=== PATIENT | female | born 1960 | race Caucasian/White ===

== ENCOUNTER 2021-12-30 08:47 | Day surgery (SDC) | payer MEDICARE, MEDICAID, SELFPAY ==
[2021-12-08 11:40] VITALS: BMI 26.4
--- NOTE | 2021-12-29 11:08 | P.CONAN_ITS ---
Documented by User: Rhina Varela NP 12/29/21 11:09 HPI - Anesthesia Eval Consult details Narrative: 61yo F for Upper Endoscopy and Colonoscopy Chronic opioids PMFSH Past Medical History Medical History (Updated 12/08/21 @ 11:33 by Amanda Roth RN) Diabetes Elevated cholesterol Fibromyalgia HTN (hypertension) Migraines Osteoarthritis Surgical History Surgical History (Updated 12/08/21 @ 11:33 by Amanda Roth RN) History of left oophorectomy Hx of cervical discectomy Hx of cholecystectomy Hx of reduction mammoplasty Social History Social History Patient Tobacco Use Status: Tobacco use Unknown Use of substances other than those prescribed or required for medical reasons: No Advance Directives Information Provided: Yes Advance Directives on File: No Meds Allergies Allergy/AdvReac Type Severity Reaction Status Date / Time Seasonal Allergies Allergy Intermediate Itchy Verified 12/08/21 11:39 Eyes/nasal congestion Home Medications Medication Instructions Recorded Confirmed Last Taken Type albuterol sulfate 90 mcg/actuation 2 puff INHALATION Q4-6H PRN 12/08/21 12/08/21 Unknown History aerosol inhaler (Ventolin HFA) amitriptyline 25 mg tablet 25 mg PO BEDTIME 12/08/21 12/08/21 Unknown History aspirin 81 mg tablet,delayed 81 mg PO DAILY 12/08/21 12/08/21 Unknown History release atorvastatin 20 mg tablet 20 mg PO BEDTIME 12/08/21 12/08/21 Unknown History cetirizine 10 mg tablet 10 mg PO DAILY 12/08/21 12/08/21 Unknown History cyclobenzaprine 5 mg tablet 5 mg PO BEDTIME 12/08/21 12/08/21 Unknown History docusate sodium 100 mg capsule 100 mg PO DAILY 12/08/21 12/08/21 Unknown History (Colace) duloxetine 60 mg capsule,delayed 60 mg PO DAILY 12/08/21 12/08/21 Unknown History release sprinkle lisinopril 5 mg tablet 5 mg PO DAILY 12/08/21 12/08/21 Unknown History metformin 500 mg tablet 500 mg PO DAILY 12/08/21 12/08/21 Unknown History metoprolol tartrate 50 mg tablet 50 mg PO BID 12/08/21 12/08/21 Unknown History oxycodone 10 mg tablet 10 mg PO Q6H PRN 12/08/21 12/08/21 Unknown History pantoprazole 40 mg tablet,delayed 40 mg PO DAILY 12/08/21 12/08/21 Unknown History release sumatriptan succinate 50 mg tablet 50 mg PO Q2-4H PRN 12/08/21 12/08/21 Unknown History (Imitrex) Exam Exam Date and Time: December 29, 2021 1108 Height,Weight and Vital Signs: Height 5 ft 1 in Weight 63.503 kg Assessment and Plan Assessment Anesthesia Assessment: Chart Reviewed Documented by User: Sheri Lind MD 12/30/21 10:19 [facility] Past Medical History Medical History (Updated 12/08/21 @ 11:33 by Amanda Roth RN) Diabetes Elevated cholesterol Fibromyalgia HTN (hypertension) Migraines Osteoarthritis Family History Family history of problems with anesthesia: No Surgical History Surgical History (Updated 12/08/21 @ 11:33 by Amanda Roth RN) History of left oophorectomy Hx of cervical discectomy Hx of cholecystectomy Hx of reduction mammoplasty History of Problems with Anesthesia: No Social History Social History Patient Tobacco Use Status: Tobacco use Unknown Use of substances other than those prescribed or required for medical reasons: No Advance Directives Information Provided: Yes Advance Directives on File: No Meds Allergies Allergy/AdvReac Type Severity Reaction Status Date / Time Seasonal Allergies Allergy Intermediate Itchy Verified 12/08/21 11:39 Eyes/nasal congestion Home Medications Medication Instructions Recorded Confirmed Last Taken Type albuterol sulfate 90 mcg/actuation 2 puff INHALATION Q4-6H PRN 12/08/21 12/08/21 Unknown History aerosol inhaler (Ventolin HFA) amitriptyline 25 mg tablet 25 mg PO BEDTIME 12/08/21 12/08/21 Unknown History aspirin 81 mg tablet,delayed 81 mg PO DAILY 12/08/21 12/08/21 Unknown History release atorvastatin 20 mg tablet 20 mg PO BEDTIME 12/08/21 12/08/21 Unknown History cetirizine 10 mg tablet 10 mg PO DAILY 12/08/21 12/08/21 Unknown History cyclobenzaprine 5 mg tablet 5 mg PO BEDTIME 12/08/21 12/08/21 Unknown History docusate sodium 100 mg capsule 100 mg PO DAILY 12/08/21 12/08/21 Unknown History (Colace) duloxetine 60 mg capsule,delayed 60 mg PO DAILY 12/08/21 12/08/21 Unknown History release sprinkle lisinopril 5 mg tablet 5 mg PO DAILY 12/08/21 12/08/21 Unknown History metformin 500 mg tablet 500 mg PO DAILY 12/08/21 12/08/21 Unknown History metoprolol tartrate 50 mg tablet 50 mg PO BID 12/08/21 12/08/21 Unknown History oxycodone 10 mg tablet 10 mg PO Q6H PRN 12/08/21 12/08/21 Unknown History pantoprazole 40 mg tablet,delayed 40 mg PO DAILY 12/08/21 12/08/21 Unknown History release sumatriptan succinate 50 mg tablet 50 mg PO Q2-4H PRN 12/08/21 12/08/21 Unknown History (Imitrex) Exam Height,Weight and Vital Signs: Height 5 ft 1 in Weight 63.503 kg Vital Signs Temp Pulse Resp BP Pulse Ox 12/30/21 08:51 98.5 F 100 16 147/77 H 98 Pertinent Lab Results Pertinent Lab Results: Lab Results 12/30/21 Range/Units 08:57 POC Glucose 147 H (60-115) mg/dL Airway Mallampati Class: II TM Dist: >3cm Neck ROM: Full Partial: Upper Heart: RRR Lungs: CTAB Assessment and Plan Assessment Anesthesia Assessment: Anesthesia Plan Discussed Final Anesthetic Review Family History of Problems with Anesthesia: No History of Problems with Anesthesia: No NPO: Yes ASA Class: II Final Preanesthetic Review: No Changes in Pt Med Stat, Meds/Allgs Chart Reviewed, Consent Obtained/Reviewed and Anes Risks/Benef Reviewed Patient Risk: Low Procedure Risk: Low Assessment/Block/Sedation in SS: Assess/Block/Sedation-SS Anesthetic Plan Anesthetic Plan: MAC: Disposition: Standard PACU
[2021-12-30 08:51] VITALS: BP 147/77; PULSE 100; RESP 16; TEMP 36.9; O2SAT 98
[2021-12-30 09:01] LABS: Glucose, Whole Blood 147 mg/dL (60-115)
[2021-12-30] MEDS: Lactated Ringers 1,000 ML 100 ML IVCONT (09:16)
--- NOTE | 2021-12-30 09:42 | MHC.SHP ---
Pre-Procedural Eval Section A Date of Service: 12/30/21 Section B Chief Complaint: epgastric pain Details of Present Illness: see h&p no changes Relevant Family History (Specify if Yes): No Relevant Social History: None Present Medications: see Short Stay Collaborative assessment Medical History: No relevant PMH History of Previous Operations: No relevant previous surgery Allergies: Allergies Allergy/AdvReac Type Severity Reaction Status Date / Time Seasonal Allergies Allergy Intermediate Itchy Verified 12/08/21 11:39 Eyes/nasal congestion Review of Systems Sugical H&P ROS: Negative: Constitution, Cardiovascular, Respiratory, Neurological, Psychiatric, Hem-Onc, Allergic/Immunologic, Gastrointestinal, Genitourinary, Musculoskeletal, Integumentary, Endocrine and Eyes/Ears/Nose/Throat Exam Surgical H&P Exam: Normal: HEENT, Normal: Heart, Normal: Lungs, Normal: Extremities, Normal: Abdomen, Normal: Skin and Normal: Neurological Plan Diagnosis/Plan: Unchanged I have reviewed the history and physical and performed a pertinent physical examination on my patient. No changes have occurred unless specified.
--- NOTE | 2021-12-30 10:26 | P.BOP_ITS ---
Brief Operative Note Date of Service: 12/30/21 Pre-op diagnosis: gerd screening Post-op diagnosis: same Procedure: egd colonoscopy Surgeon: Yonatan Nicole Anesthesia: MAC Was an [employer] Wireman used for this Procedure?: No Estimated blood loss (mL): 2 Pathology: other (bxs antrum and egj) Condition: stable Disposition: PACU
[2021-12-30 10:28] VITALS: BP 101/56; PULSE 81; RESP 16; TEMP 37; O2SAT 97
[2021-12-30 10:40] VITALS: BP 116/65; PULSE 81; RESP 18; TEMP 36.7; O2SAT 98
--- NOTE | 2021-12-30 20:58 | OP_ITS ---
SURGEON: Yonatan Nicole MD INDICATIONS: 1. Gastroesophageal reflux disease. 2. Colon cancer screening. PREOPERATIVE DIAGNOSIS: POSTOPERATIVE DIAGNOSIS: PROCEDURE PERFORMED: 1. Upper endoscopy with biopsy. 2. Colonoscopy to the terminal ileum. ESTIMATED BLOOD LOSS: COMPLICATIONS: ANESTHESIA: Monitored anesthesia care. ASSISTANTS: SPECIMENS: DESCRIPTION OF PROCEDURE: History and physical performed. The risks and benefits of the procedure were explained to the patient. Informed consent was obtained. The patient was placed in the left lateral decubitus position. The Olympus video gastroscope was introduced into the esophagus, stomach, and duodenum. Examination was performed. The scope was removed. She was repositioned for colonoscopy. A digital rectal exam was performed and was found to be normal. The Olympus pediatric video colonoscope was introduced into the rectum and advanced to the cecum without difficulty. The cecum was identified by transillumination, palpation, and identification of ileocecal valve. Examination was performed. The scope was removed. She tolerated both procedures well and was returned to recovery area in stable condition. FINDINGS: Upper endoscopy: 1. Esophagus: The esophagus was normal. There was no esophagitis. Biopsies were obtained from the EG junction. 2. Stomach: The stomach showed no evidence of masses, ulcers, or polyps. Antral biopsies were obtained. 3. Duodenum: The bulb and second portion were normal. Colonoscopy: The terminal ileum was normal. The visualized colonic mucosa was within normal limits without evidence of masses or ulcers. No polyps were identified. The quality of the prep was good. There were a few diverticula seen in the colon, mainly in the sigmoid. No polyps were identified. Retroflexed examination showed some small internal hemorrhoids. IMPRESSION: 1. Gastroesophageal reflux disease. 2. Normal colonoscopy. RECOMMENDATION: 1. Follow up the biopsy results. 2. Repeat colonoscopy is recommended in 10 years for average risk individuals. MD THAD Santiago/LIGIA / [id number]
== END 2021-12-30 11:24 | disposition home or self-care (01) ==
PROVIDERS: PCP Internal Medicine Geriatric Medicine; Visit Provider Internal Medicine Gastroenterology
PROC: (CPT 43239; principal; 2021-12-30 09:50)
DX: Z12.11 Encounter for screening for malignant neoplasm of colon (principal); K57.30 Diverticulosis of large intestine without perforation or abscess without bleeding; K64.8 Other hemorrhoids; R10.12 Left upper quadrant pain; R10.13 Epigastric pain; K21.9 Gastro-esophageal reflux disease without esophagitis; I10 Essential (primary) hypertension; E78.00 Pure hypercholesterolemia, unspecified; M79.7 Fibromyalgia; N80.9 Endometriosis, unspecified; E11.9 Type 2 diabetes mellitus without complications; Z79.84 Long term (current) use of oral hypoglycemic drugs; Z79.899 Other long term (current) drug therapy; Z90.49 Acquired absence of other specified parts of digestive tract
CPT/HCPCS: 43239; G0121; 82947; 88305; 88342

== ENCOUNTER 2023-04-22 14:48 | Outpatient (REF) | payer MEDICARE, SELFPAY ==
--- NOTE | ~2023-04-22 | MM_ITS ---
EXAMINATION: MM SCREENING DIGITAL BREAST TOMOSYNTHESIS, BILATERAL CLINICAL INFORMATION: Screening. Asymptomatic. The lifetime risk of breast cancer based on the Tyrer-Cuzick Model is 14%. COMPARISON: Outside mammography: 06/08/2019, 06/07/2018, 06/04/2017 ([facility]). TECHNIQUE: Digital breast tomosynthesis is performed in both the craniocaudal and mediolateral oblique views along with computer-aided detection (CAD). Synthesized 2D images are generated from the tomosynthesis. FINDINGS: The breasts are almost entirely fatty (ACR BI-RADS breast composition Category a). Background stromal markings are similar to outside studies. No developing density or architectural abnormality. There are no significant masses, abnormal calcifications, or other abnormalities. The axilla and skin contours are unremarkable. MM/MM tomosynthesis screening BI IMPRESSION: No mammographic evidence of malignancy. ASSESSMENT: BI-RADS 1: Negative RECOMMENDATION: Routine annual mammography screening. This patient's information was entered into a reminder system with a target due date for their next mammogram.
== END 2023-04-22 14:49 | disposition home or self-care (01) ==
LOC: HO.MAMMO 14:48
PROVIDERS: PCP Internal Medicine Geriatric Medicine; Visit Provider Internal Medicine Geriatric Medicine
DX: Z12.31 Encounter for screening mammogram for malignant neoplasm of breast (principal)
CPT/HCPCS: 77063; 77067

== ENCOUNTER 2023-05-26 15:20 | Outpatient (REF) | payer MEDICARE, MEDICAID, SELFPAY | END 2023-05-26 15:21 | disposition home or self-care (01) | LOC: HO.LNP 15:20 | PROVIDERS: PCP Internal Medicine Geriatric Medicine; Visit Provider Obstetrics & Gynecology | DX: R87.610 Atypical squamous cells of undetermined significance on cytologic smear of cervix (ASC-US) (principal); R87.810 Cervical high risk human papillomavirus (HPV) DNA test positive | CPT/HCPCS: 57454; 88305 ==

== ENCOUNTER 2023-05-26 15:20 | Outpatient (AMB) | payer MEDICARE, SELFPAY ==
--- NOTE | 2023-05-26 15:26 | MHC.OFFVIS ---
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 Ref/F/U Printer Slotter Feeder Required: Yes Printer Slotter Feeder Language: Digital Marketing Associate Name: Missy Information Interpreted: non-clinical & clinical Medical Imaging Tech: Medical Imaging Tech Present (Missy) Allergies Seasonal Allergies Allergy (Intermediate, Verified 05/26/23 15:33) Itchy Eyes/nasal congestion Is last menstrual period known: No Post menopausal: Yes HPI HPI Comments History of Present Illness Details Presenting from [facility] regarding ascus/HPV positive on Pap smear [facility] Medical History Diabetes Elevated cholesterol Fibromyalgia HTN (hypertension) Migraines Osteoarthritis Surgical History History of left oophorectomy Hx of cervical discectomy Hx of cholecystectomy Hx of reduction mammoplasty Family History Father Colon cancer Mother Breast cancer Social History Patient Tobacco Use Status: Tobacco use Unknown Female Reproductive History Menstrual Age of Menarche: 14 control method: none Total pregnancies: 4 Ab spontaneous: 4 History of abnormal pap smear: Yes Review of Systems Const All systems reviewed & are unremarkable except as noted in HPI and below Physical Exam Vital Signs: Last Vital Signs BP 154/90 H 05/26/23 15:28 BMI result Body Mass Index 23.4 General: Yes no CVA tenderness External Female Exam: normal external appearance and normal appearance of the urethra Speculum Exam - Vagina: normal appearance of the vagina, normal palpation, no lesions and no masses Speculum Exam - Cervix: normal appearance of the cervix, normal palpation, no lesions, no masses and nontender Bimanual exam- vagina & uterus: normal bimanual exam, normal palpation, uterine size normal, normal palpation, uterine shape normal, No Cervical tenderness present and non-tender Bimanual Exam- Adnexa, other: normal adnexae Back/Spine/Pelvis Back: no CVA tenderness Office Procedures Colposcopy Before the procedure was started discussed with the patient the procedure, alternatives & all the risks associated with the procedure (bleeding, infection, injury to vagina, bladder, vessels, possible need for transfusion with all its risks) then patient signed the consent Pap smear = ascus/HPV positive Speculum inserted, acetic acid used Colposcopy done Transformation zone seen, acetowhite lesions identified at 6 o?clock, cervical biopsies taken from 6 o?clock, ECC done afterwards. Vaginoscopy of the upper vagina showed no evidence of any aceto-white lesions Monsel solution used for hemostasis. The patient tolerated well . At the end the patient was instructed to call if temp>100.4, abdominal pain, n/v, bleeding; The patient was given the following instructions: nothing per vagina, no intercourse or bath tub use. All questions answered the patient verbalized understanding. Instructed the patient to make an appointment in 2 weeks for follow-up This note was generated with a voice recognition program. Some errors may have been overlooked during the review of this note. Sometimes these errors may affect the content or meaning of a given sentence. 48873-Tvecertwl of cervix including upper vagina with biopsy and ECC Procedure code (CPT) selection complete Assessment & Plan Assessment & Plan (1) ASCUS with positive high risk HPV cervical: Code(s): R87.610 - Atypical squamous cells of undetermined significance on cytologic smear of cervix (ASC-US); R87.810 - Cervical high risk human papillomavirus (HPV) DNA test positive Plan: Discussed with the patient the result of her abnormal pap, its significance, risk of progression, persistence, and regression if untreated. the false positive/negative rate being a screening test, the need for diagnostic test -colposcopy, biopsy, endocervical curettage. The patient verbalized understanding and agreed with the plan, all questions answered. Colpo done, see procedure note Orders: Orders AMB Colposcopy Today R87.610 - Atypical squamous cells of undetermined significance on cytologic smear of cervix (ASC-US), R87.810 - Cervical high risk human papillomavirus (HPV) DNA test positive Coding Level of Care Code Procedure Only Diagnoses ASCUS with positive high risk HPV cervical R87.610; R87.810 CPT Codes Colposcopy - CPT: 38919-Vlfzpbzok of cervix including upper vagina with biopsy and ECC ([id number])
[2023-05-26 15:28] VITALS: BP 154/90; BMI 23.4
== END 2023-05-26 15:49 | disposition home or self-care (01) ==
LOC: HO.HWS 15:20
PROVIDERS: PCP Internal Medicine Geriatric Medicine; Visit Provider Obstetrics & Gynecology
DX: R87.610 Atypical squamous cells of undetermined significance on cytologic smear of cervix (ASC-US) (principal)
CPT/HCPCS: 57454

== ENCOUNTER 2023-07-27 15:56 | Outpatient (AMB) | payer MEDICARE, MEDICAID, SELFPAY ==
--- NOTE | 2023-07-27 15:59 | MHC.OFFVIS ---
Intake Intake Visit Reasons: COLPO Resuls ok per Missy Irb Compliance Coordinator Required: Yes Irb Compliance Coordinator Language: Taping Supervisor Name: Missy Ramos Allergies Seasonal Allergies Allergy (Intermediate, Verified 07/27/23 16:00) Itchy Eyes/nasal congestion Is last menstrual period known: No Post menopausal: Yes HPI HPI Comments History of Present Illness Details Presenting post colpo for follow-up. The patient is doing well with no complaints. The pathology showed the following: A. Endocervix, curettage: Predominantly mucin and few fragments of endocervical glands; negative for squamous intraepithelial lesion. B. Cervix, biopsy: Predominately denuded mucosa with mild chronic inflammation and scant endocervical mucosa; negative for squamous intraepithelial lesion. COMMENT: Note is made of the patient's previous Pap smear (ASCUS; HPV+) PFSH Medical History Elevated cholesterol Osteoarthritis Migraines Fibromyalgia Diabetes HTN (hypertension) Surgical History Hx of cholecystectomy History of left oophorectomy Hx of reduction mammoplasty Hx of cervical discectomy Family History Father Colon cancer Mother Breast cancer Social History Patient Tobacco Use Status: Tobacco use Unknown Female Reproductive History Menstrual Age of Menarche: 14 control method: none Review of Systems Const All systems reviewed & are unremarkable except as noted in HPI and below Reports as per HPI and Reports no additional complaints GI Reports no additional complaints Reports no additional complaints Assessment & Plan Assessment & Plan (1) ASCUS with positive high risk HPV cervical: Code(s): R87.610 - Atypical squamous cells of undetermined significance on cytologic smear of cervix (ASC-US); R87.810 - Cervical high risk human papillomavirus (HPV) DNA test positive Plan: Discussed with the patient the pathology results of the colposcopy biopsies & endocervical curettage ( negative). Discussed with the patient the sensitivity specificity, positive and negative predictive value in detecting cervical cancer in addition discussed the regression, persistence and progression rates. Recommended co-testing in 12 months, if cytology and or HPV are abnormal will proceed was colposcopy biopsy and endocervical curettage. Instructions given to the patient to schedule a co test appointment in 1 year. All questions answered the patient verbalized understanding. Coding Level of Care Code Est Pt Level 3 (04286) Diagnoses ASCUS with positive high risk HPV cervical R87.610; R87.810
== END 2023-07-27 16:01 | disposition home or self-care (01) ==
PROVIDERS: PCP Internal Medicine Geriatric Medicine; Visit Provider Obstetrics & Gynecology
DX: R87.610 Atypical squamous cells of undetermined significance on cytologic smear of cervix (ASC-US) (principal); R87.810 Cervical high risk human papillomavirus (HPV) DNA test positive
CPT/HCPCS: 99213

== ENCOUNTER → 2023-07-27 15:56 | Outpatient (BNVA) | payer MEDICARE, MEDICAID, SELFPAY | PROVIDERS: PCP Internal Medicine Geriatric Medicine; Visit Provider Obstetrics & Gynecology | DX: R87.610 Atypical squamous cells of undetermined significance on cytologic smear of cervix (ASC-US) (principal); R87.810 Cervical high risk human papillomavirus (HPV) DNA test positive | CPT/HCPCS: 99212 ==

== ENCOUNTER 2023-08-25 14:59 | Outpatient (REF) | payer MEDICARE, MEDICAID, SELFPAY ==
[2023-08-25 17:22] LABS: Alanine Aminotransferase 11 U/L (0-31); Albumin Level 4.4 g/dL (3.5-5.0); Alkaline Phosphatase 82 U/L (39-117); Anion Gap 14 (12-20); Aspartate Amino Transferase 17 U/L (5-31); Bilirubin Total 0.3 mg/dL (0.0-1.0); Blood Urea Nitrogen 17 mg/dL (9-16); Carbon Dioxide 24 mmol/L (22-29); Chloride 104 mmol/L (96-108); Cholesterol 197 mg/dL (<200); Estimated Glomerular Filt Rate > 60; Glucose Random 114 mg/dL (60-115); HDL Cholesterol 40 mg/dL (>40); LDL Cholesterol Calculated 107 mg/dL (<100); Potassium 3.8 mmol/L (3.3-5.1); Sodium 138 mmol/L (135-145); Total Protein 7.3 g/dL (6.5-8.0); Triglycerides 254 mg/dL (<150)
[2023-08-25 17:32] LABS: Creatinine Urine 198.37 mg/dL
== END 2023-08-25 15:00 | disposition home or self-care (01) ==
LOC: HO.HHCL 14:59
PROVIDERS: Visit Provider Internal Medicine Geriatric Medicine
DX: E11.9 Type 2 diabetes mellitus without complications (principal)
CPT/HCPCS: 36415; 80053; 80061; 82043; 82570

== ENCOUNTER 2023-09-17 11:12 | Outpatient (REF) | payer OTHER, MEDICAID, SELFPAY ==
--- NOTE | ~2023-09-17 | XR_ITS ---
EXAMINATION: XR cervical spine 3V CLINICAL INFORMATION: Trauma COMPARISON: No prior imaging available for comparison TECHNIQUE: 4 views of the cervical spine were obtained. FINDINGS: The cervical spine is visualized to the level of C7-T1 on the lateral view. Status post C5-C7 anterior cervical discectomy and spinal fusion with interbody disc spacers. No evidence of hardware fracture or complication. Loss of the usual cervical spine lordosis. There is osseous fusion noted across C5 C7 Vertebral body heights are otherwise maintained. Lateral masses of C1 are well aligned on C2. Visualized portion of the dens is intact. Moderate multiple level degenerative disc disease with loss of disc space height, facet arthropathy and anterior disc osteophyte complexes. No prevertebral soft tissue swelling. XR/XR cervical spine 3V IMPRESSION: 1. Status post C5-C7 anterior cervical discectomy and spinal fusion with interbody disc spacers. No evidence of hardware fracture or complication. 2. Loss of the usual cervical spine lordosis.
--- NOTE | ~2023-09-17 | XR_ITS ---
EXAMINATION: XR RIBS, BILATERAL CLINICAL INFORMATION: Reason for Exam INJURY Neck, chest INJURY COMPARISON: None TECHNIQUE: 3 views of the Bilateral ribs. 1 view of the chest. FINDINGS: No displaced rib fracture. Clear lungs. No pneumothorax. No pleural effusion. Normal cardiomediastinal silhouette. Partially imaged cervical fusion hardware. Right upper quadrant cholecystectomy clips. XR/XR ribs BI min 4V w CXR1V IMPRESSION: No displaced rib fracture. Please note that rib radiographs have low sensitivity for detection of rib fractures and if continued clinical concern CT chest is advised.
== END 2023-09-17 11:13 | disposition home or self-care (01) ==
LOC: HO.XRAY 11:12
PROVIDERS: PCP Internal Medicine Geriatric Medicine; Visit Provider Emergency Medicine
DX: S19.9XXA Unspecified injury of neck, initial encounter (principal); S29.9XXA Unspecified injury of thorax, initial encounter
CPT/HCPCS: 71111; 72040

== ENCOUNTER 2024-07-25 11:20 | Outpatient (REF) | payer MEDICARE, SELFPAY ==
[2024-07-25 13:22] LABS: MANUAL DIFF FLAG NO
[2024-07-25 13:27] LABS: Basophils Absolute Auto 0.1 X10*3/uL (0.0-0.2); Basophils Percent Auto 1.4 % (0-2); Eosinophils Percent Auto 0.4 % (0-4); Hematocrit 40.8 % (37.0-47.0); Hemoglobin 13.5 g/dl (12.0-16.0); Imm Gran Abs Auto 0.03 X10*3/uL (0.00-0.03); Imm Gran Pct Auto 0.4 % (0.0-0.4); Lymphocytes Absolute Auto 2.5 X10*3/uL (1.2-4.9); Lymphocytes Percent Auto 30.1 % (20-40); Mean Corpuscular HGB Conc 33.1 g/dl (31.0-35.0); Mean Corpuscular Hemoglobin 29.5 pg (27.0-33.0); Mean Corpuscular Volume 89.3 fL (80.0-98.0); Mean Platelet Volume 11.8 fL (9.4-12.3); Monocytes Absolute Auto 0.6 X10*3/uL (0.1-1.2); Monocytes Percent Auto 7.1 % (2-11); Neutrophils Percent Auto 60.6 % (45-73); Platelet Count 298 X10*3/uL (160-400); Red Blood Count 4.57 X10*6/uL (4.20-5.50); Red Cell Distribution Width 13.8 % (11.0-16.0); White Blood Count 8.3 X10*3/uL (4.8-10.8)
[2024-07-25 13:49] LABS: Alanine Aminotransferase 12 U/L (0-31); Albumin Level 4.3 g/dL (3.5-5.0); Alkaline Phosphatase 90 U/L (39-117); Anion Gap 12 (12-20); Aspartate Amino Transferase 15 U/L (5-31); Bilirubin Total 0.2 mg/dL (0.0-1.0); Blood Urea Nitrogen 14 mg/dL (9-16); Calcium 9.6 mg/dL (8.4-10.2); Carbon Dioxide 26 mmol/L (22-29); Chloride 105 mmol/L (96-108); Cholesterol 224 mg/dL (<200); Estimated Glomerular Filt Rate > 60; Glucose Random 101 mg/dL (60-115); HDL Cholesterol 45 mg/dL (>40); LDL Cholesterol Calculated 128 mg/dL (<100); Potassium 4.5 mmol/L (3.3-5.1); Sodium 138 mmol/L (135-145); Total Protein 7.3 g/dL (6.5-8.0); Triglycerides 259 mg/dL (<150)
[2024-07-25 14:05] LABS: Creatinine Urine 123.17 mg/dL; Microalbum/Creatinine Ratio Ur 10.5 ug/mg cr (<30)
== END 2024-07-25 11:21 | disposition home or self-care (01) ==
LOC: HO.HHCL 11:20
PROVIDERS: Visit Provider Internal Medicine Geriatric Medicine
DX: E11.9 Type 2 diabetes mellitus without complications (principal); G24.3 Spasmodic torticollis; M54.2 Cervicalgia; G89.29 Other chronic pain
CPT/HCPCS: 36415; 80053; 80061; 82043; 82570; 85025

== ENCOUNTER 2025-01-19 15:18 | Outpatient (REF) | payer MEDICAID, SELFPAY ==
--- OUTSIDE RECORDS SUMMARY | 2025-01-19 17:18 | XMS_ITS | Encounter Summary ---
Author Organization [employer] Address [address] 7t [place] [address] Care Team Providers Care Cv/Cvn Cv Tsc System Operator Name Role Phone Name, Ran TAVARES Primary Care Provider [phone] Reason for Visit * Reason Onset Date Comments Med Refill 12/21/2024 Encounter Details Date Type Department Care Team ([facility] st Contact Info) Description 12/21/2024 Telephone [facility] MEDICINE [address] [place], [place] [phone] Name, MD Ran [address] [place], [place] [phone] Med Refill Social History Tobacco Use Types [...] 12:41 PM EST Medication was sent to [facility] #[id number] on 11/03/24 with 11 refills. * Telephone Encounter - Sunday Hinojosa - 12/21/2024 12:08 PM EST TC from pt requesting medication refill. Medications needing refill : Dulaglutide (Trulicity) 1.5 MG/0.5ML solution auto-injector To be sent to: [id number] [facility] documented in this encounter Plan of Treatment Upcoming Encounters Date Type Department Care Team ([facility] st Contact Info) Description 01/23/2025 9:45 AM EDT Office Visit [facility] MEDICINE [address] [place] [address] 03/12/2025 11:15 AM EDT Office Visit [facility] MEDICINE [address] [place] [address] Name, MD Ran [address] [place] [address] documented as of this encounter Visit Diagnoses Not on filedocumented in this encounter Additional Health Concerns Assessment Noted Time PHQ-9 Depression Total Score: 11 024 9:57 AM EST documented as of this encounter Care Teams Cv/Cvn Cv Tsc System Operator Relationship Specialty Start Date End Date Name, MD Ran [address] [place] [address] PCP - General Family Medicine 11/15/18 documented as of this encounter
--- OUTSIDE RECORDS SUMMARY | 2025-01-19 17:18 | XMS_ITS | Encounter Summary ---
Author Organization [employer] Address [address] 7[address] [place] [address] Care Team Providers Care Manager Risk Management Name Role Phone Name, Ran TAVARES Primary Care Provider [phone] Encounter Details Date Type Department Care Team [...] Description 01/23/2025 9:45 AM EDT Office Visit [facility] MEDICINE [address] [place] [address] 03/12/2025 11:15 AM EDT Office Visit [address] [address] NameRan MD [address] [place] [address] documented as of this encounter Visit Diagnoses Not on filedocumented in this encounter Additional Health Concerns Assessment Noted Time PHQ-9 Depression Total Score: 11 024 9:57 AM EST documented as of this encounter Care Teams Manager Risk Management Relationship Specialty Start Date End Date NameRan MD [address] [place] [address] PCP - General Family Medicine 11/15/18 documented as of this encounter
--- OUTSIDE RECORDS SUMMARY | 2025-01-19 17:18 | XMS_ITS | Encounter Summary ---
Author Organization [employer] Address [address] [place] [address] Care Team Providers Care Railroad Car Checker Name Role Phone Name, Ran TAVARES Primary Care Provider [phone] Reason for Visit * Reason Onset Date Comments Prior Authorization 12/21/2024 Encounter Details Date Type Department Care Team (Late st Contact Info) Description 12/21/2024 Telephone [facility] MEDICINE [address] [place], [place] [phone] Name, MD Ran [address] [place] [address] Prior Authorization Social History Tobacco Use Types [...] Description 01/23/2025 9:45 AM EDT Office Visit [facility] MEDICINE [address] [place] [address] 03/12/2025 11:15 AM EDT Office Visit [facility] MEDICINE [address] [place] [address] Name, MD Ran [address] [place] [address] documented as of this encounter Visit Diagnoses Not on filedocumented in this encounter Additional Health Concerns Assessment Noted Time PHQ-9 Depression Total Score: 11 024 9:57 AM EST documented as of this encounter Care Teams Railroad Car Checker Relationship Specialty Start Date End Date Name, MD Ran [address] [place] [address] PCP - General Family Medicine 11/15/18 documented as of this encounter
--- OUTSIDE RECORDS SUMMARY | 2025-01-19 17:18 | XMS_ITS | Encounter Summary ---
Author Organization [employer] Address [address] 7t [place] [address] Care Team Providers Care Accessories Repairer Name Role Phone Name, Ran TAVARES Primary Care Provider [phone] Reason for Visit * Reason Comments Med Refill Encounter Details Date Type Department Care Team (Late st Contact Info) Description 12/01/2022 Refill [facility] MEDICINE [address] [place] [address] [phone] NameRan MD [address] [place] [address] [phone] Type 2 diabetes mellitus without complication, unspecified whether retirement insulin use ([facility]) Social History Tobacco Use Types Packs/Day Years [...] Description 01/23/2025 9:45 AM EDT Office Visit [facility] MEDICINE [address] [place] [address] [phone] 03/12/2025 11:15 AM EDT Office Visit [facility] MEDICINE [address] [place] [address] [phone] NameRan MD [address] [place] [address] [phone] documented as of this encounter Visit Diagnoses Diagnosis Type 2 diabetes 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
--- OUTSIDE RECORDS SUMMARY | 2025-01-19 17:18 | XMS_ITS | Encounter Summary ---
Author Organization [employer] Address [address] 7t [place] [address] Care Team Providers Care Truck Dispatcher Name Role Phone Name, Ran TAVARES Primary Care Provider Encounter Details Date Type Department Care Team ([facility] st Contact Info) Description 12/26/2024 9:45 AM EST Office Visit [facility] MEDICINE [address] [place] [address] Roxane Farr FNP [address] [place] [address] Cervical spondylosis without myelopathy (Primary Dx); half-way (current) use of opiate analgesic Social History [...] this encounter Progress Notes * Roxane Farr, POSSUM TRAPPER - 12/26/2024 9:45 AM EST Subjective: Sophy [...] -UTOX and Pill count as expected Other half-way (current) use of opiate analgesic Overview Medication: oxycodone 10mg Q6H PRN Indication: cervical radiculitis, fibromyositis Last TELEPHONE OPERATOR Agreement: 09/26/24 Tier II (visit every 3 months) Relevant Orders POCT SHAY-14 Urine Drug Screen (Completed) Follow up: 1-3 months for [facility]. Follow up as scheduled with PCP, sooner as needed. * Sugey Solorio RN - 12/26/2024 9:45 AM EST .TELEPHONE OPERATOR data developer: PDMP reviewed today. Last fill date: 12/03/24 [...] Description 01/23/2025 9:45 AM EDT Office Visit [facility] MEDICINE [address] [place] [address] 03/12/2025 11:15 AM EDT Office Visit [facility] MEDICINE [address] [place] [address] Name, MD Ran [address] [place] [address] documented as of this encounter Procedures Procedure Name Priority Date/Time Associated Diagnosis Comments POCT SHAY-14 URINE DRUG SCREEN Routine 12/26/2024 1:56 PM EST termite technician (current) use of opiate analgesic documented in this encounter Results * POCT SHAY-14 Urine Drug Screen (12/26/2024 1:56 PM EST) Oxycodone Screen, Urine Positive Urine Urine specimen obtained by clean catch procedure / Unknown 12/26/2024 1:56 PM EST Narrative Sugey Soloroi RN - 12/26/2024 1:56 PM EST .UTOX cup Lot#[id number] Exp. 08/09/26 Internal Pass Control Roxane RAMIREZ POINT OF CARE TEST ENTER/EDIT ORDERABLES Final Result documented in this encounter Visit Diagnoses Diagnosis Cervical spondylosis without myelopathy- Primary termite technician (current) use of opiate analgesic documented in this encounter Additional Health Concerns Assessment Noted Time PHQ-9 Depression Total Score: 11 11/03/2 024 9:57 AM EST documented as of this encounter Care Teams Truck Dispatcher Relationship Specialty Start Date End Date Name, MD Ran [address] [place] [address] PCP - General Family Medicine 11/15/18 documented as of this encounter
--- OUTSIDE RECORDS SUMMARY | 2025-01-19 17:19 | XMS_ITS | Encounter Summary ---
Author Organization [employer] Address [address]t [place] [address] Care Team Providers Care Collector Of Port Name Role Phone Name, Ran TAVARES Primary Care Provider [phone] Reason for Visit * Reason Onset Date Comments appt change 01/21/2023 Encounter Details Date Type Department Care Team ([facility] Contact Info) Description 01/21/2023 Telephone [facility] MEDICINE [address] [place], [place] [phone] Name, MD Ran [address] [place] [address] appt change Social History Tobacco Use Types [...] Upcoming Encounters Date Type Department Care Team ([facility] Contact Info) Description 01/23/2025 9:45 AM EDT Office Visit [facility] MEDICINE [address] [place] [address] 03/12/2025 11:15 AM EDT Office Visit [facility] MEDICINE [address] [place] [address] Name, MD Ran [address] [place] [address] documented as of this encounter Visit Diagnoses Not on filedocumented in this encounter Care Teams Collector Of Port Relationship Specialty Start Date End Date Name, MD Ran [address] [place] [address] PCP - General Family Medicine 11/15/18 documented as of this encounter
--- OUTSIDE RECORDS SUMMARY | 2025-01-19 17:19 | XMS_ITS | Encounter Summary ---
Author Organization [employer] Address [address] [facility] [address] [address] [address] 7t [place] [address] Care Team Providers Care Stitcher Special Machine Name Role Phone Name, Ran TAVARES Primary Care Provider [phone] Reason for Visit * Reason Comments Med Refill Encounter Details Date Type Department Care Team ([facility] st Contact Info) Description 11/03/2023 Refill [facility] MEDICINE [address] [place], [place] [phone] Name, MD Ran [address] [place] [address] Essential hypertension Social History Tobacco Use Types [...] the past 12 months, has t he [employer], oil or water company threatened to shut [...] EDT Office Visit [facility] MEDICINE [address] [place] [address] 03/12/2025 11:15 AM EDT Office Visit [facility] MEDICINE [address] [place] [address] NameRan MD [address] [place] [address] documented as of this encounter Visit Diagnoses Diagnosis Essential hypertension Unspecified essential hypertension documented in this encounter Additional Health Concerns Assessment Noted Time PHQ-9 Depression Total Score: 19 023 4:10 PM EDT documented as of this encounter Care Teams Stitcher Special Machine Relationship Specialty Start Date End Date NameRan MD [address] [place] [address] PCP - General Family Medicine 11/15/18 documented as of this encounter
--- OUTSIDE RECORDS SUMMARY | 2025-01-19 17:19 | XMS_ITS | Clinical Summary ---
Author Organization [facility] Address [address] [place] [address] Care Team Providers Care Flush Tester Name Role Phone Name, Ran TAVARES Primary Care Provider [phone] Surgical History Surgery Date Site/Laterality Comments NECK SURGERY PROCEDURE: HISTORICAL NECK SURGERY; COMMENT: CS disc herniation OTHER SURGICAL HISTORY PROCEDURE: LAPAROSCOPY PROCEDURE NEC; COMMENT: pelvic for endometriosis OTHER SURGICAL HISTORY PROCEDURE: FL BSO W/OMENTECTOMY SARAH&RAD DEBULKING DISSECTION; COMMENT: right sided COLONOSCOPY 08/24/2011 PROCEDURE: FL COLONOSCOPY FLX DX W/COLLJ SPEC WHEN PFRMD; COMMENT: normal BREAST REDUCTION 2011 Bilateral PROCEDURE: FL BREAST REDUCTION; COMMENT: had repeat surgery Medical [...] Breast cancer risk category Low (<15%) Result [facility] Sophy Valdez [facility] IMG XR PROCEDURES Final Result from Last 3 Months or Most Recently Relevant to Health Maintenance Care Teams Flush Tester Relationship Specialty Start Date End Date Name, MD Ran [address] [place], [place] PCP - General Internal Medicine 03/04/09
--- OUTSIDE RECORDS SUMMARY | 2025-01-19 17:19 | XMS_ITS | Encounter Summary ---
Author Organization [employer] Address [address] [place] [address] Care Team Providers Care Wheelchair Van Driver Name Role Phone Name, Ran TAVARES Primary Care Provider [phone] Reason for Visit * Reason Comments Med Refill Encounter Details Date Type Department Care Team ([facility] st Contact Info) Description 12/29/2024 Refill [facility] MEDICINE [address] [place], [place] [phone] Name, MD Ran [address] [place] [address] Social History Tobacco Use Types Packs/Day Years [...] Description 01/23/2025 9:45 AM EDT Office Visit [address] [address] 03/12/2025 11:15 AM EDT Office Visit [address] [address] Name, MD Ran [address] [place] [address] documented as of this encounter Visit Diagnoses Not on filedocumented in this encounter Additional Health Concerns Assessment Noted Time PHQ-9 Depression Total Score: 11 024 9:57 AM EST documented as of this encounter Care Teams Wheelchair Van Driver Relationship Specialty Start Date End Date NameRan MD [address] [place] [address] PCP - General Family Medicine 11/15/18 documented as of this encounter
--- OUTSIDE RECORDS SUMMARY | 2025-01-19 17:19 | XMS_ITS | Encounter Summary ---
Author Organization [employer] Address [address] [facility] [place] [address] Care Team Providers Care Environmental Tech Name Role Phone Name, Ran TAVARES Primary Care Provider [phone] Encounter Details Date Type Department [facility] Description 03/17/[address] [facility] [address] [place], [place] [phone] Wandy Clarke LPN Social History Tobacco Use [...] Description 01/23/2025 9:45 AM EDT Office Visit [facility] MEDICINE [address] [place] [address] [phone] 03/12/2025 11:15 AM EDT Office Visit [facility] MEDICINE [address] [place] [address] [phone] Name, MD Ran [address] [place] [address] documented as of this encounter Visit Diagnoses Not on filedocumented in this encounter Care Teams Environmental Tech Relationship Specialty Start Date End Date Name, MD Ran [address] [place] [address] PCP - General Family Medicine 11/15/18 documented as of this encounter
--- OUTSIDE RECORDS SUMMARY | 2025-01-19 17:19 | XMS_ITS | Clinical Summary ---
Author Organization [employer] Address [address] [place] [address] Care Team Providers Care Lockstitcher Name Role Phone Name, Ran TAVARES Primary Care Provider Allergies Active Allergy Reactions Criticality Noted Date [...] 2024 Active Blood Glucose Monitoring Suppl (FreeStyle Frederick Lite) w/Device kit Use to test blood [...] complication, without long-term current use of insulin ([facility]),Chest tightness Inject 0.5 mL (1.5 mg) under [...] Active Problems Problem Noted Date Diagnosed Date 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 At this time Sophy FlahertyRolna meets criteria for Visit Diagnoses: Problem List Items Addressed This Visit Other ALCON (generalized anxiety disorder) Recurrent major depressive disorder, in remission (CMS/[facility]) Patient ready to address current needs Yes Strengths include willing to seek treatment. PLAN: 1. Follow up with [facility] [place]: Not recommended for follow-up 2. Patient goal is to engage in OP services. 3. Behavioral Recommendations a. Ind. Therapy, referral will be placed b. Medication Management, referral will be placed. c. Use of coping skills provided Current moderate episode of major depressive dis order 03/21/2009 Overview (06/24/2023): Patient is follows at [facility]. She is prescribed antidepressant and Seroquel Resolved Problems Problem Noted Date Diagnosed Date Resolved Date Chronic hoarseness 10/22/2022 Prediabetes 09/23/2016 01/20/2023 Secondary hypertension 02/03/201601/20 Abnormal mammogram 12/13/2015 4 Heartburn 08/10/2014 02/15/2024 Hyperglycemia 08/18/2012 02/15/2024 Abnormal brain MRI 03/10/2011 3 Encounters Date Type Department Care Team Description 01/16/2025 Refill [facility] [address] [facility] [place] [address] Ran Carrasquillo MD Seasonal allergic rhinitis, unspecified trigger 01/15/2025 Refill [facility] [address] [facility] [place] [address] Ran Carrasquillo MD Seasonal allergic rhinitis, unspecified trigger 12/29/2024 Refill [facility] [address] [place] [address] Ran Carrasquillo MD Cervical spondylosis without myelopathy 12/29/2024 Refill [facility] [address] [place] [address] Ran Carrasquillo MD 12/26/2024 9:45 AM EST Office Visit [facility] [address] [facility] [place] [address] Roxane Farr, SHIELD CLEANER Cervical spondylosis without myelopathy (Primary Dx); 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 12/26/2024 Refill [facility] [place] [address] Jania Oliveira, RN 12/26/2024 Travel 12/21/2024 Telephone [facility] [address] [place] [address] Ran Carrasquillo MD Prior Authorization 12/21/2024 Telephone [facility] [address] [place] [address] Ran Carrasquillo MD Med Refill 12/01/2024 Telephone [facility] [address] [place] [address] Ran Carrasquillo MD Med Refill 12/01/2024 Telephone [facility] [address] [place] [address] Ran Carrasquillo MD Appointment Request 12/01/2024 Refill [facility] [address] [place] [address] Ran Carrasquillo MD Cervical spondylosis without myelopathy 11/10/2024 1:45 PM EST Office Visit [facility] [address] [place] [address] Michaelle Olsen, STUART Type 2 diabetes mellitus without complication, without long-term current use of insulin (CMS/HCC) (Primary Dx); Macular scar of right eye; Hypermetropia, bilateral 11/10/2024 Travel 11/03/2024 10:00 AM EST Office Visit [facility] [address] [place] [address] Ran Carrasquillo MD Type 2 diabetes mellitus without complication, without long-term current use of insulin (CMS/HCC) (Primary Dx); Chest tightness 10/26/2024 Patient Outreach [facility] [address] [place] [address] Ran Carrasquillo MD Care Coordination (CHW outreach for SDOH food needs - LVM ) 10/26/2024 Patient Outreach [facility] [address] [place] [address] Ran Carrasquillo MD Pre-visit Planning (SDOH Screening positive and Tobacco screening negative) 10/26/2024 Refill [facility] [address] [place] [address] Ran Carrasquillo MD Cervical spondylosis without myelopathy [...] Description 01/23/2025 9:45 AM EDT Office Visit [facility] [address] [facility] [place] [address] 03/12/2025 11:15 AM EDT Office Visit [facility] [place] [address] Name, [place] [address] Health Maintenance Due Date Last Done Comments [...] DRUG SCREEN Routine 12/26/2024 1:56 PM EST senior care (current) use of opiate analgesic ECG 12-LEAD Routine 11/03/2024 10:40 AM EST Chest tightness POCT GLUCOSE Routine 11/03/2024 9:58 AM EST Type 2 diabetes mellitus without complication, without long-term current use of insulin ([facility]/HCC) POCT GLYCATED HEMOGLOBIN, TOTAL Routine 07/28/2024 10:01 AM EDT Type 2 diabetes mellitus without complication, without long-term current use of insulin ([facility]) ALBUMIN, RANDOM URINE W/CREATININE Routine 07/25/2024 11:47 AM EDT Type 2 diabetes mellitus without complication, without long-term current use of insulin ([facility]) LIPID PANEL, STANDARD Routine 07/25/2024 11:30 AM EDT Type 2 diabetes mellitus without complication, without long-term current use of insulin ([facility]CC) Cervical dystonia Chronic neck pain MAMMOGRAPHY Routine [...] - 12/26/2024 1:56 PM EST .UTOX cup Lot#[id number] Exp. 08/09/26 Internal Pass Control Roxane Farr SHIELD CLEANER POINT OF CARE TEST ENTER/EDIT ORDERABLES Final [...] 11:47 AM EDT) Creatinine, Urine 123.17 mg/dL [facility] Microalbumin Urine 13.0 mg/L [facility] Microalbum Creatinine Ratio Ur 10.5 <30 ug/mg cr [facility] Comment:Albumin/Creatinine R atio Reference Ranges: Normal: < 30 ug/mg creatinine Microalbuminuria: 30 - 300 ug/mg creatinineClinical Albuminuria: > 300 ug/mg creatinine Urine (Urine, Random) 07/25/2024 11:47 AM EDT 07/25/2024 1:03 PM EDT us Ran Carrasquillo MD LAB URINE ORDERABLES Final Resul t [facility] [address] [place] [phone] * (ABNORMAL) Lipid Panel, Standard (07/25/2024 11:30 AM EDT) Triglycerides 259(H) <150 mg/dL [facility] Comment:Desirable Triglyceri de: less than 150 mg/dLBorderline High Triglyceride 150-199 mg/dLHigh Triglyceride: 200-499 mg/dLVery High Triglyceride: greater than or equal to 5OO mg/dL Cholesterol 224(H) <200 mg/dL [facility] Comment:Desirable Cholestero l: less than 200 mg/dLBorderline High Cholesterol: 200-239 mg/dLHigh Cholesterol: greater than 239 mg/dL LDL Cholesterol Calculated 128(H) <100 mg/dL [facility] Comment:Desirable LDL: less than 100 mg/dLNear Optimal/Above Optimal LDL: 110- 129 mg/dLBorderline High LDL: 130-159 mg/dLHigh LDL: 160-189 mg/dLVery High LDL: greater than or equal to 190 mg/dL HDL Cholesterol 45 >40 mg/dL [facility] Comment:Desirable HDL: great er than 40 mg/dL Note: This HDL assay may give artificially low results in patients with liver disease. Blood Venous blood specimen / Unknown 07/25/2024 11:30 AM EDT 07/25/2024 1:15 PM EDT us Ran Carrasquillo MD LAB BLOOD ORDERABLES Final Resul t [facility] [address] [place] [phone] * Mammography (05/14/2023 4:05 PM EDT) Mammogram BI-RADS 1: Negative Anatomical Region Laterality Modality Other us Ran Carrasquillo MD HEALTH MAINTENANCE Final Result * (ABNORMAL) THINPREP TIS PAP AND HPV mRNA E6/E7, CT/NG, TRICH (07/15/2022 1:59 PM EDT) Chlamydia trachomatis RNA, TMA, Urogenital NOT DETECTED NOT DETECTED [facility] Clinical Information: MENOPAUSAL [facility] COMMENT SEE COMMENT [facility] Comment: The analytical performance characteristics of this assay, when used to test SurePath(TM) specimens have been determined by [employer]. The modifications have not been cleared or approved by the FDA. This assay has been validated pursuant to the CLIA regulations and is used for clinical purposes. ?? For additional information, please refer to https://SnapRetail.RallyPoint/faq/PRB003 (This link is being provided for information/ [...] has been evaluated with computer assisted technology. [facility] Librarian Assistant: SEE COMMENT [facility] Comment: GSG, CT(ASCP) CT screening location: [address] ??[address] General Categorization: EPITHELIAL CELL ABNORMALITY(A) [facility] HPV nRNA E6/E7 Detected(A) Not Detected [facility] Comment: Methodology: Surgical Aides Teacher-Mediated Amplification This assay detects E6/E7 viral messenger RNA (mRNA) from 14 high-risk HPV types (16,18,31,33,35,39,45,51,52,56,58,59,66,68). ? Cervical sources are required for HPV testing. If a vaginal source from a patient who has had a total hysterectomy with removal of cervix was ?? submitted, please contact the testing laboratory for alternative testing options. ?? For additional information, please refer to http://SnapRetail.RallyPoint/faq/UDB253q0 (This link if provided for information/ educational purposes only.) Interpretation/Res ult: Atypical Squamous Cells of Undetermined Significance (ASC-US)(A) [facility] LMP: NONE GIVEN [facility] Neisseria gonorrhoeae RNA, TMA, Urogenital NOT DETECTED NOT DETECTED [facility] PATHOLOGIST: SEE COMMENT [facility] Comment: Akilah Morocho D.O. Board Certified in Anatomic, Clinical and Cytopathology (electronic signature) Prev. BX: NONE GIVEN [facility] Prev. PAP: PAP NIL NEG 2013 [facility] SOURCE: None given [facility] Statement Of Adequacy: SEE COMMENT [facility] Comment: Satisfactory for evaluation. Endocervical/transformation zone component present. Trichomonas vaginalis, QL, TMA, PAP Vial NOT DETECTED NOT DETECTED [facility] Comment: The analytical performance characteristics of this assay have been determined by [employer]. The modifications have not been cleared or approved by the FDA. This assay has been validated pursuant to the CLIA regulations and is used for clinical purposes. ?? For additional information, please refer to http://education.RallyPoint/ faq/Trichomonastma (This link is being provided for information/ educational purposes only.) ?? 07/15/2022 1:59 PM EDT Thais Jim CNM LAB PATHOLOGY ORDERABLES Final Result [facility] [address] [place] [address], * Pap Smear (07/15/2022 12:00 AM EDT) [...] Most Recently Relevant to Health Maintenance Insurance Connect STANDARD [facility] [place] [phone] [facility] PPO Care Teams Lockstitcher Relationship Specialty Start Date End Date Name, MD Ran [address] [place] [address] PCP - General Family Medicine 11/15/18
--- OUTSIDE RECORDS SUMMARY | 2025-01-19 17:19 | XMS_ITS | Encounter Summary ---
Author Organization [employer] Address [address] 7[address] [place] [address] Care Team Providers Care Support Engineer Name Role Phone Name, Ran TAVARES Primary Care Provider [phone] Reason for Visit * Reason Comments Med Refill Encounter Details Date Type Department Care Team ([facility] st Contact Info) Description 06/22/2024 Refill [facility] [address] [place], [place] [phone] Name, MD Ran [address] [place] [address] Social History Tobacco Use Types Packs/Day Years [...] Description 01/23/2025 9:45 AM EDT Office Visit [facility] [address] [place] [address] 03/12/2025 11:15 AM EDT Office Visit [facility] [address] [place] [address] Name, MD Ran [address] [place] [address] documented as of this encounter Visit Diagnoses Not on filedocumented in this encounter Additional Health Concerns Assessment Noted Time PHQ-9 Depression Total Score: 19 023 4:10 PM EDT documented as of this encounter Care Teams Support Engineer Relationship Specialty Start Date End Date Name, MD Ran [address] [place] [address] PCP - General Family Medicine 11/15/18 documented as of this encounter
--- OUTSIDE RECORDS SUMMARY | 2025-01-19 17:19 | XMS_ITS | Encounter Summary ---
Author Organization [employer] Address [address]t [place] [address] Care Team Providers Care Vamp Wetter Name Role Phone Name, Ran TAVARES Primary Care Provider [phone] Reason for Visit * Reason Comments Med Refill Encounter Details Date Type Department Care Team ([facility] st Contact Info) Description 02/19/2024 Refill [facility] [address] [place], [place] [phone] Name, MD Ran [address] [place] [address] Social History Tobacco Use Types Packs/Day Years [...] Description 01/23/2025 9:45 AM EDT Office Visit [facility] [address] [place] [address] 03/12/2025 11:15 AM EDT Office Visit [facility] [address] [place] [address] Name, MD Ran [address] [place] [address] documented as of this encounter Visit Diagnoses Not on filedocumented in this encounter Additional Health Concerns Assessment Noted Time PHQ-9 Depression Total Score: 19 023 4:10 PM EDT documented as of this encounter Care Teams Vamp Wetter Relationship Specialty Start Date End Date Name, MD Ran [address] [place] [address] PCP - General Family Medicine 11/15/18 documented as of this encounter
--- OUTSIDE RECORDS SUMMARY | 2025-01-19 17:19 | XMS_ITS | Encounter Summary ---
Author Organization [employer] Address [address] 7[address] [place] [address] Care Team Providers Care Pump Installer Name Role Phone Name, Ran TAVARES Primary Care Provider [phone] Reason for Visit * Reason Onset Date Comments Med Refill 06/01/2024 Encounter Details Date Type Department Care Team ([facility] st Contact Info) Description 06/01/2024 Telephone [facility] [address] [place], [place] [phone] Name, MD Ran [address] [place], [place] [phone] Med Refill Social History Tobacco Use Types [...] mg immediate release tablet rx. Filled at [facility] [place], for qty - 112 for 28 days supply. Meds. [facility] for approval. * Telephone Encounter - Aure Ferreira - 06/01/2024 1:20 PM EDT TC from pt requesting medication refill. Medications needing refill : oxyCODONE (Roxicodone) 10 MG immediate release tablet To be sent to: [id number] - [address] AT [facility] documented in this encounter Plan of Treatment Upcoming Encounters Date Type Department Care Team ([facility] st Contact Info) Description 01/23/2025 9:45 AM EDT Office Visit [facility] [address] [place] [address] [phone] 03/12/2025 11:15 AM EDT Office Visit [facility] [address] [place] [address] Name, MD Ran [address] [place] [address] documented as of this encounter Visit Diagnoses Not on filedocumented in this encounter Additional Health Concerns Assessment Noted Time PHQ-9 Depression Total Score: 19 023 4:10 PM EDT documented as of this encounter Care Teams Pump Installer Relationship Specialty Start Date End Date Name, MD Ran [address] [place] [address] PCP - General Family Medicine 11/15/18 documented as of this encounter
--- OUTSIDE RECORDS SUMMARY | 2025-01-19 17:19 | XMS_ITS | Encounter Summary ---
Author Organization [employer] Address [address] [place] [address] Care Team Providers Care Business Systems Architect Name Role Phone Name, Ran TAVARES Primary Care Provider [phone] Reason for Visit * Reason Onset Date Comments Med Refill 12/29/2024 Encounter Details Date Type Department Care Team (Late st Contact Info) Description 12/29/2024 Refill [facility] [address] [place], [place] [phone] Name, MD Ran [address] [place] [address] Cervical spondylosis without myelopathy Social History Tobacco [...] immediate release tablet To be sent to: [facility][id number] - [address] AT [facility] documented in this encounter Plan of Treatment Upcoming Encounters Date Type Department Care Team ([facility] st Contact Info) Description 01/23/2025 9:45 AM EDT Office Visit [facility] [address] [place] [address] 03/12/2025 11:15 AM EDT Office Visit [facility] [address] [place] [address] NameRan MD [address] [place] [address] documented as of this encounter Visit Diagnoses Diagnosis Cervical spondylosis without myelopathy documented in this encounter Additional Health Concerns Assessment Noted Time PHQ-9 Depression Total Score: 11 024 9:57 AM EST documented as of this encounter Care Teams Business Systems Architect Relationship Specialty Start Date End Date NameRan MD [address] [place] [address] PCP - General Family Medicine 11/15/18 documented as of this encounter
--- OUTSIDE RECORDS SUMMARY | 2025-01-19 17:19 | XMS_ITS | Encounter Summary ---
Author Organization [employer] Address [address] [place] [address] Care Team Providers Care Zyglo Inspector Name Role Phone Name, Ran TAVARES Primary Care Provider Reason for Visit * Reason Onset Date Comments Error (VOID this visit) 12/26/2024 Encounter Details Date Type Department Care Team (Late st Contact Info) Description 12/26/2024 Refill [facility] [address] [place], [place] [phone] Jania Oliveira RN Social History Tobacco Use [...] Description 01/23/2025 9:45 AM EDT Office Visit [facility] [address] [place] [address] 03/12/2025 11:15 AM EDT Office Visit [address] [address] Name, MD Ran [address] [place] [address] documented as of this encounter Visit Diagnoses Not on filedocumented in this encounter Additional Health Concerns Assessment Noted Time PHQ-9 Depression Total Score: 11 024 9:57 AM EST documented as of this encounter Care Teams Zyglo Inspector Relationship Specialty Start Date End Date NameRan MD [address] [place] [address] PCP - General Family Medicine 11/15/18 documented as of this encounter
--- OUTSIDE RECORDS SUMMARY | 2025-01-19 17:19 | XMS_ITS | Encounter Summary ---
Author Organization [employer] Address [address] [place] [address] Care Team Providers Care Paper Winder Name Role Phone Name, Ran TAVARES Primary Care Provider Reason for Visit * Reason Onset Date Comments Appointment Request 12/01/2024 Encounter Details Date Type Department Care Team ([facility] st Contact Info) Description 12/01/2024 Telephone [facility] [address] [place], [place] [phone] Name, MD Ran [address] [place], [place] [phone] Appointment Request Social History Tobacco Use Types [...] Description 01/23/2025 9:45 AM EDT Office Visit [facility] [address] [place] [address] 03/12/2025 11:15 AM EDT Office Visit [facility] [address] [place] [address] Name, MD Ran [address] [place] [address] documented as of this encounter Visit Diagnoses Not on filedocumented in this encounter Additional Health Concerns Assessment Noted Time PHQ-9 Depression Total Score: 11 024 9:57 AM EST documented as of this encounter Care Teams Paper Winder Relationship Specialty Start Date End Date Ran Carrasquillo MD [address] [place] [address] PCP - General Family Medicine 11/15/18 documented as of this encounter
--- OUTSIDE RECORDS SUMMARY | 2025-01-19 17:19 | XMS_ITS | Encounter Summary ---
Author Organization [employer] Address [address] [place] [address] Care Team Providers Care Shrimp Picker Name Role Phone Name, Ran TAVARES Primary Care Provider [phone] Encounter Details Date Type Department Care Team (Late Contact Info) Description 04/26/[address] [address] Ran Carrasquillo MD [address] [place] [phone] Social History Tobacco Use Types Packs/Day Years [...] Description 01/23/2025 9:45 AM EDT Office Visit [address] [address] 03/12/2025 11:15 AM EDT Office Visit [address] [phone] Ran Carrasquillo MD [address] [place] [address] documented as of this encounter Procedures Procedure [...] on filedocumented in this encounter Care Teams Shrimp Picker Relationship Specialty Start Date End Date Name, MD Ran [address] [place] [address] PCP - General Family Medicine 11/15/18 documented as of this encounter
--- OUTSIDE RECORDS SUMMARY | 2025-01-19 17:19 | XMS_ITS | Encounter Summary ---
Author Organization [employer] Address [address] [place] [address] Care Team Providers Care Legal Clerk Name Role Phone Name, Ran TAVARES Primary Care Provider [phone] Reason for Visit * Reason Comments Med Refill Encounter Details Date Type Department Care Team ([facility] st Contact Info) Description 11/12/2023 Refill [facility] [address] [place], [place] [phone] Name, MD Ran [address] [place] [address] Seasonal allergic rhinitis, unspecified trigger Social History [...] Description 01/23/2025 9:45 AM EDT Office Visit [facility] [address] [place] [address] 03/12/2025 11:15 AM EDT Office Visit [address] [address] NameRan MD [address] [place] [address] documented as of this encounter Visit Diagnoses Diagnosis Seasonal allergic rhinitis, unspecified trigger documented in this encounter Additional Health Concerns Assessment Noted Time PHQ-9 Depression Total Score: 19 023 4:10 PM EDT documented as of this encounter Care Teams Legal Clerk Relationship Specialty Start Date End Date NameRan MD [address] [place] [address] PCP - General Family Medicine 11/15/18 documented as of this encounter
--- OUTSIDE RECORDS SUMMARY | 2025-01-19 17:19 | XMS_ITS | Encounter Summary ---
Author Organization [employer] Address [address] [facility] [address] 7t [place] [address] Care Team Providers Care Manual Arts Teacher Name Role Phone Name, Ran TAVARES Primary Care Provider [phone] Reason for Visit * Reason Comments Med Refill Encounter Details Date Type Department Care Team ([facility] st Contact Info) Description 01/15/2025 Refill [facility] 230 [place], [place] [phone] Name, MD Ran 230 [place] [address] Seasonal allergic rhinitis, unspecified trigger Social History [...] Description 01/23/2025 9:45 AM EDT Office Visit [address] [address] 03/12/2025 11:15 AM EDT Office Visit [address] [address] NameRan MD [address] [place] [address] documented as of this encounter Visit Diagnoses Diagnosis Seasonal allergic rhinitis, unspecified trigger documented in this encounter Additional Health Concerns Assessment Noted Time PHQ-9 Depression Total Score: 11 024 9:57 AM EST documented as of this encounter Care Teams Manual Arts Teacher Relationship Specialty Start Date End Date Name, MD Ran [address] [place] [address] PCP - General Family Medicine 11/15/18 documented as of this encounter
--- OUTSIDE RECORDS SUMMARY | 2025-01-19 17:19 | XMS_ITS | Encounter Summary ---
Author Organization [employer] Address [address] [facility] [address] 7t [place] [address] Care Team Providers Care Glazier Helper Name Role Phone Name, Ran TAVARES Primary Care Provider [phone] Reason for Visit * Reason Onset Date Comments Appointment Request 08/24/2024 Encounter Details Date Type Department Care Team ([facility] st Contact Info) Description 08/24/2024 Telephone [facility] 230 [place], [place] [phone] Name, MD Ran 230 [place] [address] Appointment Request Social History Tobacco Use Types [...] pain management appt. Please contact pt at [phone]. (Georgian Speaker) documented in this encounter Plan of Treatment Upcoming Encounters Date Type Department Care Team (Late st Contact Info) Description 01/23/2025 9:45 AM EDT Office Visit [facility] [address] [place] [address] 03/12/2025 11:15 AM EDT Office Visit [facility] [address] [place] [place] [address] Name, MD Ran [address] [place] [address] documented as of this encounter Visit Diagnoses Not on filedocumented in this encounter Additional Health Concerns Assessment Noted Time PHQ-9 Depression Total Score: 19 023 4:10 PM EDT documented as of this encounter Care Teams Glazier Helper Relationship Specialty Start Date End Date Name, MD Ran [address] [place] [address] PCP - General Family Medicine 11/15/18 documented as of this encounter
--- OUTSIDE RECORDS SUMMARY | 2025-01-19 17:19 | XMS_ITS | Encounter Summary ---
Author Organization [employer] Address [address] [facility] [address] 7t [place] [address] Care Team Providers Care Strapping Machine Tender Name Role Phone Name, Ran TAVARES Primary Care Provider [phone] Reason for Visit * Reason Comments Med Refill Encounter Details Date Type Department Care Team ([facility] st Contact Info) Description 01/16/2025 Refill [facility] 230 [place], [place] [phone] Name, MD Ran 230 [place] [address] Seasonal allergic rhinitis, unspecified trigger Social History [...] Description 01/23/2025 9:45 AM EDT Office Visit [facility] [address] [place] [address] 03/12/2025 11:15 AM EDT Office Visit [address] [address] Name, MD Ran [address] [place] [address] documented as of this encounter Visit Diagnoses Diagnosis Seasonal allergic rhinitis, unspecified trigger documented in this encounter Additional Health Concerns Assessment Noted Time PHQ-9 Depression Total Score: 11 024 9:57 AM EST documented as of this encounter Care Teams Strapping Machine Tender Relationship Specialty Start Date End Date NameRan MD [address] [place] [address] PCP - General Family Medicine 11/15/18 documented as of this encounter
--- OUTSIDE RECORDS SUMMARY | 2025-01-19 17:19 | XMS_ITS | Encounter Summary ---
Author Organization [employer] Address [address] [facility] [address] 7t [place] [address] Care Team Providers Care Process Control Technician Name Role Phone Name, Ran TAVARES Primary Care Provider [phone] Reason for Visit * Reason Comments Med Refill Encounter Details Date Type Department Care Team ([facility] st Contact Info) Description 03/17/2024 Refill [facility] 230 [place], [place] [phone] Name, MD Ran 230 [place] [address] Social History Tobacco Use Types Packs/Day Years [...] 01/23/2025 9:45 AM EDT Office Visit [facility] [address] [place] [address] 03/12/2025 11:15 AM EDT Office Visit [facility] [address] [place] [address] Name, MD Ran [address] [place] [address] documented as of this encounter Visit Diagnoses Not on filedocumented in this encounter Additional Health Concerns Assessment Noted Time PHQ-9 Depression Total Score: 19 023 4:10 PM EDT documented as of this encounter Care Teams Process Control Technician Relationship Specialty Start Date End Date Name, MD Ran [address] [place] [address] PCP - General Family Medicine 11/15/18 documented as of this encounter
--- OUTSIDE RECORDS SUMMARY | 2025-01-19 17:19 | XMS_ITS | Encounter Summary ---
Author Organization [employer] Address [address] [facility] [address] 7t [place] [address] Care Team Providers Care Frame Coverer Name Role Phone Name, Ran TAVARES Primary Care Provider [phone] Reason for Visit * Reason Comments Med Refill Encounter Details Date Type Department Care Team ([facility] st Contact Info) Description 10/06/2023 Refill [facility] 230 [place], [place] [phone] [facility] 230 [place], [place] [phone] Social History Tobacco Use Types Packs/Day Years [...] the past 12 months, has t he [employer] oil or water company threatened to shut [...] Description 01/23/2025 9:45 AM EDT Office Visit [facility] [address] [place] [address] 03/12/2025 11:15 AM EDT Office Visit [facility] [address] [place] [address] NameRan MD [address] [place] [address] documented as of this encounter Visit Diagnoses Not on filedocumented in this encounter Additional Health Concerns Assessment Noted Time PHQ-9 Depression Total Score: 19 023 4:10 PM EDT documented as of this encounter Care Teams Frame Coverer Relationship Specialty Start Date End Date NameRan MD [address] [place] [address] PCP - General Family Medicine 11/15/18 documented as of this encounter
--- OUTSIDE RECORDS SUMMARY | 2025-01-19 17:19 | XMS_ITS | Encounter Summary ---
Author Organization [employer] Address [address] [facility] [address] 7t [place] [address] Care Team Providers Care Ash Pit Worker Name Role Phone Name, Ran TAVARES Primary Care Provider [phone] Reason for Visit * Reason Onset Date Comments Appointment Request 02/10/2023 Encounter Details Date Type Department Care Team ([facility] st Contact Info) Description 02/10/2023 Telephone [facility] MEDICINE [address] [place] [address] [phone] Name, MD Ran 230 [place], [place] [phone] Appointment Request Social History Tobacco Use Types [...] r/s once again. Please contact pt at [phone]. PCP Dr. Name * Telephone Encounter - Michelle Ghosh - 02/10/2023 11:50 AM EDT Tc from pt requesting to r/s appt for DERM NEW on 02/12/2023 Please contact pt at [phone] Portuguese Speaker documented in this encounter Plan of Treatment Upcoming Encounters Date Type Department Care Team (Late st Contact Info) Description 01/23/2025 9:45 AM EDT Office Visit [address] [address] 03/12/2025 11:15 AM EDT Office Visit [address] [address] Name, MD Ran [address] [place] [address] documented as of this encounter Visit Diagnoses Not on filedocumented in this encounter Care Teams Ash Pit Worker Relationship Specialty Start Date End Date Name, MD Ran [address] [place] [address] PCP - General Family Medicine 11/15/18 documented as of this encounter
[2025-01-24 13:01] LABS: HPV Genotype 16 Negative (Negative); HPV Genotype 18 Negative (Negative); HPV High Risk Positive (Negative)
== END 2025-01-19 15:19 | disposition home or self-care (01) ==
LOC: HO.LNP 15:18
PROVIDERS: PCP Internal Medicine Geriatric Medicine; Visit Provider Obstetrics & Gynecology
DX: Z01.419 Encounter for gynecological examination (general) (routine) without abnormal findings (principal)
CPT/HCPCS: 87626; 88175; 99396; 99459

== ENCOUNTER 2025-01-19 15:18 | Outpatient (AMB) | payer MEDICARE, SELFPAY ==
--- NOTE | 2025-01-19 15:29 | A.OFFVIS_ITS ---
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 No complaints. Last Pap/HPV was ascus/HPV positive in 06/06, colpo biopsy ECC was negative Last Mammogram was BI-RADS 1 in 05/07 Last Colonoscopy was done in 01/06, the recommendation was to repeat in 10 years [facility] Medical History (Updated 01/19/25 @ 15:45 by Viet Mario MD) ASCUS with positive high risk HPV cervical Elevated cholesterol Osteoarthritis Migraines Fibromyalgia Diabetes HTN (hypertension) Surgical History (System 02/16/24 @ 11:07 by Renée Morocho) Hx of cholecystectomy History of left oophorectomy Hx of reduction mammoplasty Hx of cervical discectomy Family History Father Colon cancer Mother Breast cancer Social History (System 02/16/24 @ 11:07 by Renée Morocho) Patient Tobacco Use Status: Tobacco use Unknown Patient : No Female Reproductive History Menstrual Age of Menarche: 14 Review of Systems Const All systems reviewed & are unremarkable except as noted in HPI and below Card Reports as per HPI Resp Reports as per HPI GI Reports as per HPI and Reports no additional complaints Reports as per HPI Physical Exam Const General: cooperative, healthy appearing and comfortable Chest Chest palpation & inspection: normal inspection of the chest and normal palpation of entire chest wall Breast/axilla inspection: normal inspection of the breasts and normal inspection of the axillae Breast/axilla palpation: normal palpation of the breasts, normal palpation of the axillae and no axillary lymphadenopathy Resp Effort & Inspection: normal respiratory effort Auscultation: clear to auscultation bilaterally Percussion: percussion normal Cardio Palpation: normal PMI Rate: regular rate Rhythm: regular rhythm Heart sounds: no murmurs and no rubs Peripheral pulses: Peripheral pulses 2+ throughout GI Inspection: Yes normal to inspection Palpation (GI): Soft to palpation, nontender, no guarding, not rigid and No hepatosplenomegaly present Percussion: Yes normal to percussion Auscultation: normal bowel sounds Rectal Exam - Female: deferred General: Yes bladder normal to palpation External Female Exam: No lesion Speculum Exam - Vagina: normal appearance of the vagina, normal palpation, normal vaginal discharge and not erythematous Speculum Exam - Cervix: normal appearance of the cervix and normal palpation Bimanual exam- vagina & uterus: normal bimanual exam, normal palpation, uterine size normal, bladder normal to palpation, consistency normal and normal palpation Bimanual Exam- Adnexa, other: normal adnexae, no masses and no tenderness Assessment & Plan Assessment & Plan (1) Well woman exam: Code(s): Z01.419 - Encounter for gynecological examination (general) (routine) without abnormal findings Category: Medical Plan: Co testing done. Counseled the patient about the recommended dietary allowance of 1200 mg of Calcium & 600 IU of vitamin D. Mammogram ordered. The patient was instructed to perform monthly self-breast exams and schedule annual exam in a year. All questions answered and the patient verbalized understanding. Orders: Orders MM tomosynthesis screening BI Today Z12.31 - Encounter for screening mammogram for malignant neoplasm of breast Coding Level of Care Code Est Pt Prev Care 40-64y(41039) Diagnoses Well woman exam Z01.419
--- OUTSIDE RECORDS SUMMARY | 2025-01-19 16:54 | XMS_ITS | Clinical Summary ---
Author Organization [facility] Address [address] [place] [address] Care Team Providers Care Nutrition Helper Name Role Phone Name, Ran TAVARES Primary Care Provider [phone] Surgical History Surgery Date Site/Laterality Comments NECK SURGERY PROCEDURE: HISTORICAL NECK SURGERY; COMMENT: CS disc herniation OTHER SURGICAL HISTORY PROCEDURE: LAPAROSCOPY PROCEDURE NEC; COMMENT: pelvic for endometriosis OTHER SURGICAL HISTORY PROCEDURE: CT BSO W/OMENTECTOMY SARAH&RAD DEBULKING DISSECTION; COMMENT: right sided COLONOSCOPY 08/24/2011 PROCEDURE: CT COLONOSCOPY FLX DX W/COLLJ SPEC WHEN PFRMD; COMMENT: normal BREAST REDUCTION 2011 Bilateral PROCEDURE: CT BREAST REDUCTION; COMMENT: had repeat surgery Medical History Medical History Date Comments Depression with anxiety DX:Depre ssion with anxiety; COMMENT: seeing a therapist Fibromyalgia DX:Fibromyalgia Family History Medical History Relation Name Comments Diabetes Father Hypertension Father Other: cardiac Father Prostate cancer Father Stroke Father Diabetes Mother Other: hyperlipidemia Mother Breast cancer Other mat aunt Blindness Neg Hx Cataracts Neg Hx Glaucoma Neg Hx Macular degeneration Neg Hx Strabismus Neg Hx Relation Name Status Comments Brother Alive five Father Alive DM, CAD, prosta te CA Mother Alive DM, HTN, high c holesterol Other mat aunt Sister Social History Tobacco Use Types Packs/Day Years Used Date Smoking Tobacco: Never Smokeless Tobacco: Never Alcohol Use Standard Drinks/Week Comments No 0 (1 standard drink = 0.6 oz pur e alcohol) Comments Unknown Sex and Gender Information Value Date Recorded Sex Assigned at Not on file Legal Sex Female 7:32 PM EST Gender Identity Not on file Sexual Orientation Not on file Obstetrics History Plan of Treatment Health Maintenance Due Date Last Done Comments Cervical Cancer Screening: P ap Smear 1983 Pneumococcal Vaccine: 50+ Years (1 of 1 - PCV) 2012 Zoster Vaccines (1 of 2) 2012 Breast Cancer Screening 06/08/2021 06/08/20 19, 06/07/2018, 06/04/2017 Cholesterol Screening (Lipid Panel) 10/17/2022 Colorectal Cancer Screening: Colonoscopy 10/17/2022 Depression Screening 10/17/2022 HIV Screening 10/17/2022 Hepatitis C Screening 10/17/2022 Social Influencers of Health Screening 10/17/2022 DTaP,Tdap,and Td Vaccines (2 - Td or Tdap) 03/21/2023 03/21/2013 COVID-19 Vaccine (1 - 2023-2 5 season) 2024 Influenza Vaccine (#1) 2024 08/22/2009 RSV Immunization Patients 60 + Years Old (1 - 1-dose 75+ series) 2037 HIB Vaccines Aged Out No longer eligi ble based on patient's age to complete this topic HPV Vaccines Aged Out No longer eligi ble based on patient's age to complete this topic Hepatitis A Vaccines Aged Out No long er eligible based on patient's age to complete this topic Hepatitis B Vaccines Aged Out No long er eligible based on patient's age to complete this topic IPV Vaccines Aged Out No longer eligi ble based on patient's age to complete this topic MMR Vaccines Aged Out No longer eligi ble based on patient's age to complete this topic Meningococcal ACWY Vaccine Aged Out N o longer eligible based on patient's age to complete this topic Meningococcal B Vacine Aged Out No lo nger eligible based on patient's age to complete this topic Pneumococcal Vaccine: Pediatrics (0 to 5 Years) and At-Risk Patients (6 to 64 Years) Aged Out No longer eligible b ased on patient's age to complete this topic RSV Immunization Patients Under 20 months Aged Out No longer eligible b ased on patient's age to complete this topic Varicella Vaccines Aged Out No longer eligible based on patient's age to complete this topic Procedures Procedure Name Priority Date/Time Associated Diagnosis Comments SCR MAMMO BI INCL CAD Routine 06/08/2019 3:32 PM EDT Encounter for screening mammogram for malignant neoplasm of breast from Last 3 Months or Most Recently Relevant to Health Maintenance Results * SCR MAMMO BI INCL CAD (06/08/2019 3:32 PM EDT) Anatomical Region Laterality Modality Radiographic Desire ging 06/07/2018 3:16 PM EDT Narrative 06/09/2019 1:54 PM EDT This is a summary report. The complete report is available in the patient's medical record. If you cannot access the medical record, please contact the sending organization for a detailed fax or copy. Full field digital screening mammography, reviewed with CAD and compared to previous. ??The breasts are composed mostly of fatty tissue. Stable appearance of bilateral reduction mammoplasty. No suspicious mass, architectural distortion or suspicious calcifications are identified. IMPRESSION: : No mammographic evidence of malignancy. BIRADS 1-Negative; N. 5 year breast cancer risk assessment 0.9 % Lifetime breast cancer risk assessment 6.2 % Breast cancer risk category Low (<15%) Procedure Note Micaela Marvin - 11/03/2022 This is a summary report. The complete report is available in thepatient's medical record. If you cannot access the medical record, pleasecontact the sending organization for a detailed fax or copy. Full field digital screening mammography, reviewed with CAD and comparedto previous. The breasts are composed mostly of fatty tissue. Stableappearance of bilateral reduction mammoplasty. No suspicious mass,architectural distortion or suspicious calcifications are identified. IMPRESSION: : No mammographic evidence of malignancy. BIRADS 1-Negative; N. 5 year breast cancer risk assessment 0.9 % Lifetime breast cancer risk assessment 6.2 % Breast cancer risk category Low (<15%) Result [facility] Sophy Valdez [facility] IMG XR PROCEDURES Final Result from Last 3 Months or Most Recently Relevant to Health Maintenance Care Teams Nutrition Helper Relationship Specialty Start Date End Date Name, MD Ran [address] [place], [place] PCP - General Internal Medicine 03/04/09
--- OUTSIDE RECORDS SUMMARY | 2025-01-19 16:54 | XMS_ITS | Encounter Summary ---
Author Organization [email or web address] Address [address] [place] [address] Care Team Providers Care Dog Walker Name Role Phone Name, Ran TAVARES Primary Care Provider [phone] Encounter Details Date Type Department Care Team ([facility] st Contact Info) Description 12/26/2024 9:45 AM EST Office Visit [facility] [address] [place] [address] Roxane Farr FNP [address] [place] [address] Cervical spondylosis without myelopathy (Primary Dx); shelter (current) use of opiate analgesic Social History Tobacco Use Types Packs/Day Years Used Date Smoking Tobacco: Never Smokeless Tobacco: Never Alcohol Use Standard Drinks/Week Comments Never 0 (1 standard drink = 0.6 oz pur e alcohol) Depression Answer Date Recorded Patient Health Questionnaire-9 Score 11 11/03/2024 Patient Health Questionnaire-9 Score 11 11/03/2024 Last PHQ-9: Questionnaire Data Not on file 1 01/04/2024 Housing Stability Answer Date Recorded What is your housing situation today? I have guevara nguyễn 10/26/[address] you li ve. Do you have problems with any of the following? None of the above 10/26/2024 Food Insecurity Answer Date Recorded Within the past 12 months, y ou worried that your food would run out before you got money to buy more: Sometimes True 2023 Within the past 12 months,th e food you bought just didn't last and you didn't have enough money to get more: Sometimes True 10/26/2024 Transportation Answer Date Recorded In the past 12 months, has l ack of transportation kept you from medical appts, meetings, work or from getting things needed for daily living? No 10/26/2024 Utilities Answer Date Recorded In the past 12 months, has t he electric, gas, oil or water company threatened to shut off services in your home? No 10/26/2024 Depression Answer Date Recorded Patient Health Questionnaire-2 Score 4 11/03/2024 Internet Access Answer Date Recorded Internet Access Q1 Yes 10/26/2024 Internet Access Q2 Not on file 10/26/2024 Comments Unknown Sex and Gender Information Value Date Recorded Sex Assigned at Female 09/14/2022 10:29 AM EDT Legal Sex Female 10:29 AM EDT Gender Identity Female 09/14/2022 10:29 AM EDT Sexual Orientation Straight 09/14/2022 10 :29 AM EDT documented as of this encounter Progress Notes * Roxane Farr, COMPLAINT INVESTIGATIONS OFFICER - 12/26/2024 9:45 AM EST Subjective: Sophy Turner is a 64 y.o. female w/ PMH hypertension, GERD, T2DM, cervical spondylosis, migraines, anxiety, who presents to the office for - Chronic Pain Clinic Group visits. Initial Group visit: 01/25/24 Group Visit Number: 7 Last PCP visit: 11/03/2024, Name Group Confidentiality Signed: 01/25/24 Group Topic: Triston Watson Chronic Pain History: Associated Diagnosis: cervical radiculitis, fibromyositis Relevant Imaging: Plain Films C spine 09/2023. IMPRESSION: 1. Status post C5-C7 anterior cervical discectomy and spinal fusion with interbody disc spacers. Noevidence of hardware fracture or complication. 2. Loss of the usual cervical spine lordosis. Current pharm tx: Medication: Oxycodone 10mg Q6hr PRN. States taking medication as prescribed. Also prescribed Duloxetine and Gabapentin Non-pharm tx: Following with therapist Related Specialists: none Other substance use: Tobacco: no Marijuana: no Alcohol: no Illicit substances: no Review of Systems Constitutional: Negative for chills and fever. Respiratory: Negative for wheezing. Cardiovascular: Negative for chest pain and palpitations. Gastrointestinal: Negative for diarrhea and vomiting. Musculoskeletal: Positive for arthralgias. Physical Exam Constitutional: Appearance: Normal appearance. Pulmonary: Effort: Pulmonary effort is normal. Neurological: Mental Status: She is alert and oriented to person, place, and time. Psychiatric: Mood and Affect: Mood normal. Behavior: Behavior normal. Problem List Items Addressed This Visit Musculoskeletal Cervical spondylosis without myelopathy - Primary Overview Cervical XR Sep 2023. IMPRESSION: - Status post C5-C7 anterior cervical discectomy and spinal fusion with interbody disc spacers. No evidence of hardware fracture or complication. - Loss of the usual cervical spine lordosis - Moderate multiple level degenerative disc disease with loss of disc space height, facet arthropathy and anterior disc osteophyte complexes. Current Assessment & Plan -Good engagement and participation with Group Medical Visit model -Encouraged multifactorial approach to pain control including pharm and non- pharm modalities -UTOX and Pill count as expected Other shelter (current) use of opiate analgesic Overview Medication: oxycodone 10mg Q6H PRN Indication: cervical radiculitis, fibromyositis Last MEDICAL TECHNICIAN Agreement: 09/26/24 Tier II (visit every 3 months) Relevant Orders POCT SHAY-14 Urine Drug Screen (Completed) Follow up: 1-3 months for Group Chronic Pain Clinic. Follow up as scheduled with PCP, sooner as needed. * Sugey Solorio RN - 12/26/2024 9:45 AM EST .MEDICAL TECHNICIAN automatic winder operator: PDMP reviewed today. Last fill date: 12/03/24 (Oxycodone 10mg qid prn) count was (29), anticipated (18) to be remaining. .UTOX completed. Positive for (OXY), Negative for AMP, BAR, BUP, BZO, DARREL, FTY, MDMA, MET, MOP, MTD, PCP, TCA, THC. UTOX as expected. documented in this encounter Miscellaneous Notes * Assessment & Plan Note - ASHLEY Gautam - 12/28/2024 1:15 PM ESTAssociated Problem(s): Cervical spondylosis without myelopathy -Good engagement and participation with Group Medical Visit model -Encouraged multifactorial approach to pain control including pharm and non- pharm modalities -UTOX and Pill count as expected documented in this encounter Plan of Treatment Upcoming Encounters Date Type Department Care Team (Late st Contact Info) Description 01/23/2025 9:45 AM EDT Office Visit [facility] [address] [place] [phone] 03/12/2025 11:15 AM EDT Office Visit [facility] [address] [place] [phone] Name, MD Ran [address] [place] [phone] documented as of this encounter Procedures Procedure Name Priority Date/Time Associated Diagnosis Comments POCT SHAY-14 URINE DRUG SCREEN Routine 12/26/2024 1:56 PM EST 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
--- OUTSIDE RECORDS SUMMARY | 2025-01-19 16:54 | XMS_ITS | Encounter Summary ---
Author Organization [employer] Address [address] [place] [address] Care Team Providers Care Brokerage Purchase And Sale Clerk Name Role Phone Name, Ran TAVARES Primary Care Provider [phone] Reason for Visit * Reason Onset Date Comments Appointment Request 12/01/2024 Encounter Details Date Type Department Care Team ([facility] st Contact Info) Description 12/01/2024 Telephone [facility] [address] [place], [place] [phone] Name, MD Ran [address] [place], [place] [phone] Appointment Request Social History Tobacco Use Types Packs/Day Years [...] AM EDT documented as of this encounter Miscellaneous Notes * Telephone Encounter - Sunday Hinojosa - 12/01/2024 10:52 AM EST Tc from pt requesting to r/s an appt for pain management. She had to cancel her last appt due to emergency. documented in this encounter Plan of Treatment Upcoming Encounters Date Type Department Care Team (Late st Contact Info) Description 01/23/2025 9:45 AM EDT Office Visit [facility] [address] [place] [phone] 03/12/2025 11:15 AM EDT Office Visit [facility] [address] [place] [phone] Name, MD Ran [address] [place] [address] documented as of this encounter Visit Diagnoses Not on filedocumented in this encounter Additional Health Concerns Assessment Noted Time PHQ-9 Depression Total Score: 11 024 9:57 AM EST documented as of this encounter Care Teams Brokerage Purchase And Sale Clerk Relationship Specialty Start Date End Date Ran Carrasquillo MD [address] [place] [address] PCP - General Family Medicine 11/15/18 documented as of this encounter
--- OUTSIDE RECORDS SUMMARY | 2025-01-19 16:54 | XMS_ITS | Encounter Summary ---
Author Organization [employer] Address [address] [place] [address] Care Team Providers Care Dining Car Waiter/Waitress Name Role Phone Name, Ran TAVARES Primary Care Provider [phone] Encounter Details Date Type Department Care Team ([facility] Contact Info) Description 03/17/2023 Orders Only [facility] [address] [place], [place] [phone] Wandy Clarke LPN Social History Tobacco Use Types Packs/Day Years Used Date Smoking Tobacco: Never Smokeless Tobacco: Never Comments Unknown Sex and Gender Information Value Date Recorded Sex Assigned at Female 09/14/2022 10:29 AM EDT Legal Sex Female 10:29 AM EDT Gender Identity Female 09/14/2022 10:29 AM EDT Sexual Orientation Straight 09/14/2022 10 :29 AM EDT COVID-19 Exposure Response Date Recorded In the last 10 days, have yo u been in contact with someone who was confirmed or suspected to have Coronavirus/COVID-19? No / Unsure 03/04/2023 2:27 PM EDT documented as of this encounter Plan of Treatment Upcoming Encounters Date Type Department Care Team (Late Contact Info) Description 01/23/2025 9:45 AM EDT Office Visit [facility] [address] [place] [address] [phone] 03/12/2025 11:15 AM EDT Office Visit [facility] [address] [place] [address] [phone] Name, MD Ran [address] [place] [phone] documented as of this encounter Visit Diagnoses Not on filedocumented in this encounter Care Teams Dining Car Waiter/Waitress Relationship Specialty Start Date End Date Name, MD Ran [address] [place] [address] PCP - General Family Medicine 11/15/18 documented as of this encounter
--- OUTSIDE RECORDS SUMMARY | 2025-01-19 16:54 | XMS_ITS | Encounter Summary ---
Author Organization [employer] Address [address] [place] [address] Care Team Providers Care Environmental Programs Manager Name Role Phone Name, Ran TAVARES Primary Care Provider [phone] Reason for Visit * Reason Comments Med Refill Encounter Details Date Type Department Care Team ([facility] st Contact Info) Description 02/19/2024 Refill [facility] [address] [place], [place] [phone] Name, MD Ran [address] [place] [address] Social History Tobacco Use Types Packs/Day Years Used Date Smoking Tobacco: Never Smokeless Tobacco: Never Alcohol Use Standard Drinks/Week Comments Never 0 (1 standard drink = 0.6 oz pur e alcohol) Depression Answer Date Recorded Patient Health Questionnaire-9 Score 19 06/28/2023 Housing Stability Answer Date Recorded What is your housing situation today? I have guevara nguyễn 09/13/[address] you li ve. Do you have problems with any of the following? None of the above 09/13/2023 Food Insecurity Answer Date Recorded Within the past 12 months, y ou worried that your food would run out before you got money to buy more: Never True 09/13/2023 Within the past 12 months,th e food you bought just didn't last and you didn't have enough money to get more: Never True Transportation Answer Date Recorded In the past 12 months, has l ack of transportation kept you from medical appts, meetings, work or from getting things needed for daily living? No 09/13/2023 Utilities Answer Date Recorded In the past 12 months, has t he electric, gas, oil or water company threatened to shut off services in your home? No 09/13/2023 Depression Answer Date Recorded Patient Health Questionnaire-2 Score 5 06/28/2023 Comments Unknown Sex and Gender Information Value Date Recorded Sex Assigned at Female 09/14/2022 10:29 AM EDT Legal Sex Female 10:29 AM EDT Gender Identity Female 09/14/2022 10:29 AM EDT Sexual Orientation Straight 09/14/2022 10 :29 AM EDT documented as of this encounter Plan of Treatment Upcoming Encounters Date Type Department Care Team (Late st Contact Info) Description 01/23/2025 9:45 AM EDT Office Visit [facility] [address] [place] [phone] 03/12/2025 11:15 AM EDT Office Visit [facility] [address] [place] [phone] Name, MD Ran [address] [place] [phone] documented as of this encounter Visit Diagnoses Not on filedocumented in this encounter Additional Health Concerns Assessment Noted Time PHQ-9 Depression Total Score: 19 023 4:10 PM EDT documented as of this encounter Care Teams Environmental Programs Manager Relationship Specialty Start Date End Date Name, MD Ran [address] [place] [phone] PCP - General Family Medicine 11/15/18 documented as of this encounter
--- OUTSIDE RECORDS SUMMARY | 2025-01-19 16:54 | XMS_ITS | Encounter Summary ---
Author Organization [email or web address] Address [address] [place] [address] Care Team Providers Care Sock Ironer Name Role Phone Name, Ran TAVARES Primary Care Provider [phone] Reason for Visit * Reason Comments Med Refill Encounter Details Date Type Department Care Team ([facility] st Contact Info) Description 06/22/2024 Refill [facility] [address] [place], [place] [phone] Name, MD Ran [address] [place] [address] Social History Tobacco Use Types Packs/Day Years [...] 01/23/2025 9:45 AM EDT Office Visit [facility] [address] [place] [phone] 03/12/2025 11:15 AM EDT Office Visit [facility] [address] [place] [phone] Name, MD Ran [address] [place] [phone] documented as of this encounter Visit Diagnoses Not on filedocumented in this encounter Additional Health Concerns Assessment Noted Time PHQ-9 Depression Total Score: 19 023 4:10 PM EDT documented as of this encounter Care Teams Sock Ironer Relationship Specialty Start Date End Date Name, MD Ran [address] [place] [address] PCP - General Family Medicine 11/15/18 documented as of this encounter
--- OUTSIDE RECORDS SUMMARY | 2025-01-19 16:54 | XMS_ITS | Encounter Summary ---
Author Organization [employer] Address [address] [place] [address] Care Team Providers Care Panel Lay Up Worker Name Role Phone Name, Ran TAVARES Primary Care Provider [phone] Reason for Visit * Reason Comments Med Refill Encounter Details Date Type Department Care Team ([facility] st Contact Info) Description 03/17/2024 Refill [facility] [address] [place], [place] [phone] Name, MD Ran [address] [place] [address] Social History Tobacco Use Types Packs/Day Years [...] Description 01/23/2025 9:45 AM EDT Office Visit [facility] [address] [place] [address] 03/12/2025 11:15 AM EDT Office Visit [facility] [address] [place] [address] Name, MD Ran [address] [place] [phone] documented as of this encounter Visit Diagnoses Not on filedocumented in this encounter Additional Health Concerns Assessment Noted Time PHQ-9 Depression Total Score: 19 023 4:10 PM EDT documented as of this encounter Care Teams Panel Lay Up Worker Relationship Specialty Start Date End Date Name, MD Ran [address] [place] [address] PCP - General Family Medicine 11/15/18 documented as of this encounter
--- OUTSIDE RECORDS SUMMARY | 2025-01-19 16:54 | XMS_ITS | Encounter Summary ---
Author Organization [employer] Address [address] [facility] [address] 7t [place] [address] Care Team Providers Care Master Chef Name Role Phone Name, Ran TAVARES Primary Care Provider [phone] Reason for Visit * Reason Onset Date Comments Med Refill 12/21/2024 Encounter Details Date Type Department Care Team ([facility] st Contact Info) Description 12/21/2024 Telephone [facility] 230 [place], [place] [phone] Name, MD Ran 230 [place], [place] [phone] Med Refill Social History Tobacco Use Types Packs/Day Years [...] encounter Miscellaneous Notes * Telephone Encounter - Wandy Clarke LPN - 12/21/2024 12:41 PM EST Medication was sent to [facility] #[id number] on 11/03/24 with 11 refills. * Telephone Encounter - Sunday Hinojosa - 12/21/2024 12:08 PM EST TC from pt requesting medication refill. Medications needing refill : Dulaglutide (Trulicity) 1.5 MG/0.5ML solution auto-injector [id number] AT [facility] documented in this encounter Plan of Treatment Upcoming Encounters Date Type Department Care Team ([facility] st Contact Info) Description 01/23/2025 9:45 AM EDT Office Visit [facility] [address] [place] [address] 03/12/2025 11:15 AM EDT Office Visit [facility] [address] [place] [address] Name, MD Ran [address] [place] [address] documented as of this encounter Visit Diagnoses Not on filedocumented in this encounter Additional Health Concerns Assessment Noted Time PHQ-9 Depression Total Score: 11 024 9:57 AM EST documented as of this encounter Care Teams Master Chef Relationship Specialty Start Date End Date Name, MD Ran 230 [place] [address] PCP - General Family Medicine 11/15/18 documented as of this encounter
--- OUTSIDE RECORDS SUMMARY | 2025-01-19 16:54 | XMS_ITS | Encounter Summary ---
Author Organization [employer] Address [address] [facility] [address] [facility] [address] 7t [place] [address] Care Team Providers Care Silk Spreader Name Role Phone Name, Ran TAVARES Primary Care Provider [phone] Reason for Visit * Reason Onset Date Comments Appointment Request 08/24/2024 Encounter Details Date Type Department Care Team ([facility] st Contact Info) Description 08/24/2024 Telephone [facility] 230 [place], [place] [phone] Name, MD Ran 230 [place] [address] Appointment Request Social History Tobacco Use Types [...] encounter Miscellaneous Notes * Telephone Encounter - Flash Villar - 08/24/2024 1:19 PM EDT Tc from pt requesting to reschedule pain management appt. Please contact pt at [phone]. (Upper Sorbian Speaker) documented in this encounter Plan of Treatment Upcoming Encounters Date Type Department Care Team (Late st Contact Info) Description 01/23/2025 9:45 AM EDT Office Visit [facility] [address] [place] [address] 03/12/2025 11:15 AM EDT Office Visit [facility] [address] [place] [address] Name, MD Ran [address] [place] [address] documented as of this encounter Visit Diagnoses Not on filedocumented in this encounter Additional Health Concerns Assessment Noted Time PHQ-9 Depression Total Score: 19 023 4:10 PM EDT documented as of this encounter Care Teams Silk Spreader Relationship Specialty Start Date End Date Name, MD Ran [address] [place] [address] PCP - General Family Medicine 11/15/18 documented as of this encounter
--- OUTSIDE RECORDS SUMMARY | 2025-01-19 16:54 | XMS_ITS | Encounter Summary ---
Author Organization [employer] Address [address] 7t [place] [address] Care Team Providers Care Cvicu Rn Name Role Phone Name, Ran TAVARES Primary Care Provider [phone] Reason for Visit * Reason Comments Med Refill Encounter Details Date Type Department Care Team ([facility] st Contact Info) Description 12/29/2024 Refill [facility] 230 [place], [place] [phone] Name, MD Ran 230 [place] [address] Social History Tobacco Use Types Packs/Day Years [...] Description 01/23/2025 9:45 AM EDT Office Visit [address] [address] 03/12/2025 11:15 AM EDT Office Visit [address] [address] Name, MD Ran [address] [place] [address] documented as of this encounter Visit Diagnoses Not on filedocumented in this encounter Additional Health Concerns Assessment Noted Time PHQ-9 Depression Total Score: 11 024 9:57 AM EST documented as of this encounter Care Teams Cvicu Rn Relationship Specialty Start Date End Date NameRan MD [address] [place] [address] PCP - General Family Medicine 11/15/18 documented as of this encounter
--- OUTSIDE RECORDS SUMMARY | 2025-01-19 16:54 | XMS_ITS | Encounter Summary ---
Author Organization [employer] Address [address] [facility] [address] 7t [place] [address] Care Team Providers Care Design Agent Name Role Phone Name, Ran TAVARES Primary Care Provider [phone] Reason for Visit * Reason Onset Date Comments Med Refill 12/29/2024 Encounter Details Date Type Department Care Team (Late st Contact Info) Description 12/29/2024 Refill [facility] 230 [place], [place] [phone] Name, MD Ran 230 [place] [address] Cervical spondylosis without myelopathy Social History Tobacco Use Types Packs/Day Years [...] encounter Miscellaneous Notes * Telephone Encounter - Rosette Milton - 12/29/2024 11:17 AM EST TC from pt requesting medication refill. Medications needing refill : oxyCODONE (Roxicodone) 10 MG immediate release tablet To be sent to: [facility] #[id number] - [address] AT [facility] documented in this encounter Plan of Treatment Upcoming Encounters Date Type Department Care Team ([facility] st Contact Info) Description 01/23/2025 9:45 AM EDT Office Visit [facility] [address] [place] [address] 03/12/2025 11:15 AM EDT Office Visit [facility] [address] [place] [address] NameRan MD [address] [place] [address] documented as of this encounter Visit Diagnoses Diagnosis Cervical spondylosis without myelopathy documented in this encounter Additional Health Concerns Assessment Noted Time PHQ-9 Depression Total Score: 11 024 9:57 AM EST documented as of this encounter Care Teams Design Agent Relationship Specialty Start Date End Date NameRan MD 230 [place] [address] PCP - General Family Medicine 11/15/18 documented as of this encounter
--- OUTSIDE RECORDS SUMMARY | 2025-01-19 16:54 | XMS_ITS | Encounter Summary ---
Author Organization [employer] Address [address] [facility] [address] 7t [place] [address] Care Team Providers Care Flash Welder Name Role Phone Name, Ran TAVARES Primary Care Provider [phone] Reason for Visit * Reason Onset Date Comments Med Refill 06/01/2024 Encounter Details Date Type Department Care Team ([facility] st Contact Info) Description 06/01/2024 Telephone [facility] 230 [place], [place] [phone] Name, MD Ran 230 [place], [place] [phone] Med Refill Social History Tobacco Use Types [...] encounter Miscellaneous Notes * Telephone Encounter - Jojo Brand RN - 06/01/2024 1:38 PM EDT Mass pat checked on 06/01/2024, last time oxycodone 10 mg immediate release tablet rx. Filled at [facility] [place], for qty - 112 for 28 days supply. Meds. [facility] for approval. * Telephone Encounter - Aure Ferreira - 06/01/2024 1:20 PM EDT TC from pt requesting medication refill. Medications needing refill : oxyCODONE (Roxicodone) 10 MG immediate release tablet To be sent to: [facility] #[id number] - [address] [facility] documented in this encounter Plan of Treatment Upcoming Encounters Date Type Department Care Team ([facility] st Contact Info) Description 01/23/2025 9:45 AM EDT Office Visit [facility] [address] [place] [address] [phone] 03/12/2025 11:15 AM EDT Office Visit [facility] [address] [place] [address] Name, MD Ran [address] [place] [address] documented as of this encounter Visit Diagnoses Not on filedocumented in this encounter Additional Health Concerns Assessment Noted Time PHQ-9 Depression Total Score: 19 023 4:10 PM EDT documented as of this encounter Care Teams Flash Welder Relationship Specialty Start Date End Date Name, MD Ran 230 [place] [address] PCP - General Family Medicine 11/15/18 documented as of this encounter
--- OUTSIDE RECORDS SUMMARY | 2025-01-19 16:54 | XMS_ITS | Encounter Summary ---
Author Organization [employer] Address [address] [facility] [facility] [facility] [address] 7t [place] [address] Care Team Providers Care Engine Monitor Name Role Phone Name, Ran TAVARES Primary Care Provider [phone] Reason for Visit * Reason Onset Date Comments appt change 01/21/2023 Encounter Details Date Type Department Care Team ([facility] Contact Info) Description 01/21/2023 Telephone [facility] 230 [place], [place] [phone] Name, MD Ran 230 [place] [address] appt change Social History Tobacco Use Types Packs/Day Years [...] suspected to have Coronavirus/COVID-19? No / Unsure 01/20/2023 2:58 PM EST documented as of this encounter Miscellaneous Notes * Telephone Encounter - Lizz Rockwell - 01/21/2023 2:18 PM EST Tc from pt requesting to change derm appt on the 02/12/23 to a later time . documented in this encounter Plan of Treatment Upcoming Encounters Date Type Department Care Team ([facility] Contact Info) Description 01/23/2025 9:45 AM EDT Office Visit [facility] [address] [place] [address] 03/12/2025 11:15 AM EDT Office Visit [facility] [address] [place] [address] Name, MD Ran [address] [place] [address] documented as of this encounter Visit Diagnoses Not on filedocumented in this encounter Care Teams Engine Monitor Relationship Specialty Start Date End Date Name, MD Ran [address] [place] [address] PCP - General Family Medicine 11/15/18 documented as of this encounter
--- OUTSIDE RECORDS SUMMARY | 2025-01-19 16:54 | XMS_ITS | Encounter Summary ---
Author Organization [employer] Address [address] 7t [place] [address] Care Team Providers Care Precision Grinder Name Role Phone Name, Ran TAVARES Primary Care Provider [phone] Encounter Details Date Type Department Care Team (Latest Contact Info) Description 12/26/2024 Travel Social History Tobacco Use Types Packs/Day Years [...] Description 01/23/2025 9:45 AM EDT Office Visit [facility] [address] [place] [address] 03/12/2025 11:15 AM EDT Office Visit [address] [address] NameRan MD [address] [place] [address] documented as of this encounter Visit Diagnoses Not on filedocumented in this encounter Additional Health Concerns Assessment Noted Time PHQ-9 Depression Total Score: 11 024 9:57 AM EST documented as of this encounter Care Teams Precision Grinder Relationship Specialty Start Date End Date NameRan MD [address] [place] [address] PCP - General Family Medicine 11/15/18 documented as of this encounter
--- OUTSIDE RECORDS SUMMARY | 2025-01-19 16:54 | XMS_ITS | Encounter Summary ---
Author Organization [employer] Address [address] [facility] [address] 7t [place] [address] Care Team Providers Care Beam Doffer Name Role Phone Name, Ran TAVARES Primary Care Provider [phone] Reason for Visit * Reason Comments Med Refill Encounter Details Date Type Department Care Team ([facility] st Contact Info) Description 01/15/[address] [facility] 230 [place], [place] [phone] Name, MD Ran 230 [place] [address] Seasonal allergic rhinitis, unspecified trigger Social History Tobacco Use Types Packs/Day Years [...] Description 01/23/2025 9:45 AM EDT Office Visit [address] [address] 03/12/2025 11:15 AM EDT Office Visit [address] [address] NameRan MD [address] [place] [address] documented as of this encounter Visit Diagnoses Diagnosis Seasonal allergic rhinitis, unspecified trigger documented in this encounter Additional Health Concerns Assessment Noted Time PHQ-9 Depression Total Score: 11 024 9:57 AM EST documented as of this encounter Care Teams Beam Doffer Relationship Specialty Start Date End Date Name, MD Ran [address] [place] [address] PCP - General Family Medicine 11/15/18 documented as of this encounter
--- OUTSIDE RECORDS SUMMARY | 2025-01-19 16:54 | XMS_ITS | Encounter Summary ---
Author Organization [employer] Address [address] [facility] [address] 7t [place] [address] Care Team Providers Care Sail Maker Name Role Phone Name, Ran TAVARES Primary Care Provider [phone] Reason for Visit * Reason Comments Med Refill Encounter Details Date Type Department Care Team (Late st Contact Info) Description 12/01/2022 Refill [facility] [address] [place] [address] [phone] NameRan MD [address] [place] [address] [phone] Type 2 diabetes mellitus without complication, unspecified whether shelter insulin use ([facility]) Social History Tobacco Use Types Packs/Day Years Used Date Smoking Tobacco: Never Assessed Comments Unknown Sex and Gender Information Value [...] 01/23/2025 9:45 AM EDT Office Visit [facility] [address] [place] [address] [phone] 03/12/2025 11:15 AM EDT Office Visit [facility] [address] [place] [address] [phone] NameRan MD [address] [place] [address] [phone] documented as of this encounter Visit Diagnoses Diagnosis Type 2 diabetes mellitus without complication, unspecified whether long term care administrator insulin use ([facility]) documented in this encounter Care Teams Sail Maker Relationship Specialty Start Date End Date Name, MD Ran 230 [place] [address] PCP - General Family Medicine 11/15/18 documented as of this encounter
--- OUTSIDE RECORDS SUMMARY | 2025-01-19 16:54 | XMS_ITS | Encounter Summary ---
Author Organization [employer] Address [address] [facility] [address] 7t [place] [address] Care Team Providers Care Glazing Superintendent Name Role Phone Name, Ran TAVARES Primary Care Provider [phone] Reason for Visit * Reason Onset Date Comments Appointment Request 02/10/2023 Encounter Details Date Type Department Care Team ([facility] st Contact Info) Description 02/10/2023 Telephone [facility] [address] [place] [address] [phone] Name, MD Ran 230 [place], [place] [phone] Appointment Request Social History Tobacco Use Types [...] encounter Miscellaneous Notes * Telephone Encounter - Lexii Car - 02/15/2023 11:39 AM EDT Tc from pt requesting a call back to r/s Derm New appt Seborrheic Keratoses . Pt stated previouslyr/s and due to lack of transportation pt needs to r/s once again. Please contact pt at [phone]. PCP Dr[address] Name * Telephone Encounter - Michelle Ghosh - 02/10/2023 11:50 AM EDT Tc from pt requesting to r/s appt for DERM NEW on 02/12/2023 Please contact pt at [phone] English Speaker documented in this encounter Plan of Treatment Upcoming Encounters Date Type Department Care Team (Late st Contact Info) Description 01/23/2025 9:45 AM EDT Office Visit [address] [address] 03/12/2025 11:15 AM EDT Office Visit [address] [address] Name, MD Ran [address] [place] [address] documented as of this encounter Visit Diagnoses Not on filedocumented in this encounter Care Teams Glazing Superintendent Relationship Specialty Start Date End Date Name, MD Ran [address] [place] [address] PCP - General Family Medicine 11/15/18 documented as of this encounter
--- OUTSIDE RECORDS SUMMARY | 2025-01-19 16:54 | XMS_ITS | Encounter Summary ---
Author Organization [employer] Address [address] [facility] [address] [facility] [address] 7t [place] [address] Care Team Providers Care Rheologist Name Role Phone Name, Ran TAVARES Primary Care Provider [phone] Reason for Visit * Reason Comments Med Refill Encounter Details Date Type Department Care Team ([facility] st Contact Info) Description 11/12/2023 Refill [facility] 230 [place], [place] [phone] Name, MD Ran 230 [place] [address] Seasonal allergic rhinitis, unspecified trigger Social History [...] Description 01/23/2025 9:45 AM EDT Office Visit [facility] [address] [place] [address] 03/12/2025 11:15 AM EDT Office Visit [address] [address] NameRan MD [address] [place] [address] documented as of this encounter Visit Diagnoses Diagnosis Seasonal allergic rhinitis, unspecified trigger documented in this encounter Additional Health Concerns Assessment Noted Time PHQ-9 Depression Total Score: 19 023 4:10 PM EDT documented as of this encounter Care Teams Rheologist Relationship Specialty Start Date End Date NameRan MD [address] [place] [address] PCP - General Family Medicine 11/15/18 documented as of this encounter
--- OUTSIDE RECORDS SUMMARY | 2025-01-19 16:54 | XMS_ITS | Encounter Summary ---
Author Organization [employer] Address [address] [facility] [address] 7t [place] [address] Care Team Providers Care Shift Commander Name Role Phone Name, Ran TAVARES Primary Care Provider [phone] Reason for Visit * Reason Comments Med Refill Encounter Details Date Type Department Care Team ([facility] st Contact Info) Description 10/06/2023 Refill [facility] 230 [place], [place] [phone] [facility] 230 [place], [place] [phone] Social History Tobacco Use Types Packs/Day Years [...] the past 12 months, has t he [employer], oil or water company threatened to shut [...] 01/23/2025 9:45 AM EDT Office Visit [facility] [address] [place] [address] 03/12/2025 11:15 AM EDT Office Visit [facility] [address] [place] [address] NameRan MD [address] [place] [address] documented as of this encounter Visit Diagnoses Not on filedocumented in this encounter Additional Health Concerns Assessment Noted Time PHQ-9 Depression Total Score: 19 023 4:10 PM EDT documented as of this encounter Care Teams Shift Commander Relationship Specialty Start Date End Date NameRan MD [address] [place] [address] PCP - General Family Medicine 11/15/18 documented as of this encounter
--- OUTSIDE RECORDS SUMMARY | 2025-01-19 16:54 | XMS_ITS | Encounter Summary ---
Author Organization [employer] Address [address] [facility] [address] 7t [place] [address] Care Team Providers Care Fire Investigator Name Role Phone Name, Ran TAVARES Primary Care Provider [phone] Reason for Visit * Reason Comments Med Refill Encounter Details Date Type Department Care Team ([facility] st Contact Info) Description 11/03/2023 Refill [facility] 230 [place], [place] [phone] Name, MD Ran 230 [place] [address] Essential hypertension Social History Tobacco Use Types Packs/Day Years [...] the past 12 months, has t he [employer], oil or water company threatened to shut [...] Description 01/23/2025 9:45 AM EDT Office Visit [facility] [address] [place] [address] 03/12/2025 11:15 AM EDT Office Visit [facility] [address] [place] [address] NameRan MD [address] [place] [address] documented as of this encounter Visit Diagnoses Diagnosis Essential hypertension Unspecified essential hypertension documented in this encounter Additional Health Concerns Assessment Noted Time PHQ-9 Depression Total Score: 19 023 4:10 PM EDT documented as of this encounter Care Teams Fire Investigator Relationship Specialty Start Date End Date NameRan MD [address] [place] [address] PCP - General Family Medicine 11/15/18 documented as of this encounter
--- OUTSIDE RECORDS SUMMARY | 2025-01-19 16:54 | XMS_ITS | Encounter Summary ---
Author Organization [employer] Address [address] [facility] [address] 7t [place] [address] Care Team Providers Care Manufacturing Millwright Name Role Phone Name, Ran TAVARES Primary Care Provider Reason for Visit * Reason Onset Date Comments Prior Authorization 12/21/2024 Encounter Details Date Type Department Care Team (Late st Contact Info) Description 12/21/2024 Telephone [facility] 230 [place], [place] [phone] Name, MD Ran 230 [place] [address] Prior Authorization Social History Tobacco Use Types Packs/Day Years [...] encounter Miscellaneous Notes * Telephone Encounter - Mariajose Williamson - 01/16/2025 2:54 PM EST PA initiated on [employer] for Trulicity . Approval/denial pending. * Telephone Encounter - Sunday Hinojosa - 12/21/2024 12:10 PM EST Tc from pt requesting a PA for Dulaglutide (Trulicity) 1.5 MG/0.5ML solution auto-injector. documented in this encounter Plan of Treatment Upcoming Encounters Date Type Department Care Team (Late st Contact Info) Description 01/23/2025 9:45 AM EDT Office Visit [facility] [address] [place] [address] 03/12/2025 11:15 AM EDT Office Visit [facility] [address] [place] [address] Name, MD Ran [address] [place] [address] documented as of this encounter Visit Diagnoses Not on filedocumented in this encounter Additional Health Concerns Assessment Noted Time PHQ-9 Depression Total Score: 11 024 9:57 AM EST documented as of this encounter Care Teams Manufacturing Millwright Relationship Specialty Start Date End Date Name, MD Ran 230 [place] [address] PCP - General Family Medicine 11/15/18 documented as of this encounter
--- OUTSIDE RECORDS SUMMARY | 2025-01-19 16:54 | XMS_ITS | Encounter Summary ---
Author Organization [employer] Address [address] [facility] [place] [address] Care Team Providers Care [employer] Name Role Phone Name, Ran TAVARES Primary Care Provider [phone] Reason for Visit * Reason Comments Med Refill Encounter Details Date Type Department Care Team ([facility] st Contact Info) Description 01/16/2025 Refill [facility] MEDICINE [address] [place], [place] [phone] Name, MD Ran [address] [place] [address] Seasonal allergic rhinitis, unspecified trigger Social History [...] Telephone Encounter - Wandy Clarke LPN - 01/16/2025 10:06 AM EST Last seen 11/03/24. documented in this encounter Plan of Treatment Upcoming Encounters Date Type Department Care Team (Late st Contact Info) Description 01/23/2025 9:45 AM EDT Office Visit [facility] MEDICINE [address] [place] [phone] 03/12/2025 11:15 AM EDT Office Visit [address] [address] Name, MD Ran [address] [place] [phone] documented as of this encounter Visit Diagnoses Diagnosis Seasonal allergic rhinitis, unspecified trigger documented in this encounter Additional Health Concerns Assessment Noted Time PHQ-9 Depression Total Score: 11 024 9:57 AM EST documented as of this encounter Care Teams [employer] Relationship Specialty Start Date End Date NameRan MD [address] [place] [phone] PCP - General Family Medicine 11/15/18 documented as of this encounter
--- OUTSIDE RECORDS SUMMARY | 2025-01-19 16:54 | XMS_ITS | Encounter Summary ---
Author Organization [employer] Address [address] [place] [address] Care Team Providers Care Share[employer] Name Role Phone Name, aRn TAVARES Primary Care Provider [phone] Reason for Visit * Reason Onset Date Comments Error (VOID this visit) 12/26/2024 Encounter Details Date Type Department Care Team (Late st Contact Info) Description 12/26/2024 Refill [facility] MEDICINE [address] [place], [place] [phone] Jania Oliveira RN Social History Tobacco Use Types Packs/Day Years [...] 01/23/2025 9:45 AM EDT Office Visit [facility] MEDICINE [address] [place] [phone] 03/12/2025 11:15 AM EDT Office Visit [address] [address] Name, MD Ran [address] [place] [phone] documented as of this encounter Visit Diagnoses Not on filedocumented in this encounter Additional Health Concerns Assessment Noted Time PHQ-9 Depression Total Score: 11 024 9:57 AM EST documented as of this encounter Care Teams Sharepoint Engineer Relationship Specialty Start Date End Date NameRan MD [address] [place] [phone] PCP - General Family Medicine 11/15/18 documented as of this encounter
--- OUTSIDE RECORDS SUMMARY | 2025-01-19 16:55 | XMS_ITS | Clinical Summary ---
Author Organization [email or web address] Address [address] [facility] [address] [place] [address] Care Team Providers Care Systems Checkout Mechanic Name Role Phone Name, Ran TVAARES Primary Care Provider [phone] Allergies Active Allergy Reactions Criticality Noted Date Comments Octacosanol 11/19/2021 Other reaction(s): Unknown Other reaction(s): Unknown Other 03/21/2009 Pollen,dust. Medications * This document contains information received from the source organization and may not represent a complete record from that organization. fluticasone (Flonase) 50 MCG/ACT nasal sprayIndications: Seasonal allergic rhinitis, unspecified trigger Administer 1-2 sprays into each nostril in the morning. Shake gently. Before first use, prime pump. After use, clean tip and replace cap. 16 g 2 023 Active SUMAtriptan (Imitrex) 50 MG tablet TAKE 1 TABLET BY MOUTH AT ONSET OF MIGRAINE. MAY REPEAT AFTER 2 HOURS. IF HEADACHE RETURNS. NOT TO EXCEED 200 MG IN 24 HOURS 10 tablet 3 023 Active DULoxetine (Cymbalta) [address] capsule Take 1 capsule (30 mg) by mouth 2 times daily. Do not crush or chew. 60 capsule 11 024 2024 Active gabapentin (Neurontin) 600 MG tablet Take 1 tablet (600 mg) by mouth 2 times daily. 60 tablet 3 024 Active atorvastatin (Lipitor) 20 MG tablet Take 1 tablet (20 mg) by mouth in the morning. 30 tablet 11 024 2024 Active FREESTYLE LITE test strip 1Use to test blood sugar 1 times daily 100 each 12 024 2024 Active Blood Glucose Monitoring Suppl (FreeStyle [place] Lite) w/Device kit Use to test blood sugar 1 times daily 1 kit Active Alcohol Swabs (Alcohol Prep) 70 % pads USE TO TEST BLOOD SUGAR 1 TIME EVERY DAY 100 each 5 Active FreeStyle lancetsIndication s:Diabetic polyneuropathy associated with type 2 diabetes mellitus (CMS/HCC) USE TO TEST BLOOD SUGAR DAILY 100 each Active polyethylene glycol, PEG, 3350 (Glycolax) 17 GM/SCOOP powder MIX 17 GMS IN 8 OZ OF LIQUID AND DRINK EVERY DAY 238 g 3 Active lisinopril 10 MG tabletIndications :Essential hypertension Take 1 tablet (10 mg) by mouth Once per day. 30 tablet 024 2024 Active amitriptyline (Elavil) 10 MG tablet TAKE 1 TABLET(10 MG) BY MOUTH AT BEDTIME 30 tablet Active Dulaglutide (Trulicity) 1.5 MG/0.5ML solution auto-injectorIndi cations:Type 2 diabetes mellitus without complication, without long-term current use of insulin ([facility]),Chest tightness Inject 0.5 mL (1.5 mg) under the skin 1 (one) time per week. 2 mL 024 2024 Active oxyCODONE (Roxicodone) 10 MG immediate release tabletIndications :Cervical spondylosis without myelopathy Take 1 tablet (10 mg) by mouth every 6 (six) hours if needed for severe pain for up to 28 days. Do not start before December 31, 2024. 112 tablet 025 2024 Active albuterol 108 (90 Base) MCG/ACT inhaler INHALE 2 PUFFS BY MOUTH EVERY 4 TO 6 HOURS NEEDED 8.5 g 3 Active loratadine (Claritin) 10 MG tabletIndications :Seasonal allergic rhinitis, unspecified trigger TAKE 1 TABLET BY MOUTH EVERY MORNING 90 tablet 1 025 Active loratadine (Claritin) 10 MG tabletIndications :Seasonal allergic rhinitis, unspecified trigger TAKE 1 TABLET BY MOUTH EVERY AM 90 tablet 1 024 2024 Discontinued albuterol 108 (90 Base) MCG/ACT inhaler INHALE 2 PUFFS BY MOUTH EVERY 4 TO 6 HOURS NEEDED 8.5 g 3 024 2024 Discontinued oxyCODONE (Roxicodone) 10 MG immediate release tabletIndications :Cervical spondylosis without myelopathy Take 1 tablet (10 mg) by mouth every 6 (six) hours if needed for severe pain for up to 28 days. 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 09/15 Overview (12/28/2024): Medication: oxycodone 10mg Q6H PRN Indication: cervical radiculitis, fibromyositis Last [employer]SET [employer]ATE [employer]ER Agreement: 09/26/24 Tier II (visit every 3 months) Diabetic polyneuropathy asso ciated with type 2 diabetes mellitus 03/28/2024 Colon cancer screening 09/21/2023 3 Epigastric pain 06/24/2023 Gastro-esophageal reflux disease without esophag itis 06/24/2023 Essential hypertension 01/20/2023 Insomnia 03/21/2019 Blood in urine 10/27/2017 Strain of neck muscle 09/08/2017 Type 2 diabetes mellitus without complication Cervical spondylosis without myelopathy 12/13/19 16 Overview (12/28/2024): Cervical XR Sep 2023. IMPRESSION: - Status post C5-C7 anterior cervical discectomy and spinal fusion with interbody disc spacers. No evidence of hardware fracture or complication. - Loss of the usual cervical spine lordosis - Moderate multiple level degenerative disc disease with loss of disc space height, facet arthropathy and anterior disc osteophyte complexes. Assessment & Plan (12/28/2024 1:15 PM EST): -Good engagement and participation with Group Medical Visit model -Encouraged multifactorial approach to pain control including pharm and non- pharm modalities -UTOX and Pill count as expected Assessment & Plan (01/26/2024 8:49 AM EDT): Pt attended and participated in group today - urine tox and pill count as expected - followup in one month for theme Tell My Story Fibromyositis 12/13/2015 Seasonal allergic rhinitis 12/13/2015 History of cholecystectomy 08/10/2014 Hyperlipidemia with target LDL less than 130 02/2012 Overview (06/24/2023): IMO update Migraine 10/29/2011 External hemorrhoids 10/29/2011 Constipation 07/15/2011 Lumbago 12/29/2010 Radiculitis, cervical 12/04/2010 Chondromalacia of patella 08/06/2010 Overview (06/24/2023): IMO update Seasonal allergies 04/26/2009 Chronic neck pain 03/21/2009 Overview (07/25/2024): Chronic pain that radiated to the left arm. She had MRI in the past with C5 disc herniation. Patient was operated by Dr. Thompson in 2006 but the pain persists. Patient was also seen by Dr. Kerr and had another MRI of the neck in 10/2008. She was recommended to choose between a surgery or to continue on narcotics. She opted to continue chronic narcotics. The patient is currently disabled. Assessment & Plan (09/28/2024 1:39 PM EST): -Good engagement and participation with Group Medical Visit model -Encouraged multifactorial approach to pain control including pharm and non- pharm modalities -Pill count as expected, U tox positive for benzo, urine not sent out inadvertently -will call patient in to give urine sample in the next 1-4 weeks Assessment & Plan (07/25/2024 2:52 PM EDT): -Good engagement and participation with Group Medical Visit model -Encouraged multifactorial approach to pain control including pharm and non- pharm modalities -UTOX and Pill count as expected Assessment & Plan (05/23/2024 3:26 PM EDT): -Good engagement and participation with Group Medical Visit model -Encouraged multifactorial approach to pain control including pharm and non- pharm modalities -UTOX and Pill count as expected Assessment & Plan (03/28/2024 2:46 PM EDT): Patient participated in chronic pain group making salve Pill count and urine toxicology as expected. Can lengthen those screenings to q 2-3 months F/u for next month as desired Assessment & Plan (02/22/2024 1:50 PM EDT): Patient participated in chronic pain group Pill count and utox as expected. F/u for next month as desired ALCON (generalized anxiety disorder) 03/21/2009 Assessment & Plan (06/28/2023 4:25 PM EDT): Assessment: Patient with headaches, anxiousness, tension, crying spells, anhedonia, chest tight, irritability, persistent worry, insomnia, forgetfulness and low self-esteem. Factors contributing to her symptoms are, Hx of trauma in childhood, Hx of multiple SI attempts from 14 y/o until her 28 y/o. Chronic health issues. Patient will benefit from Ind. Therapy and Medication management. At this time Sophy FlahertyRolan meets criteria for Visit Diagnoses: Problem List Items Addressed This Visit Other LACON (generalized anxiety disorder) Recurrent major depressive disorder, in remission (CMS/[facility]) Patient ready to address current needs Yes Strengths include willing to seek treatment. PLAN: 1. Follow up with [facility]: Not recommended for follow-up 2. Patient goal is to engage in OP services. 3. Behavioral Recommendations a. Ind. Therapy, referral will be placed b. Medication Management, referral will be placed. c. Use of coping skills provided Current moderate episode of major depressive dis order 03/21/2009 Overview (06/24/2023): Patient is follows at [facility]. She is prescribed antidepressant and Seroquel Resolved Problems Problem Noted Date Diagnosed Date Resolved Date Chronic hoarseness 10/22/2022 Prediabetes 09/23/2016 01/20/2023 Secondary hypertension 02/03/201601/20 Abnormal mammogram 12/13/2015 4 Heartburn 08/10/2014 02/15/2024 Hyperglycemia 08/18/2012 02/15/2024 Abnormal brain MRI 03/10/2011 3 Encounters Date Type Department Care Team Description 01/16/2025 Refill [facility] [address] [facility] [place] [address] Ran Carrasquillo MD Seasonal allergic rhinitis, unspecified trigger 01/15/2025 Refill [facility] [address] [facility] [place] [address] Ran Carrasquillo MD Seasonal allergic rhinitis, unspecified trigger 12/29/2024 Refill [facility] [address] [place] [address] Ran Carrasquillo MD Cervical spondylosis without myelopathy 12/29/2024 Refill [facility] [address] [place] [phone] Ran Carrasquillo MD 12/26/2024 9:45 AM EST Office Visit [facility] [address] [facility] [place] [address] Roxane Farr, TAIL BOARD MAN Cervical spondylosis without myelopathy (Primary Dx); 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 12/26/2024 Refill [facility] [place] [address] Jania Oliveira, RN 12/26/2024 Travel 12/21/2024 Telephone [facility] [address] [place] [phone] Ran Carrasquillo MD Prior Authorization 12/21/2024 Telephone [facility] [address] [place] [phone] Ran Carrasquillo MD Med Refill 12/01/2024 Telephone [facility] [address] [place] [phone] Ran Carrasquillo MD Med Refill 12/01/2024 Telephone [facility] [address] [place] [phone] Ran Carrasquillo MD Appointment Request 12/01/2024 Refill [facility] [address] [place] [phone] Ran Carrasquillo MD Cervical spondylosis without myelopathy 11/10/2024 1:45 PM EST Office Visit [facility] [address] [place] [address] Michaelle Olsen, STUART Type 2 diabetes mellitus without complication, without long-term current use of insulin (CMS/HCC) (Primary Dx); Macular scar of right eye; Hypermetropia, bilateral 11/10/2024 Travel 11/03/2024 10:00 AM EST Office Visit [facility] [address] [place] [address] Ran Carrasquillo MD Type 2 diabetes mellitus without complication, without long-term current use of insulin (CMS/HCC) (Primary Dx); Chest tightness 10/26/2024 Patient Outreach [facility] [address] [place] [address] Ran Carrasquillo MD Care Coordination (CHW outreach for SDOH food needs - LVM ) 10/26/2024 Patient Outreach [facility] [address] [place] [address] Ran Carrasquillo MD Pre-visit Planning (SDOH Screening positive and Tobacco screening negative) 10/26/2024 Refill [facility] [address] [place] [address] Ran Carrasquillo MD Cervical spondylosis without myelopathy from Last 3 Months Immunizations Name Administration Dates Next Due Influenza, IIV3, injectable 08/22/2009 Moderna Covid-19 Vaccine 12+ 05/06/2021,04/22/20 21,03/25/2021 TD (adult), 2 Lf tetanus tox oid, preservative free, adsorbed 03/21/2013 Td (adult) 03/21/2013 Tdap 10/19/2016 Social History Tobacco Use Types Packs/Day Years Used Date Smoking Tobacco: Never Smokeless Tobacco: Never Tobacco Cessation:Counseling Given: Not Answered Alcohol Use Standard Drinks/Week Comments Never 0 (1 standard drink = 0.6 oz pur e alcohol) Depression Answer Date Recorded Patient Health Questionnaire-9 Score 11 11/03/2024 Patient Health Questionnaire-9 Score 11 11/03/2024 Last PHQ-9: Questionnaire Data Not on file 1 01/04/2024 Housing Stability Answer Date Recorded What is your housing situation today? I have guevara sing 10/26/[address] you li [...] Orientation Straight 09/14/2022 10 :29 AM EDT Last Filed Vital Signs Vital Sign Reading Time Taken Comments Blood Pressure 130/82 11/03/2024 9:55 AM EST Pulse 90 11/03/2024 9:55 AM EST Temperature 37.1 ??C (98.7 ??F) 11/03/2024 9:55 AM ES T Respiratory Rate 16 11/03/2024 9:55 AM EST Oxygen Saturation 98% 11/03/2024 9:55 AM EST Inhaled Oxygen Concentration - - Weight 60.1 kg (132 lb 9.6 oz) 11/03/2024 9:55 A M EST Height 157.5 cm (5' 2 ) 11/03/2024 9:55 AM EST Body Mass Index 24.25 11/03/2024 9:55 AM EST Plan of Treatment Upcoming Encounters Date Type Department Care Team (Late st Contact Info) Description 01/23/2025 9:45 AM EDT Office Visit [facility] [address] [facility] [place] [address] 03/12/2025 11:15 AM EDT Office Visit [facility] [address] [facility] [place] [address] Name, [place] [address] Health Maintenance Due Date Last Done Comments CT Colonography 1962 FIT DNA/Cologuard 1962 FIT 1962 FOBT 1962 HIV Screening 1962 Sigmoidoscopy 1962 Hepatitis C Screening 1980 Pneumococcal Vaccine: 50+ Years (1 of 2 - PCV) 1981 Zoster Vaccines (1 of 2) 2012 Cervical Cancer Screening 05/27/2024 Pap Smear 05/27/2024 07/15/2022, 07/15/2022 COVID-19 Vaccine ( season) 2024 05/06/2021, 04/22/2021, 03/25/2021 Influenza Vaccine (#1) 2024 08/22/2009 Diabetes: Hemoglobin A1C 01/25/2025 024, 09/21/2023, 06/29/2023, Additional history exists Mammogram 04/23/2025 05/14/2023, 04/22/2023 Depression Monitoring (PHQ-9) 05/04/2025 11/03/2024, 11/03/2024 Diabetes: Urine Protein Screening 07/25/2025 07/25/2024, 08/25/2023, 10/16/2020 Lipid Panel 07/25/2025 07/25/2024, 08/15, 10/16/2020 Diabetes: Foot Exam 07/28/2025 07/28/2024, 07/28/2024, 07/28/2024, Additional history exists SDOH Screening 10/26/2025 10/26/2024 Alcohol/Substance Use Screening 11/03/2025 11/03/2024 Depression Screening 11/03/2025 11/03/2024, 11/03/20 24 Tobacco Screening 11/10/2025 11/10/2024 DTaP/Tdap/Td Vaccines (2 - Td or Tdap) 10/19/2026 10/19/2016, 03/21/2013, 03/21/2013 Eye Exam 11/10/2026 11/10/2024, 10/16, 11/10/2024, Additional history exists HPV/Cotest 07/15/2027 07/15/2022 Colonoscopy 01/12/2032 01/12/2022, 12/30/2021 Colorectal Cancer Screening 01/12/2032 RSV Patients and Patients Aged 60 years or older (1 - 1-dose 75+ series) 2037 HIB [...] patient's age to complete this topic Meningococcal Vaccine Aged Out No paty shiloh eligible based on patient's age to complete this topic RSV under 20 months Aged Out No longe r eligible based on patient's age to complete this topic Rotavirus Vaccines Aged Out No longer eligible based on patient's age to complete this topic Procedures Procedure Name Priority Date/Time Associated Diagnosis Comments POCT SHAY-14 URINE DRUG SCREEN Routine 12/26/2024 1:56 PM EST snf (current) use of opiate analgesic ECG 12-LEAD Routine 11/03/2024 10:40 AM EST Chest tightness POCT GLUCOSE Routine 11/03/2024 9:58 AM EST Type 2 diabetes mellitus without complication, without long-term current use of insulin ([facility]/HCC) POCT GLYCATED HEMOGLOBIN, TOTAL Routine 07/28/2024 10:01 AM EDT Type 2 diabetes mellitus without complication, without long-term current use of insulin ([facility]/HCC) ALBUMIN, RANDOM URINE W/CREATININE Routine 07/25/2024 11:47 AM EDT Type 2 diabetes mellitus without complication, without long-term current use of insulin ([facility]) LIPID PANEL, STANDARD Routine 07/25/2024 11:30 AM EDT Type 2 diabetes mellitus without complication, without long-term current use of insulin ([facility]/HCC) Cervical dystonia Chronic neck pain MAMMOGRAPHY Routine 05/14/2023 4:05 PM EDT THINPREP IMAGING PAP AND HPV MRNA E6/E7, WITH CT/NG, TRICHOMONAS Routine 07/15/2022 1:59 PM EDT PAP/HPV Routine 07/15/2022 12:00 AM EDT COLONOSCOPY Routine 01/12/2022 3:24 PM EST from Last 3 Months or Most Recently Relevant to Health Maintenance Results * POCT SHAY-14 Urine Drug Screen (12/26/2024 1:56 PM EST) Oxycodone Screen, Urine Positive Urine Urine specimen obtained by clean catch procedure / Unknown 12/26/2024 1:56 PM EST Narrative Sugey Solorio RN - 12/26/2024 1:56 PM EST .UTOX cup Lot#[id number] Exp. 08/09/26 Internal Pass Control Roxane Farr TAIL BOARD MAN POINT OF CARE TEST ENTER/EDIT ORDERABLES Final Result * ECG 12 lead (11/03/2024 10:40 AM EST) Narrative Name, MD Ran - 11/03/2024 10:40 AM EST Normal sinus rhythm, heart rate of 77, no ST segment elevation or depression. ??No evidence of ischemia. Ran Carrasquillo MD ECG ORDERABLES Final Result * POCT Glucose (11/03/2024 9:58 AM EST) Glucose Blood, POC 188 60 - 200 mg/dL QC Media Lot # [id number] Lot# Expiration Date Blood Capillary blood specimen / Unknown 11/03/2024 9:58 AM EST us Ran Carrasquillo MD POINT OF CARE TEST ENTER/EDIT OR DERABLES Final Result * (ABNORMAL) POCT HGB A1C (07/28/2024 10:01 AM EDT) Hemoglobin A1C 6.1(A) 4.0 - 6.0 % QC Media Lot # [id number] Lot# Expiration Date Blood 07/28/2024 10:0 1 AM EDT us Ran Carrasquillo MD POINT OF CARE TEST ENTER/EDIT OR DERABLES Final Result * Albumin, Random Urine W/Creatinine (07/25/2024 11:47 AM EDT) Creatinine, Urine 123.17 mg/dL [facility] Microalbumin Urine 13.0 mg/L [facility] Microalbum Creatinine Ratio Ur 10.5 <30 ug/mg cr [facility] Comment:Albumin/Creatinine R atio Reference Ranges: Normal: < 30 ug/mg creatinine Microalbuminuria: 30 - 300 ug/mg creatinineClinical Albuminuria: > 300 ug/mg creatinine Urine (Urine, Random) 07/25/2024 11:47 AM EDT 07/25/2024 1:03 PM EDT us Ran Carrasquillo MD LAB URINE ORDERABLES Final Resul t [facility] [address] [place] [phone] * (ABNORMAL) Lipid Panel, Standard (07/25/2024 11:30 AM EDT) Triglycerides 259(H) <150 mg/dL [facility] Comment:Desirable Triglyceri de: less than 150 mg/dLBorderline High Triglyceride 150-199 mg/dLHigh Triglyceride: 200-499 mg/dLVery High Triglyceride: greater than or equal to 5OO mg/dL Cholesterol 224(H) <200 mg/dL [facility] Comment:Desirable Cholestero l: less than 200 mg/dLBorderline High Cholesterol: 200-239 mg/dLHigh Cholesterol: greater than 239 mg/dL LDL Cholesterol Calculated 128(H) <100 mg/dL [facility] Comment:Desirable LDL: less than 100 mg/dLNear Optimal/Above Optimal LDL: 110- 129 mg/dLBorderline High LDL: 130-159 mg/dLHigh LDL: 160-189 mg/dLVery High LDL: greater than or equal to 190 mg/dL HDL Cholesterol 45 >40 mg/dL [facility] Comment:Desirable HDL: great er than 40 mg/dL Note: This HDL assay may give artificially low results in patients with liver disease. Blood Venous blood specimen / Unknown 07/25/2024 11:30 AM EDT 07/25/2024 1:15 PM EDT us Ran Carrasquillo MD LAB BLOOD ORDERABLES Final Resul t [facility] [address] [place] [phone] * Mammography (05/14/2023 4:05 PM EDT) Mammogram BI-RADS 1: Negative Anatomical Region Laterality Modality Other us Ran Carrasquillo MD HEALTH MAINTENANCE Final Result * (ABNORMAL) THINPREP TIS PAP AND HPV mRNA E6/E7, CT/NG, TRICH (07/15/2022 1:59 PM EDT) Chlamydia trachomatis RNA, TMA, Urogenital NOT DETECTED NOT DETECTED [facility] Clinical Information: MENOPAUSAL [facility] COMMENT SEE COMMENT [facility] Comment: The analytical performance characteristics of this assay, when used to test SurePath(TM) specimens have been determined by [employer]. The modifications have not been cleared or approved by the FDA. This assay has been validated pursuant to the CLIA regulations and is used for clinical purposes. ?? For additional information, please refer to https://[employer].CRMnext/faq/GYU138 (This link is being provided for information/ educational purposes only.) ?? COMMENT SEE COMMENT [facility] Comment: EXPLANATORY NOTE: ? The Pap is a screening test for cervical cancer. It is ?? not a diagnostic test and is subject to false negative ?? and false positive results. It is most reliable when a ?? satisfactory sample, regularly obtained, is submitted ?? with relevant clinical findings and history, and when ?? the Pap result is evaluated along with historic and ?? current clinical information. ?? COMMENT: This Pap test has been evaluated with computer assisted technology. [facility] Popcorn Attendant: SEE COMMENT [facility] Comment: GSG, CT(ASCP) CT screening location: [address] ??[id number] General Categorization: EPITHELIAL CELL ABNORMALITY(A) [facility] HPV nRNA E6/E7 Detected(A) Not Detected [facility] Comment: Methodology: Furnace Packer-Mediated Amplification This assay detects E6/E7 viral messenger RNA (mRNA) from 14 high-risk HPV types (16,18,31,33,35,39,45,51,52,56,58,59,66,68). ? Cervical sources are required for HPV testing. If a vaginal source from a patient who has had a total hysterectomy with removal of cervix was ?? submitted, please contact the testing laboratory for alternative testing options. ?? For additional information, please refer to http://[employer].CRMnext/faq/LCH100k8 (This link if provided for information/ educational purposes only.) Interpretation/Res ult: Atypical Squamous Cells of Undetermined Significance (ASC-US)(A) [facility] LMP: NONE GIVEN [facility] Neisseria gonorrhoeae RNA, TMA, Urogenital NOT DETECTED NOT DETECTED [facility] PATHOLOGIST: SEE COMMENT [facility] Comment: Akilah Morocho D.O. Board Certified in Anatomic, Clinical and Cytopathology (electronic signature) Prev. BX: NONE GIVEN [facility] Prev. PAP: PAP NIL NEG 2013 [facility] SOURCE: None given [facility] Statement Of Adequacy: SEE COMMENT [facility] Comment: Satisfactory for evaluation. Endocervical/transformation zone component present. Trichomonas vaginalis, QL, TMA, PAP Vial NOT DETECTED NOT DETECTED [facility] Comment: The analytical performance characteristics of this assay have been determined by [employer]. The modifications have not been cleared or approved by the FDA. This assay has been validated pursuant to the CLIA regulations and is used for clinical purposes. ?? For additional information, please refer to http://education.CRMnext/ faq/Trichomonastma (This link is being provided for information/ educational purposes only.) ?? 07/15/2022 1:59 PM EDT Thais Jim CNM LAB PATHOLOGY ORDERABLES Final Result [facility] [address] [place] [address], * Pap Smear (07/15/2022 12:00 AM EDT) Narrative Meghan Ramirez RN - 07/15/2022 12:00 AM EDT ASCUS HPV+ pap, referred for Colposcopy Thais Jim CNM HEALTH MAINTENANCE Edited Result - Final * Colonoscopy (01/12/2022 3:24 PM EST) Colonoscopy Normal Normal Narrative Magalis Layton - 01/12/2022 3:24 PM EST Recommended 10 year follow up Historical Provider HEALTH MAINTENANCE Final Result from Last 3 Months or Most Recently Relevant to Health Maintenance Insurance [employer] STANDARD [facility] [place] [phone] [facility] PPO Care Teams Systems Checkout Mechanic Relationship Specialty Start Date End Date Name, MD Ran [address] [place] [address] PCP - General Family Medicine 11/15/18
--- OUTSIDE RECORDS SUMMARY | 2025-01-19 16:55 | XMS_ITS | Encounter Summary ---
Author Organization [employer] Address [address] 7[address] [place] [address] Care Team Providers Care Finishing Area Operator Name Role Phone Name, Ran TAVARES Primary Care Provider [phone] Encounter Details Date Type Department Care Team (Late Contact Info) Description 04/26/[address] [address] Ran Carrasquillo MD [address] [place] [address] Social History Tobacco Use Types Packs/Day Years [...] Description 01/23/2025 9:45 AM EDT Office Visit [address] [address] 03/12/2025 11:15 AM EDT Office Visit [address] [phone] Ran Carrasquillo MD [address] [place] [address] documented as of this encounter Procedures Procedure Name Priority Date/Time Associated Diagnosis Comments HM COLONOSCOPY Routine 01/12/2022 3:24 PM EST documented in this encounter Results * Hm Colonoscopy (01/12/2022 3:24 PM EST) Colonoscopy Normal Normal Narrative Magalis Layton - 01/12/2022 3:24 PM EST Recommended 10 year follow up us Historical Provider HEALTH MAINTENANCE Final Result documented in this encounter Visit Diagnoses Not on filedocumented in this encounter Care Teams Finishing Area Operator Relationship Specialty Start Date End Date Name, MD Ran [address] [place] [address] PCP - General Family Medicine 11/15/18 documented as of this encounter
--- OUTSIDE RECORDS SUMMARY | 2025-01-19 16:55 | XMS_ITS | Patient Health Record ---
Author Organization [facility] Address [address] [place] [address] Care Team Providers Care Tape Fastener Machine Operator Name Role Phone Name Ran TAVARES Primary Care Provider Yonatan Ross Jr Unavailable [phone] Allergies Allergen (clinical drug ingredient) Drug/Non Drug Allergy documented on EMR Reaction Allergy Type Onset Date Status Seasonal IC Unknown Drug Allergy Activ e Reason For Referral No Information Medications Medication SIG (Take, Route, Frequency, Duration) Notes Start Date End Date Status Metoprolol Tartrate 50 MG 1 tablet with food Orally Twice a day for 30 day(s) Active oxyCODONE HCl 10 MG 1 tablet as needed Orally every 6 hrs Active Nasacort Allergy 24HR 55 MCG/ACT 1 spray in each nostril Nasally Once a day for 30 day(s) Active metFORMIN HCl 500 MG 1 tablet with a perla l Orally Once a day for 30 day(s) Active Polyethylene Glycol 1450 - as directed Active Cetirizine HCl 10 MG 1 tablet Orally Onc e a day for 30 day(s) Active Amitriptyline HCl 25 MG 1 tablet at bedt mary Orally Once a day for 30 day(s) Active Pantoprazole Sodium 40 MG 1 tablet Orall y Once a day for 30 day(s) Active Aspirin 81 81 MG 1 tablet Orally Once a day for 30 day(s) Active Albuterol Sulfate 108 (90 Base) MCG/ACT 1 puff as needed Inhalation every 4 hrs Active Imitrex 50 MG 1 tablet at least 2 hours between doses as needed Orally Twice a day Active DULoxetine HCl 60 MG 1 capsule Orally On ce a day for 30 day(s) Active Nystatin 112410 UNIT/ML 4 ml Mouth/Throa t Four times a day for 30 day(s) Active One Touch Delica Lancets - as directed Active Lisinopril 5 MG 1 tablet Orally Once a day for 30 day(s) Active Colace 100 MG 1 capsule as needed Orally Once a day for 30 day(s) Active Cyclobenzaprine HCl 5 MG 1 tablet at bed time as needed Orally Once a day for 30 day(s) Active Atorvastatin Calcium 20 MG 1 tablet Oral ly Once a day Active Immunizations Vaccine Route Administration Date Status Comme nts Influenza Unknown 11/19/2021 Refused Social History Tobacco Use: Social History Observation Description Date Details (start date - stop date) Never Smoker NA - NA Tobacco Use/Smoking Question Answer Notes Patient is a nonsmoker Alcohol Screen Question Answer Notes Did you have a drink containing alcohol in the p ast year? No Points 0 Interpretation Negative Problems Problem Type SNOMED Code ICD Code Onset Dates Problem Status W/U Status Risk Notes Problem 784335875 Colon cancer screening (Z12.11) Active confirmed Problem 06798604 Epigastric pain (R10.13) Active confirmed Problem Esophageal reflux finding (644918564) Gastroesophageal reflux (K21.9) Active confirmed Problem 252525614 Gastroesophageal reflux disease, unspecified whether esophagitis present (K21.9) Active confirmed Plan Of Treatment Future Test Test Name Order Date UPPER GI ENDOSCOPY 11/19/2021 Insurance Providers Payer Name Payer Address Payer Phone Subscriber Number Group Number Insured Name Patient Relationship to Insured Coverage Start Date Coverage End Date [facility] Medicare Advantage Plan [address] [address] [place] [address] [phone] [id number] LESLEY SANTA Self - patient is the insured MEDICAID OF [facility] [address] [place] [address] [id number] LESLEY SANTA Self - patient is the insured MED[place]ARE OF [place] [address] [place] [address] [id number] LESLEY SANTA Self - patient is the insured Medical (General) History Medical History History ICD Code diabetes high blood pressure Endometriosis Fibromyalgia Migraine headaches Osteoarthritis Elevated cholesterol Surgical History Surgery Date(Month/Year) Reduction mammoplasty Left oophorectomy for benign disease, en dometriosis Cervical disc surgery, with decompression, bone graft, and plate placement, C4-C7 in Cholecystectomy
== END 2025-01-19 15:53 | disposition home or self-care (01) ==
LOC: HO.HWS 15:18
PROVIDERS: PCP Internal Medicine Geriatric Medicine; Visit Provider Obstetrics & Gynecology
DX: Z01.419 Encounter for gynecological examination (general) (routine) without abnormal findings (principal)
CPT/HCPCS: 99396; 99459

== ENCOUNTER 2025-03-06 14:27 | Outpatient (REF) | payer MEDICARE, SELFPAY ==
--- OUTSIDE RECORDS SUMMARY | 2025-03-06 17:18 | XMS_ITS | Encounter Summary ---
Author Organization [facility] Address [address] [place] [address] Care Team Providers Care Distillery Miller Name Role Phone Name, Ran TAVARES Primary Care Provider Unavailabl e Name, Ran TAVARES Primary Care Provider Unavailabl e Encounter Details Date Type Department Care Team Description 06/05/2011 Shoe Shanker Report Medical Records [address] [place] [address] Jeffrey Gao i Social History Tobacco Use Types Packs/Day Years Used Date Smoking Tobacco: Never Smokeless Tobacco: Never Alcohol Use Standard Drinks/Week Comments No 0 (1 standard drink = 0.6 oz pur e alcohol) Sex Assigned at Date Recorded Not on file documented as of this encounter Plan of Treatment Not on file documented as of this encounter Visit Diagnoses Not on filedocumented in this encounter Care Teams Distillery Miller Relationship Specialty Start Date End Date Ran Carrasquillo MD PCP - General 03/04/09 12/30/15 Ran Carrasquillo MD PCP - General Internal Medicine 12/31/15 documented as of this encounter
--- OUTSIDE RECORDS SUMMARY | 2025-03-06 17:18 | XMS_ITS | Encounter Summary ---
Author Organization [employer] Address [address] [facility] [address] 7t [place] [address] Care Team Providers Care Maintenance Technician Name Role Phone Name, Ran TAVARES Primary Care Provider [phone] Encounter Details Date Type Department Care Team (Late Contact Info) Description 04/26/[address] [phone] Ran Carrasquillo MD [address] [place] [address] [phone] Social History Tobacco Use Types Packs/Day Years [...] Care Team (Late st Contact Info) Description 03/12/2025 11:15 AM EDT Office Visit [address] [phone] NameRan MD [address] [place] [address] [phone] 03/27/2025 9:45 AM EDT Office Visit [address] [phone] documented as of this encounter Procedures Procedure [...] on filedocumented in this encounter Care Teams Maintenance Technician Relationship Specialty Start Date End Date Name, MD Ran 230 [place] [address] PCP - General Family Medicine 11/15/18 documented as of this encounter
--- OUTSIDE RECORDS SUMMARY | 2025-03-06 17:18 | XMS_ITS | Encounter Summary ---
Author Organization [employer] Address [address] [facility] [address] 7t [place] [address] Care Team Providers Care Dry Cleaning Machine Operator Name Role Phone Name, Ran TAVARES Primary Care Provider [phone] Reason for Visit * Reason Comments Med Refill Encounter Details Date Type Department Care Team ([facility] st Contact Info) Description 01/15/2025 Refill [facility] 230 [place], [place] [phone] Name, MD Ran 230 [place] [address] Seasonal allergic rhinitis, unspecified trigger Social History [...] Description 03/12/2025 11:15 AM EDT Office Visit [address] [address] NameRan MD [address] [place] [address] 03/27/2025 9:45 AM EDT Office Visit [address] [address] documented as of this encounter Visit Diagnoses Diagnosis Seasonal allergic rhinitis, unspecified trigger documented in this encounter Additional Health Concerns Assessment Noted Time PHQ-9 Depression Total Score: 11 024 9:57 AM EST documented as of this encounter Care Teams Dry Cleaning Machine Operator Relationship Specialty Start Date End Date Ran Carrasquillo MD [address] [place] [address] PCP - General Family Medicine 11/15/18 documented as of this encounter
--- OUTSIDE RECORDS SUMMARY | 2025-03-06 17:18 | XMS_ITS | Clinical Summary ---
Author Organization [facility] Address [address] [place] [address] Care Team Providers Care Air Reduction Equipment Operator Name Role Phone Name, Ran TAVARES Primary Care Provider [phone] Surgical History Surgery Date Site/Laterality Comments NECK SURGERY PROCEDURE: HISTORICAL NECK SURGERY; COMMENT: CS disc herniation OTHER SURGICAL HISTORY PROCEDURE: LAPAROSCOPY PROCEDURE NEC; COMMENT: pelvic for endometriosis OTHER SURGICAL HISTORY PROCEDURE: IL BSO W/OMENTECTOMY SARAH&RAD DEBULKING DISSECTION; COMMENT: right sided COLONOSCOPY 08/24/2011 PROCEDURE: IL COLONOSCOPY FLX DX W/COLLJ SPEC WHEN PFRMD; COMMENT: normal BREAST REDUCTION 2011 Bilateral PROCEDURE: IL BREAST REDUCTION; COMMENT: had repeat surgery Medical [...] - 2023-2 5 season) 2024 Influenza Vaccine (Season Ended) 2025 08/22/2009 RSV Immunization Adult Patients (1 - 1-dose 75+ series) 2037 HIB [...] age to complete this topic Meningococcal B Vaccine Aged Out No l onger eligible based on patient's age to complete [...] % Breast cancer risk category Low (<15%) Sophy ESPINO IMG XR PROCEDURES Final Result from Last 3 Months or Most Recently Relevant to Health Maintenance Care Teams Air Reduction Equipment Operator Relationship Specialty Start Date End Date Name, MD Ran [address] [place], [place] PCP - General Internal Medicine 03/04/09
--- OUTSIDE RECORDS SUMMARY | 2025-03-06 17:18 | XMS_ITS | Encounter Summary ---
Author Organization [facility] Address [address] [facility] [place] [address] Care Team Providers Care Real Estate Office Manager Name Role Phone Name, Ran TAVARES Primary Care Provider Unavailabl e Name, Ran TAVARES Primary Care Provider Unavailabl e Encounter Details Date Type Department Care Team Description 06/11/2015 Business Doc Medical Records [address] [place] [address] Abstract, Provider Social History Tobacco Use Types Packs/Day Years [...] on filedocumented in this encounter Care Teams Real Estate Office Manager Relationship Specialty Start Date End Date Ran Carrasquillo MD PCP - General 03/04/09 12/30/15 Ran Carrasquillo MD PCP - General Internal Medicine 12/31/15 documented as of this encounter
--- OUTSIDE RECORDS SUMMARY | 2025-03-06 17:18 | XMS_ITS | Patient Health Record ---
Author Organization [facility] Address [address] [place] [address] Care Team Providers Care Soccer Ball Assembler Name Role Phone Name Ran TAVARES Primary Care Provider Yonatan Ross Jr Unavailable [phone] Allergies Allergen (clinical drug ingredient) Drug/Non Drug [...] a day for 30 day(s) Active Nystatin 138204 UNIT/ML 4 ml Mouth/Throa t Four times [...] Problem Status W/U Status Risk Notes Problem 702022877 Colon cancer screening (Z12.11) Active confirmed Problem 98202616 Epigastric pain (R10.13) Active confirmed Problem Esophageal reflux finding (407611272) Gastroesophageal reflux (K21.9) Active confirmed Problem 571072160 Gastroesophageal reflux disease, unspecified whether esophagitis present (K21.9) Active confirmed Plan Of Treatment Future Test Test Name Order Date UPPER GI ENDOSCOPY 11/19/2021 Insurance Providers Payer Name Payer Address Payer Phone Subscriber Number Group Number Insured Name Patient Relationship to Insured Coverage Start Date Coverage End Date [facility] Medicare Advantage Plan [address] [address] [place] [address] [id number] LESLEY SANTA Self - patient is the insured MEDICAID OF [facility] [address] [place] [address] [id number] LESLEY SANTA Self - patient is the insured [place] [address] [place] [address] [id number] LESLEY SANTA Self - patient is the insured Medical (General) History Medical History History ICD Code diabetes high blood pressure Endometriosis Fibromyalgia Migraine headaches Osteoarthritis Elevated cholesterol Surgical History Surgery Date(Month/Year) Reduction mammoplasty Left oophorectomy for benign disease, en dometriosis Cervical disc surgery, with decompression, bone graft, and plate placement, C4-C7 in Cholecystectomy
--- OUTSIDE RECORDS SUMMARY | 2025-03-06 17:18 | XMS_ITS | Encounter Summary ---
Author Organization [employer] Address [address] [facility] [address] 7t [place] [address] Care Team Providers Care Heating Mechanic Name Role Phone Name, Ran TAVARES Primary Care Provider [phone] Reason for Visit * Reason Comments Med Refill Encounter Details Date Type Department Care Team ([facility] st Contact Info) Description 02/19/2024 Refill [facility] 230 [place], [place] [phone] Name, MD Ran 230 [place] [address] Social History Tobacco Use Types Packs/Day Years [...] Description 03/12/2025 11:15 AM EDT Office Visit [facility] [address] [place] [address] Name, MD Ran [address] [place] [address] 03/27/2025 9:45 AM EDT Office Visit [address] [address] documented as of this encounter Visit Diagnoses Not on filedocumented in this encounter Additional Health Concerns Assessment Noted Time PHQ-9 Depression Total Score: 19 023 4:10 PM EDT documented as of this encounter Care Teams Heating Mechanic Relationship Specialty Start Date End Date Name, MD Ran [address] [place] [address] PCP - General Family Medicine 11/15/18 documented as of this encounter
--- OUTSIDE RECORDS SUMMARY | 2025-03-06 17:18 | XMS_ITS | Encounter Summary ---
Author Organization [facility] Address [address] [place] [address] Care Team Providers Care Meter Reading Clerk Name Role Phone Name, Ran TAVARES Primary Care Provider Unavailabl e Name, Ran TAVARES Primary Care Provider Unavailabl e Reason for Visit * Reason Onset Date Comments APPOINTMENT 08/07/2011 Encounter Details Date Type Department Care Team Description 08/07/2011 Telephone General Surgery [address] [place] [address] Riaz Vu MD APPOINTMENT Social History Tobacco Use Types Packs/Day Years Used Date Smoking Tobacco: Never Smokeless Tobacco: Never Alcohol Use Standard Drinks/Week Comments No 0 (1 standard drink = 0.6 oz pur e alcohol) Sex Assigned at Date Recorded Not on file documented as of this encounter Miscellaneous Notes * Telephone Encounter - Leslie oDnato M.A. - 08/12/2011 8:12 AM EDT Please schedule patient at 10:30 on 08/17/2011 * Telephone Encounter - Laury Hernandez - 08/07/2011 2:51 PM EDT Patient was booked with Dr. Holden in error. She now has next available appointment with Dr. Welsh 09-03-11. Please book patient earlier if possible. documented in this encounter Plan of Treatment Not on file documented as of this encounter Visit Diagnoses Not on filedocumented in this encounter Care Teams Meter Reading Clerk Relationship Specialty Start Date End Date Foreign, MD Ran PCP - General 03/04/09 12/30/15 Ran Carrasquillo MD PCP - General Internal Medicine 12/31/15 documented as of this encounter
--- OUTSIDE RECORDS SUMMARY | 2025-03-06 17:18 | XMS_ITS | Encounter Summary ---
Author Organization [facility] Address [address] [place] [address] Care Team Providers Care Technical Assistance Consultant Name Role Phone Ran Carrasquillo MD Primary Care Provider Unavailabl e Encounter Details Date Type Department Care Team Description 05/26/2022 Orders Only Radiology - [address] [address] NameRan MD Social History Tobacco Use Types Packs/Day Years [...] on filedocumented in this encounter Care Teams Technical Assistance Consultant Relationship Specialty Start Date End Date Ran Carrasquillo MD PCP - General Internal Medicine 12/31/15 documented as of this encounter
--- OUTSIDE RECORDS SUMMARY | 2025-03-06 17:18 | XMS_ITS | Encounter Summary ---
Author Organization [employer] Address [address] [facility] [address] 7t [place] [address] Care Team Providers Care Benzene Operator Name Role Phone Name, Ran TAVARES Primary Care Provider [phone] Reason for Visit * Reason Comments Med Refill Encounter Details Date Type Department Care Team ([facility] st Contact Info) Description 12/29/2024 Refill [facility]INE 230 [place], [place] [phone] Name, MD Ran 230 [place] [address] Social History Tobacco Use Types Packs/Day Years [...] Description 03/12/2025 11:15 AM EDT Office Visit [address] [address] Name, MD Ran [address] [place] [address] 03/27/2025 9:45 AM EDT Office Visit [address] [address] documented as of this encounter Visit Diagnoses Not on filedocumented in this encounter Additional Health Concerns Assessment Noted Time PHQ-9 Depression Total Score: 11 024 9:57 AM EST documented as of this encounter Care Teams Benzene Operator Relationship Specialty Start Date End Date Name, MD Ran [address] [place] [address] PCP - General Family Medicine 11/15/18 documented as of this encounter
--- OUTSIDE RECORDS SUMMARY | 2025-03-06 17:18 | XMS_ITS | Encounter Summary ---
Author Organization [employer] Address [address] [facility] [address] 7t [place] [address] Care Team Providers Care Electrical Calibrator Name Role Phone Name, Ran TAVARES Primary Care Provider [phone] Reason for Visit * Reason Comments Med Refill Encounter Details Date Type Department Care Team (Late st Contact Info) Description 12/01/2022 Refill [facility] MEDICINE [address] [place] [address] [phone] NameRan MD [address] [place] [address] [phone] Type 2 diabetes mellitus without complication, unspecified whether base draw operator insulin use ([facility]) Social History Tobacco Use Types Packs/Day Years [...] Description 03/12/2025 11:15 AM EDT Office Visit [facility] MEDICINE [address] [place] [address] [phone] NameRan MD [address] [place] [address] [phone] 03/27/2025 9:45 AM EDT Office Visit [facility] MEDICINE [address] [place] [address] [phone] documented as of this encounter Visit Diagnoses Diagnosis Type 2 diabetes mellitus without complication, unspecified whether assisted insulin use ([facility]) documented in this encounter Care Teams Electrical Calibrator Relationship Specialty Start Date End Date Name, MD Ran [address] [place] [address] PCP - General Family Medicine 11/15/18 documented as of this encounter
--- OUTSIDE RECORDS SUMMARY | 2025-03-06 17:18 | XMS_ITS | Encounter Summary ---
Author Organization [facility] Address [address] [facility] [place] [address] Care Team Providers Care Custom Feed Corn Operator Name Role Phone Name, Ran TAVARES Primary Care Provider Unavailabl e Name, Ran TAVARES Primary Care Provider Unavailabl e Encounter Details Date Type Department Care Team Description 01/29/2011 Controlled Substance Plan Medical Records [address] [place] [address] Abstract, Provider Social History Tobacco Use Types [...] on filedocumented in this encounter Care Teams Custom Feed Corn Operator Relationship Specialty Start Date End Date Ran Carrasquillo MD PCP - General 03/04/09 12/30/15 Ran Carrasquillo MD PCP - General Internal Medicine 12/31/15 documented as of this encounter
--- OUTSIDE RECORDS SUMMARY | 2025-03-06 17:18 | XMS_ITS | Encounter Summary ---
Author Organization [employer] Address [address] 7[address] [place] [address] Care Team Providers Care Marine Meteorologist Name Role Phone Name, Ran TAVARES Primary Care Provider [phone] Reason for Visit * Reason Onset Date Comments Appointment Request 08/24/2024 Encounter Details Date Type Department Care Team ([facility] st Contact Info) Description 08/24/2024 Telephone [facility] [address] [place], [place] [phone] Name, MD Ran 230 [place] [address] Appointment Request Social History Tobacco Use Types [...] pain management appt. Please contact pt at [phone]. (Luxembourgish Speaker) documented in this encounter Plan of Treatment Upcoming Encounters Date Type Department Care Team (Late st Contact Info) Description 03/12/2025 11:15 AM EDT Office Visit [facility] [address] [place] [address] Name, MD Ran [address] [place] [address] 03/27/2025 9:45 AM EDT Office Visit [address] [address] documented as of this encounter Visit Diagnoses Not on filedocumented in this encounter Additional Health Concerns Assessment Noted Time PHQ-9 Depression Total Score: 19 023 4:10 PM EDT documented as of this encounter Care Teams Marine Meteorologist Relationship Specialty Start Date End Date Name, MD Ran [address] [place] [address] PCP - General Family Medicine 11/15/18 documented as of this encounter
--- OUTSIDE RECORDS SUMMARY | 2025-03-06 17:18 | XMS_ITS | Encounter Summary ---
Author Organization [employer] Address [address] [facility] [address] 7t [place] [address] Care Team Providers Care Molder Machine Name Role Phone Name, Ran TAVARES Primary Care Provider [phone] Reason for Visit * Reason Comments Med Refill Encounter Details Date Type Department Care Team ([facility] st Contact Info) Description 10/06/2023 Refill [facility] MED[facility]INE 230 [place], [place] [phone] [facility] 230 [place], [place] [phone] Social History Tobacco Use Types Packs/Day Years [...] the past 12 months, has t he [employer], [employer], oil or water company threatened to shut [...] Description 03/12/2025 11:15 AM EDT Office Visit [facility] MED[facility]INE [address] [place] [address] Name, MD Ran [address] [place] [address] 03/27/2025 9:45 AM EDT Office Visit [address] [address] documented as of this encounter Visit Diagnoses Not on filedocumented in this encounter Additional Health Concerns Assessment Noted Time PHQ-9 Depression Total Score: 19 023 4:10 PM EDT documented as of this encounter Care Teams Molder Machine Relationship Specialty Start Date End Date Name, MD Ran [address] [place] [address] PCP - General Family Medicine 11/15/18 documented as of this encounter
--- OUTSIDE RECORDS SUMMARY | 2025-03-06 17:18 | XMS_ITS | Encounter Summary ---
Author Organization [employer] Address [address] [facility] [address] 7t [place] [address] Care Team Providers Care Leak Gang Supervisor Name Role Phone Name, Ran TAVARES Primary Care Provider [phone] Reason for Visit * Reason Comments Med Refill Encounter Details Date Type Department Care Team ([facility] st Contact Info) Description 03/17/2024 Refill [facility] 230 [place], [place] [phone] Name, MD Ran 230 [place] [address] Social History Tobacco Use Types Packs/Day Years [...] Description 03/12/2025 11:15 AM EDT Office Visit [facility] [address] [place] [address] Name, MD Ran [address] [place] [address] 03/27/2025 9:45 AM EDT Office Visit [address] [address] documented as of this encounter Visit Diagnoses Not on filedocumented in this encounter Additional Health Concerns Assessment Noted Time PHQ-9 Depression Total Score: 19 023 4:10 PM EDT documented as of this encounter Care Teams Leak Gang Supervisor Relationship Specialty Start Date End Date Name, MD Ran [address] [place] [address] PCP - General Family Medicine 11/15/18 documented as of this encounter
--- OUTSIDE RECORDS SUMMARY | 2025-03-06 17:18 | XMS_ITS | Encounter Summary ---
Author Organization [facility] Address [address] [place] [address] Care Team Providers Care Manager Of Planning Name Role Phone Name, Ran TAVARES Primary Care Provider Unavailabl e Name, Ran TAVARES Primary Care Provider Unavailabl e Encounter Details Date Type Department Care Team Description 12/13/2015 Release of Information Medical Records [address] [place] [address] Abstract, Provider Social History Tobacco Use Types [...] on filedocumented in this encounter Care Teams Manager Of Planning Relationship Specialty Start Date End Date Ran Carrasquillo MD PCP - General 03/04/09 12/30/15 Ran Carrasquillo MD PCP - General Internal Medicine 12/31/15 documented as of this encounter
--- OUTSIDE RECORDS SUMMARY | 2025-03-06 17:18 | XMS_ITS | Encounter Summary ---
Author Organization [facility] Address [address] [facility] [place] [address] Care Team Providers Care Advisory Services Associate Name Role Phone Name, Ran TAVARES Primary Care Provider Unavailabl e Encounter Details Date Type Department Care Team Description 12/01/2017 Business Doc Medical Records [address] [place] [address] Abstract, Provider Social History Tobacco Use Types [...] on filedocumented in this encounter Care Teams Advisory Services Associate Relationship Specialty Start Date End Date Name, MD Ran PCP - General Internal Medicine 12/31/15 documented as of this encounter
--- OUTSIDE RECORDS SUMMARY | 2025-03-06 17:18 | XMS_ITS | Encounter Summary ---
Author Organization [employer] Address [address] [facility] [address] 7t [place] [address] Care Team Providers Care Blending Coordinator Name Role Phone Name, Ran TAVARES Primary Care Provider [phone] Reason for Visit * Reason Onset Date Comments Med Refill 06/01/2024 Encounter Details Date Type Department Care Team ([facility] st Contact Info) Description 06/01/2024 Telephone [facility] MED[facility]INE 230 [place], [place] [phone] Name, MD Ran 230 [place] [address] Med Refill Social History Tobacco Use Types [...] mg immediate release tablet rx. Filled at [facility] [place], for qty - 112 for 28 days supply. Meds. [facility] for approval. * Telephone Encounter - Aure Ferreira - 06/01/2024 1:20 PM EDT TC from pt requesting medication refill. Medications needing refill : oxyCODONE (Roxicodone) 10 MG immediate release tablet To be sent to: [id number] - [address] AT [facility] documented in this encounter Plan of Treatment Upcoming Encounters Date Type Department Care Team ([facility] st Contact Info) Description 03/12/2025 11:15 AM EDT Office Visit [facility] [address] [place] [address] Name, [place] [address] 03/27/2025 9:45 AM EDT Office Visit [facility] [address] [place] [address] documented as of this encounter Visit Diagnoses Not on filedocumented in this encounter Additional Health Concerns Assessment Noted Time PHQ-9 Depression Total Score: 19 023 4:10 PM EDT documented as of this encounter Care Teams Blending Coordinator Relationship Specialty Start Date End Date Name, MD Ran 230 [place] [address] PCP - General Family Medicine 11/15/18 documented as of this encounter
--- OUTSIDE RECORDS SUMMARY | 2025-03-06 17:18 | XMS_ITS | Encounter Summary ---
Author Organization [facility] Address [address] [facility] [place] [address] Care Team Providers Care Bearing Machine Operator Name Role Phone Name, Ran TAVARES Primary Care Provider Unavailabl e Encounter Details Date Type Department Care Team Description 06/09/2018 Business Doc Medical Records [address] [place] [address] Abstract, Provider Social History Tobacco Use Types [...] on filedocumented in this encounter Care Teams Bearing Machine Operator Relationship Specialty Start Date End Date Name, MD Ran PCP - General Internal Medicine 12/31/15 documented as of this encounter
--- OUTSIDE RECORDS SUMMARY | 2025-03-06 17:18 | XMS_ITS | Encounter Summary ---
Author Organization [employer] Address [address] 7[address] [place] [address] Care Team Providers Care Pipe Cleaner Name Role Phone Name, Ran TAVARES Primary Care Provider [phone] Reason for Visit * Reason Comments Med Refill Encounter Details Date Type Department Care Team ([facility] st Contact Info) Description 11/03/[address] [facility] [address] [place], [place] [phone] Name, MD Ran [address] [place] [address] Essential hypertension Social History Tobacco Use Types Packs/Day Years Used Date Smoking Tobacco: Never Smokeless Tobacco: Never Alcohol Use Standard Drinks/Week Comments Never 0 (1 standard drink = 0.6 oz pur e alcohol) Depression Answer Date Recorded Patient Health Questionnaire-9 Score 19 06/28/2023 Housing Stability Answer Date Recorded What is your housing situation today? I have guveara nguyễn 09/13/[address] you [...] the past 12 months, has t he [employer], [employer], oil or water company threatened to shut [...] Description 03/12/2025 11:15 AM EDT Office Visit [facility] [address] [place] [address] NameRan MD [address] [place] [address] 03/27/2025 9:45 AM EDT Office Visit [address] [address] documented as of this encounter Visit Diagnoses Diagnosis Essential hypertension Unspecified essential hypertension documented in this encounter Additional Health Concerns Assessment Noted Time PHQ-9 Depression Total Score: 19 023 4:10 PM EDT documented as of this encounter Care Teams Pipe Cleaner Relationship Specialty Start Date End Date NameRan MD [address] [place] [address] PCP - General Family Medicine 11/15/18 documented as of this encounter
--- OUTSIDE RECORDS SUMMARY | 2025-03-06 17:18 | XMS_ITS | Encounter Summary ---
Author Organization [facility] Address [address] [place] [address] Care Team Providers Care Molasses Preparer Name Role Phone Name, Ran TAVARES Primary Care Provider Unavailabl e Name, Ran TAVARES Primary Care Provider Unavailabl e Reason for Visit * Reason Onset Date Comments medication problems 06/03/2012 Encounter Details Date Type Department Care Team Description 06/03/2012 Telephone Adult Medicine [address] [address] Name, MD Ran medication problems Social History Tobacco Use Types Packs/Day Years Used Date Smoking Tobacco: Never Smokeless Tobacco: Never Alcohol Use Standard Drinks/Week Comments No 0 (1 standard drink = 0.6 oz pur e alcohol) Sex Assigned at Date Recorded Not on file documented as of this encounter Miscellaneous Notes * Telephone Encounter - Kinga Layne M.A. - 06/03/2012 2:58 PM EDT Will wait for dr almanza to return * Telephone Encounter - Pat Conrad - 06/03/2012 1:04 PM EDT Who is calling? A pharmacist: Pharmacy: [facility] Pharmacist Name: [facility] Pharmacy Phone # NA Name of the medication FEXOFENADINE HCL 60 MG What is the specific problem or interaction? INSURANCE WILL NOT COVER,IS THERE AN ALTERNATIVE? If the patient is having a problem with taking the med - how long has the problem been going on? N/A documented in this encounter Plan of Treatment Not on file documented as of this encounter Visit Diagnoses Not on filedocumented in this encounter Care Teams Molasses Preparer Relationship Specialty Start Date End Date Name, MD Ran PCP - General 03/04/09 12/30/15 Name, MD Ran PCP - General Internal Medicine 12/31/15 documented as of this encounter
--- OUTSIDE RECORDS SUMMARY | 2025-03-06 17:18 | XMS_ITS | Encounter Summary ---
Author Organization [employer] Address [address] [facility] [address] 7[address] [place] [address] Care Team Providers Care Green Material Value Added Assessor Name Role Phone Name, Ran TAVARES Primary Care Provider [phone] Reason for Visit * Reason Comments Med Refill Encounter Details Date Type Department Care Team ([facility] st Contact Info) Description 06/22/2024 Refill [facility] MED[facility]INE 230 [place], [place] [phone] Name, MD Ran 230 [place] [address] Social History Tobacco Use Types Packs/Day Years [...] Description 03/12/2025 11:15 AM EDT Office Visit [facility] [address] [place] [address] Name, MD Ran [address] [place] [address] 03/27/2025 9:45 AM EDT Office Visit [address] [address] documented as of this encounter Visit Diagnoses Not on filedocumented in this encounter Additional Health Concerns Assessment Noted Time PHQ-9 Depression Total Score: 19 023 4:10 PM EDT documented as of this encounter Care Teams Green Material Value Added Assessor Relationship Specialty Start Date End Date Name, MD Ran [address] [place] [address] PCP - General Family Medicine 11/15/18 documented as of this encounter
--- OUTSIDE RECORDS SUMMARY | 2025-03-06 17:18 | XMS_ITS | Encounter Summary ---
Author Organization [employer] Address [address] [facility] [address] [facility] [address] 7t [place] [address] Care Team Providers Care Plant Protection Superintendent Name Role Phone Name, Ran TAVARES Primary Care Provider [phone] Reason for Visit * Reason Onset Date Comments Appointment Request 12/01/2024 Encounter Details Date Type Department Care Team ([facility] st Contact Info) Description 12/01/[address] [facility] 230 [place], [place] [phone] Name, MD Ran 230 [place], [place] [phone] Appointment Request Social History Tobacco Use Types [...] EDT Office Visit [facility] [address] [place] [address] Name, MD Ran [address] [place] [address] 03/27/2025 9:45 AM EDT Office Visit [facility] [address] [place] [address] documented as of this encounter Visit Diagnoses Not on filedocumented in this encounter Additional Health Concerns Assessment Noted Time PHQ-9 Depression Total Score: 11 024 9:57 AM EST documented as of this encounter Care Teams Plant Protection Superintendent Relationship Specialty Start Date End Date NameRan MD [address] [place] [address] PCP - General Family Medicine 11/15/18 documented as of this encounter
--- OUTSIDE RECORDS SUMMARY | 2025-03-06 17:18 | XMS_ITS | Clinical Summary ---
Author Organization [employer] Address [address] [place] [address] Care Team Providers Care Personal Care Home Administrator Name Role Phone Name, Ran TAVARES Primary Care Provider [phone] Allergies Active Allergy Reactions Criticality Noted Date [...] crush or chew. 60 capsule 11 024 Active gabapentin (Neurontin) 600 MG tablet Take 1 tablet (600 mg) by mouth 2 times daily. 60 tablet 3 024 Active atorvastatin (Lipitor) 20 MG tablet Take 1 tablet (20 mg) by mouth in the morning. 30 tablet 11 024 Active Blood Glucose Monitoring Suppl ([employer] [place] Lite) w/Device kit Use to test blood sugar 1 times daily 1 kit 04/01/2 024 Active Alcohol Swabs (Alcohol Prep) 70 % pads USE TO TEST BLOOD SUGAR 1 TIME EVERY DAY 100 each 5 024 Active FreeStyle lancetsIndication s:Diabetic polyneuropathy associated with type 2 diabetes mellitus ([facility]/HCC) USE TO TEST BLOOD SUGAR DAILY 100 each 024 Active polyethylene glycol, PEG, 3350 (Glycolax) 17 GM/SCOOP powder MIX 17 GMS IN 8 OZ OF LIQUID AND DRINK EVERY DAY 238 g 3 024 Active lisinopril 10 MG tabletIndications :Essential hypertension Take 1 tablet (10 mg) by mouth Once per day. 30 tablet 024 2024 Active amitriptyline (Elavil) 10 MG tablet TAKE 1 TABLET(10 MG) BY MOUTH AT BEDTIME 30 tablet 024 Active Dulaglutide (Trulicity) 1.5 MG/0.5ML solution auto-injectorIndi cations:Type 2 diabetes mellitus without complication, without long-term current use of insulin ([facility]),Chest tightness Inject 0.5 mL (1.5 mg) under the skin 1 (one) time per week. 2 mL 024 2024 Active albuterol 108 (90 Base) MCG/ACT inhaler INHALE 2 PUFFS BY MOUTH EVERY 4 TO 6 HOURS NEEDED 8.5 g 3 025 Active loratadine (Claritin) 10 MG tabletIndications :Seasonal allergic rhinitis, unspecified trigger TAKE 1 TABLET BY MOUTH EVERY MORNING 90 tablet 1 025 Active oxyCODONE (Roxicodone) 10 MG immediate release tabletIndications :Cervical spondylosis without myelopathy Take 1 tablet (10 mg) by mouth every 6 (six) hours if needed for severe pain for up to 28 days. Do not start before February 28, 2025. 112 tablet 025 2024 Active FREESTYLE LITE test strip 1Use to test blood sugar 1 times daily 100 each 12 024 2024 oxyCODONE (Roxicodone) 10 MG immediate release tabletIndications :Cervical spondylosis without myelopathy Take 1 tablet (10 mg) by mouth every 6 (six) hours if needed for severe pain for up to 28 days. Do not start before January 31, 2025. 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 09/15 Overview (12/28/2024): Medication: oxycodone 10mg Q6H PRN Indication: cervical radiculitis, fibromyositis Last MICROBIAL SPECIALIST Agreement: 09/26/24 Tier II (visit every 3 months) Assessment & Plan (02/20/2025 1:56 PM EDT): Timeline: - 01/23/25: Group - utox wnl, pill count 5 less than expected (reports forgot 6 at home) - 02/20/25: Group - utox/pill count as expected Assessment & Plan (01/25/2025 12:31 PM EDT): Timeline: - 01/23/25: Group - utox wnl, pill count 5 less than expected (reports forgot 6 at home) Diabetic polyneuropathy asso ciated with type 2 [...] anterior disc osteophyte complexes. Assessment & Plan (02/20/2025 1:55 PM EDT): -Good engagement and participation with Group Medical Visit model -Encouraged multifactorial approach to pain control including pharm and non- pharm modalities -Utox and pill count as expected Assessment & Plan (01/25/2025 12:31 PM EDT): -Good engagement and participation with Group Medical Visit model -Encouraged multifactorial approach to pain control including pharm and non- pharm modalities -UTOX as expected, pill count 5 short (although pt reports she has 6 she forgot at home. See manager electrical for details) -DME request for 10-in-1 pillow sent 01/25/25 Assessment & Plan (12/28/2024 1:15 PM EST): [...] and Medication management. At this time Sophy Lavonne Johnny Turner meets criteria for Visit Diagnoses: Problem List Items Addressed This Visit Other ALCON (generalized anxiety disorder) Recurrent major depressive disorder, in remission ([facility]) Patient ready to address current needs Yes Strengths include willing to seek treatment. PLAN: 1. Follow up with [facility]: Not recommended for follow-up 2. Patient goal is to engage in OP services. 3. Behavioral Recommendations a. Ind. Therapy, referral will be placed b. Medication Management, referral will be placed. c. Use of coping skills provided Current moderate episode of major depressive dis order 03/21/2009 Overview (06/24/2023): Patient is follows at [facility]. She is prescribed antidepressant and Seroquel Resolved Problems Problem Noted Date Diagnosed Date Resolved Date Chronic hoarseness 10/22/2022 4 Prediabetes 09/23/2016 01/20/2023 Secondary hypertension 02/03/201601/20 Abnormal mammogram 12/13/2015 4 Heartburn 08/10/2014 02/15/2024 Hyperglycemia 08/18/2012 02/15/2024 Abnormal brain MRI 03/10/2011 3 Encounters Date Type Department Care Team Description 02/26/2025 Telephone [facility] [address] [place] [address] Ran Carrasquillo MD Med Refill 02/23/2025 Refill [facility] [address] [place] [address] Ran Carrasquillo MD Cervical spondylosis without myelopathy 02/20/2025 9:45 AM EDT Office Visit [facility] [address] [place], [place] [phone] Roxane Farr, RULING MACHINE FEEDER Cervical spondylosis without myelopathy (Primary Dx); half-way (current) use of opiate analgesic 02/20/2025 Travel 01/26/2025 Refill [facility] [address] [place] [address] Ran Carrasquillo MD Cervical spondylosis without myelopathy 01/26/2025 Telephone [facility] [address] [place], [place] [phone] Ran Carrasquillo MD Durable Medical Equipment (10 in 1 pillow ) 01/23/2025 9:45 AM EDT Office Visit [facility] [address] [place] [address] Phalen, Roxane, RULING MACHINE FEEDER Cervical spondylosis without myelopathy (Primary Dx); 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 01/23/2025 Telephone [facility] [place] [address] Jania Oliveira, RN Oxycodone count 01/23/2025 Travel 01/19/2025 Orders Only GENERIC EXTERNAL DATA DEPARTMENT Provider, Generic External Data 01/16/2025 Refill [facility] [place] [address] Ran Carrasquillo MD Seasonal allergic rhinitis, unspecified trigger 01/15/2025 Refill [facility] [address] [place] [address] Ran Carrasquillo MD Seasonal allergic rhinitis, unspecified trigger 12/29/2024 Refill [facility] [address] [place] [address] Ran Carrasquillo MD Cervical spondylosis without myelopathy 12/29/2024 Refill [facility] [address] [place] [address] Ran Carrasquillo MD 12/26/2024 9:45 AM EST Office Visit [facility] [place] [address] RochelleenLionelle, RULING MACHINE FEEDER Cervical spondylosis without myelopathy (Primary Dx); 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 12/26/2024 Refill [facility] [place] [address] Jania Oliveira RN 12/26/2024 Travel 12/21/2024 Telephone [facility] [address] [place] [address] Ran Carrasquillo MD Prior Authorization 12/21/2024 Telephone [facility] [address] [place] [address] Ran Carrasquillo MD Med Refill from Last 3 Months Immunizations Name Administration [...] Description 03/12/2025 11:15 AM EDT Office Visit [facility] [address] [place] [address] Name, MD Ran [address] [place] [address] 03/27/2025 9:45 AM EDT Office Visit [address] [address] Health Maintenance Due Date Last Done Comments CT Colonography 1960 FIT DNA/Cologuard 1960 FIT 1960 FOBT 1960 HIV Screening 1960 Sigmoidoscopy 1960 Hepatitis C Screening 1980 Pneumococcal Vaccine: 50+ Years (1 of 2 - PCV) 1981 Zoster Vaccines (1 of 2) 2012 COVID-19 Vaccine ( - season) 2024 05/06/2021, 04/22/2021, 03/25/2021 Influenza Vaccine (#1) 2024 08/22/2009 Cervical Cancer Screening 01/20/2025 Colonoscopy 01/20/2025 01/12/2022, 12/30/2021 Colorectal Cancer Screening 01/20/2025 Colposcopy 01/20/2025 05/27/2023 HPV/Cotest 01/20/2025 01/19/2025, 07/15/2022 Pap Smear 01/20/2025 01/19/2025, 0811/2021, 07/15/2022 Diabetes: Hemoglobin A1C 01/25/2025 024, 09/21/2023, 06/29/2023, Additional history exists Mammogram 04/23/2025 05/14/2023, 04/22/2023 Depression Monitoring 05/04/2025 11/03/2024, 024 Diabetes: Urine Protein Screening 07/25/2025 07/25/2024, 08/25/2023, 10/16/2020 Lipid Panel 07/25/2025 07/25/2024, 08/15, 10/16/2020 Diabetes: Foot Exam 07/28/2025 07/28/2024, 07/28/2024, 07/28/2024, Additional history exists SDOH Screening 10/26/2025 10/26/2024 Alcohol/Substance Use Screening 11/03/2025 11/03/2024 Depression Screening 11/03/2025 11/03/2024, 11/03/20 24 Tobacco Screening 11/10/2025 11/10/2024 DTaP/Tdap/Td Vaccines (2 - Td or Tdap) 10/19/2026 10/19/2016, 03/21/2013, 03/21/2013 Eye Exam 11/10/2026 11/10/2024, 10/16, 11/10/2024, Additional history exists RSV Patients and Patients Aged 60 years [...] Comments POCT SHAY-14 URINE DRUG SCREEN Routine 02/20/2025 10:50 AM EDT Cervical spondylosis without myelopathy 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 POCT SHAY-14 URINE DRUG SCREEN Routine 01/23/2025 11:38 AM EDT Cervical spondylosis without myelopathy PAP SMEAR Routine 01/19/2025 3:52 PM EST HPV DNA, LOW/HIGH RISK Routine 01/19/2025 3:52 PM EST POCT SHAY-14 URINE DRUG SCREEN Routine 12/26/2024 1:56 PM EST 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 POCT GLYCATED HEMOGLOBIN, TOTAL Routine 07/28/2024 10:01 AM EDT Type 2 diabetes mellitus without complication, without long-term current use of insulin (CMS/HCC) ALBUMIN, RANDOM URINE W/CREATININE Routine 07/25/2024 11:47 AM EDT Type 2 diabetes mellitus without complication, without long-term current use of insulin (CMS/HCC) LIPID PANEL, STANDARD Routine 07/25/2024 11:30 AM EDT Type 2 diabetes mellitus without complication, without long-term current use of insulin (CMS/HCC) Cervical dystonia Chronic neck pain COLPOSCOPY Routine 05/27/2023 HM MAMMOGRAPHY Routine 05/14/2023 4:05 PM EDT HM COLONOSCOPY Routine 01/12/2022 3:24 PM EST from Last 3 Months or Most Recently Relevant to Health Maintenance Results * POCT SHAY-14 Urine Drug Screen (02/20/2025 10:50 AM EDT) Only the most recent of3 resultswithin the time period is included. TCA, Urine Positive Oxycodone Screen, Urine Positive Urine Urine specimen obtained by clean catch procedure / Unknown 02/20/2025 10:50 AM EDT Narrative Sugey Solorio RN - 02/20/2025 10:50 AM EDT .UTOX cup Lot#[id number] Exp. 07/04/26 Internal Pass Control Roxane Farr RULING MACHINE FEEDER POINT OF CARE TEST ENTER/EDIT ORDERABLES Final Result * (ABNORMAL) HPV DNA, Low/High Risk (01/19/2025 3:52 PM EST) HPV High Risk Positive(A) Negative [facility] HPV Genotype 16 Negative Negative [facility] HPV Genotype 18 Negative Negative [facility] Comment:HPV testing performe d at [facility] (CLIA#[id number]), [address] [place] [address].Testing for HPV was performed using the Marsha BHAVANA 6800system. The presence of HPV in the female genital tract isassociated with a number of diseases, including cervicalcarcinoma. The HPV DNA high risk pool tests for HPV 31, 33,35, 39, 45, 51, 52, 56, 58, 59, 66 and 68. The testing forHPV 16 and 18 genotypes has also been performed. A positiveresult indicates detection of nucleic acid sequences fromone or more subtypes, whereas a negative result indicatessuch sequences were not detected. 01/19/2025 3:52 PM EST 01/22/2025 6:49 AM EDT us Generic External Data Provider LAB BLOOD ORDERAB LES Final Result [facility] [address] [place] [phone] * Pap Smear (01/19/2025 3:52 PM EST) 01/19/2025 3:52 PM EST 01/22/2025 6:25 AM EDT Narrative [facility] - 01/25/2025 10:34 AM EDT ----- ------- Name: Sophy Gongora ? Age/Sex: 64/F ? : 1960 Unit#: [id number] ?? Attend Dr: Viet Mario MD ?Re01/19/25 ?Status: DEP REF ? Location: HO.LNP ?Disch: ? ----- ------- SPEC : [id number] ? RECD: 01/22/25 ? STATUS: ??SOUT ? REQ NUM: [id number] ? SIGIFREDO: 01/19/25-1551 ? SUBM DR: Viet Mario MD ? ENTERED: ??01/22/25 ?SP TYPE: Pap Smr ?OTHR DR: Ran Carrasquillo MD ? ORDERED: ??Pap Smear, PAP path review ? Interpretation ?? ABNORMAL PAP TEST. ?? Satisfactory for evaluation, with atypical squamous cells of undetermined significance ?? (ASC-US). ?? Mild inflammation. ? HPV High Risk: ??Positive ? HPV Genotyping 16: ??Negative ?? HPV Genotyping 18: ??Negative ?Clinical Information LMP: Previous PAP test: Unk Other surgery: Other history: ? Material Received ?? ThinPrep-Cervical Copies To: ?? Name,Ran TAVARES ?? [address] [facility] ?? [place] [address] ?? [phone] ?? Viet Mario MD ?? [facility] ?? [address] ?? [place] [address] ?? [phone] ----- ------- Signed (signature on file) Mauricio Santamaria MD 01/25/25 1034 ? ----- ------- ? END OF REPORT ? Generic External Data Provider LAB CYTOLOGY ORDE RABLES Final Result Performing Organization Address [facility] Co de Phone Number [facility] [address] [place] [address] [phone] * (ABNORMAL) POCT HGB A1C (07/28/2024 10:01 AM EDT) Hemoglobin A1C 6.1(A) 4.0 - 6.0 % QC Media Lot # [id number] Lot# Expiration Date Blood 07/28/2024 10:0 1 AM EDT Ran Carrasquillo MD POINT OF CARE TEST ENTER/EDIT OR DERABLES Final Result * Albumin, Random Urine W/Creatinine (07/25/2024 11:47 AM EDT) Creatinine, Urine 123.17 mg/dL [facility] Microalbumin Urine 13.0 mg/L [facility] Microalbum Creatinine Ratio Ur 10.5 <30 ug/mg cr [facility] Comment:Albumin/Creatinine R atio Reference Ranges: Normal: < 30 ug/mg creatinine Microalbuminuria: 30 - 300 ug/mg creatinineClinical Albuminuria: > 300 ug/mg creatinine Urine (Urine, Random) 07/25/2024 11:47 AM EDT 07/25/2024 1:03 PM EDT us Ran Carrasquillo MD LAB URINE ORDERABLES Final Resul t Performing Organization Address City/[facility]/ZIP Co de Phone Number [facility] [address] [place] [address] [phone] * (ABNORMAL) Lipid Panel, Standard (07/25/2024 11:30 AM EDT) Triglycerides 259(H) <150 mg/dL [facility] Comment:Desirable Triglyceri de: less than 150 mg/dLBorderline High Triglyceride 150-199 mg/dLHigh Triglyceride: 200-499 mg/dLVery High Triglyceride: greater than or equal to 5OO mg/dL Cholesterol 224(H) <200 mg/dL [facility] Comment:Desirable Cholestero l: less than 200 mg/dLBorderline High Cholesterol: 200-239 mg/dLHigh Cholesterol: greater than 239 mg/dL LDL Cholesterol Calculated 128(H) <100 mg/dL [facility] Comment:Desirable LDL: less than 100 mg/dLNear Optimal/Above Optimal LDL: 110- 129 mg/dLBorderline High LDL: 130-159 mg/dLHigh LDL: 160-189 mg/dLVery High LDL: greater than or equal to 190 mg/dL HDL Cholesterol 45 >40 mg/dL [facility] Comment:Desirable HDL: great er than 40 mg/dL Note: This HDL assay may give artificially low results in patients with liver disease. Blood Venous blood specimen / Unknown 07/25/2024 11:30 AM EDT 07/25/2024 1:15 PM EDT us Ran Carrasquillo MD LAB BLOOD ORDERABLES Final Resul t [facility] [address] [place] [phone] * Colposcopy (05/27/2023) Historical Provider IN CLINIC/BEDSIDE ORDERAB LES Final Result * Hm Mammography (05/14/2023 4:05 PM EDT) Mammogram BI-RADS 1: Negative Anatomical Region Laterality Modality Other us Ran Carrasquillo MD HEALTH MAINTENANCE Final Result * Hm Colonoscopy (01/12/2022 3:24 PM EST) Colonoscopy Normal Normal Narrative Magalis Layton - 01/12/2022 3:24 PM EST Recommended 10 year follow up Historical Provider HEALTH MAINTENANCE Final Result from Last 3 Months or Most Recently Relevant to Health Maintenance [place] [address] [address] STANDARD MEDICARE [facility] PPO Care Teams Personal Care Home Administrator Relationship Specialty Start Date End Date Name, MD Ran [address] [place] [address] PCP - General Family Medicine 11/15/18
--- OUTSIDE RECORDS SUMMARY | 2025-03-06 17:18 | XMS_ITS | Encounter Summary ---
Author Organization [employer] Address [address] [place] [address] Care Team Providers Care Terra Cotta Setter Name Role Phone Name, Ran TAVARES Primary Care Provider [phone] Reason for Visit * Reason Onset Date Comments appt change 01/21/2023 Encounter Details Date Type Department Care Team ([facility] Contact Info) Description 01/21/2023 Telephone [facility] [address] [place], [place] [phone] Name, MD Ran [address] [place] [address] appt change Social History Tobacco Use Types [...] Upcoming Encounters Date Type Department Care Team ([facility] Contact Info) Description 03/12/2025 11:15 AM EDT Office Visit [facility] [place] [address] Name, MD [facility] [place] [address] 03/27/2025 9:45 AM EDT Office Visit [facility] [place] [address] documented as of this encounter Visit Diagnoses Not on filedocumented in this encounter Care Teams Terra Cotta Setter Relationship Specialty Start Date End Date Name, MD Ran [facility] [place] [address] PCP - General Family Medicine 11/15/18 documented as of this encounter
--- OUTSIDE RECORDS SUMMARY | 2025-03-06 17:18 | XMS_ITS | Encounter Summary ---
Author Organization [employer] Address [address] [place] [address] Care Team Providers Care Supervisor Blood Donor Recruiters Name Role Phone Name, Ran TAVARES Primary Care Provider [phone] Encounter Details Date Type Department Care Team ([facility] Contact Info) Description 03/17/2023 Orders Only [facility] [address] [place], [place] [phone] aWndy Clarke LPN Social History Tobacco Use Types [...] Department Care Team (Late Contact Info) Description 03/12/2025 11:15 AM EDT Office Visit [facility] [address] [place] [address] [phone] Name, MD Ran [address] [place] [address] 03/27/2025 9:45 AM EDT Office Visit [address] [phone] documented as of this encounter Visit Diagnoses Not on filedocumented in this encounter Care Teams Supervisor Blood Donor Recruiters Relationship Specialty Start Date End Date Name, MD Ran [address] [place] [address] PCP - General Family Medicine 11/15/18 documented as of this encounter
--- OUTSIDE RECORDS SUMMARY | 2025-03-06 17:18 | XMS_ITS | Encounter Summary ---
Author Organization [employer] Address [address] [place] [address] Care Team Providers Care Concrete Placement Equipment Operator Name Role Phone Name, Ran TAVARES Primary Care Provider [phone] Reason for Visit * Reason Comments Med Refill Encounter Details Date Type Department Care Team ([facility] st Contact Info) Description 11/12/2023 Refill [facility] [address] [place], [place] [phone] Name, MD Ran [address] [place] [address] Seasonal allergic rhinitis, unspecified trigger Social History [...] 11:15 AM EDT Office Visit [facility] [address] [place] [phone] NameRan MD [address] [place] [address] 03/27/2025 9:45 AM EDT Office Visit [address] [address] documented as of this encounter Visit Diagnoses Diagnosis Seasonal allergic rhinitis, unspecified trigger documented in this encounter Additional Health Concerns Assessment Noted Time PHQ-9 Depression Total Score: 19 023 4:10 PM EDT documented as of this encounter Care Teams Concrete Placement Equipment Operator Relationship Specialty Start Date End Date NameRan MD [address] [place] [address] PCP - General Family Medicine 11/15/18 documented as of this encounter
--- OUTSIDE RECORDS SUMMARY | 2025-03-06 17:18 | XMS_ITS | Encounter Summary ---
Author Organization [employer] Address [address] [place] [address] Care Team Providers Care Electric Cell Tender Name Role Phone Name, Ran TAVARES Primary Care Provider [phone] Reason for Visit * Reason Onset Date Comments Appointment Request 02/10/2023 Encounter Details Date Type Department Care Team ([facility] st Contact Info) Description 02/10/2023 Telephone [facility] [address] [place] [address] [phone] Name, MD Ran [address] [place], [place] [phone] Appointment Request Social History Tobacco Use Types [...] r/s once again. Please contact pt at [phone]. PCP Dr. Name * Telephone Encounter - Michelle hGosh - 02/10/2023 11:50 AM EDT Tc from pt requesting to r/s appt for DERM NEW on 02/12/2023 Please contact pt at [phone] Indonesian Speaker documented in this encounter Plan of Treatment Upcoming Encounters Date Type Department Care Team (Late st Contact Info) Description 03/12/2025 11:15 AM EDT Office Visit [address] [address] Name, MD Ran [address] [place] [address] 03/27/2025 9:45 AM EDT Office Visit [address] [address] documented as of this encounter Visit Diagnoses Not on filedocumented in this encounter Care Teams Electric Cell Tender Relationship Specialty Start Date End Date Name, MD Ran [address] [place] [address] PCP - General Family Medicine 11/15/18 documented as of this encounter
--- OUTSIDE RECORDS SUMMARY | 2025-03-06 17:18 | XMS_ITS | Encounter Summary ---
Author Organization [facility] Address [address] [place] [address] Care Team Providers Care Barbed Wire Machine Operator Name Role Phone Name, Ran TAVARES Primary Care Provider Unavailabl e Encounter Details Date Type Department Care Team Description 09/03/2016 Business Doc Medical Records [address] [place] [phone] Abstract, Provider Social History Tobacco Use Types [...] on filedocumented in this encounter Care Teams Barbed Wire Machine Operator Relationship Specialty Start Date End Date Name, MD Ran PCP - General Internal Medicine 12/31/15 documented as of this encounter
--- OUTSIDE RECORDS SUMMARY | 2025-03-06 17:18 | XMS_ITS | Encounter Summary ---
Author Organization [employer] Address [address] [place] [address] Care Team Providers Care Manager Printing Name Role Phone Name, Ran TAVARES Primary Care Provider [phone] Reason for Visit * Reason Onset Date Comments Med Refill 12/21/2024 Encounter Details Date Type Department Care Team ([facility] st Contact Info) Description 12/21/2024 Telephone [facility] [address] [place], [place] [id number] Name, MD Ran [address] [place] [address] Med Refill Social History Tobacco Use Types [...] 12:41 PM EST Medication was sent to [facility] #[id number] on 11/03/24 with 11 refills. * Telephone Encounter - Sunday Hinojosa - 12/21/2024 12:08 PM EST TC from pt requesting medication refill. Medications needing refill : Dulaglutide (Trulicity) 1.5 MG/0.5ML solution auto-injector [id number] [facility] documented in this encounter Plan of Treatment Upcoming Encounters Date Type Department Care Team ([facility] st Contact Info) Description 03/12/2025 11:15 AM EDT Office Visit [facility] [address] [place] [id number] Name, MD Ran [address] [place] [id number] 03/27/2025 9:45 AM EDT Office Visit [facility] [address] [place] [address] documented as of this encounter Visit Diagnoses Not on filedocumented in this encounter Additional Health Concerns Assessment Noted Time PHQ-9 Depression Total Score: 11 024 9:57 AM EST documented as of this encounter Care Teams Manager Printing Relationship Specialty Start Date End Date Name, MD Ran [address] [place] [address] PCP - General Family Medicine 11/15/18 documented as of this encounter
== END 2025-03-06 14:28 | disposition home or self-care (01) ==
LOC: HO.MAMMO 14:27
PROVIDERS: PCP Internal Medicine Geriatric Medicine; Visit Provider Obstetrics & Gynecology
DX: Z12.31 Encounter for screening mammogram for malignant neoplasm of breast (principal)
CPT/HCPCS: 77063; 77067

== ENCOUNTER → 2025-03-06 14:28 | Outpatient (BNV) | payer MEDICARE, SELFPAY | PROVIDERS: PCP Internal Medicine Geriatric Medicine; Visit Provider Internal Medicine | DX: Z12.31 Encounter for screening mammogram for malignant neoplasm of breast (principal) | CPT/HCPCS: 77063; 77067 ==

== ENCOUNTER 2025-03-13 14:42 | Outpatient (REF) | payer MEDICARE, SELFPAY ==
--- OUTSIDE RECORDS SUMMARY | 2025-03-13 18:35 | XMS_ITS | Encounter Summary ---
Author Organization [facility] Address [address] [place] [address] Care Team Providers Care Rotary Shear Operator Name Role Phone Name, Ran TAVARES Primary Care Provider Unavailabl e Name, Ran TAVARES Primary Care Provider Unavailabl e Encounter Details Date Type Department Care Team Description 05/30/2015 Business Doc Medical Records [address] [place] [id number] Abstract, Provider Social History Tobacco Use Types [...] on filedocumented in this encounter Care Teams Rotary Shear Operator Relationship Specialty Start Date End Date Ran Carrasquillo MD PCP - General 03/04/09 12/30/15 Ran Carrasquillo MD PCP - General Internal Medicine 12/31/15 documented as of this encounter
--- OUTSIDE RECORDS SUMMARY | 2025-03-13 18:35 | XMS_ITS | Encounter Summary ---
Author Organization [employer] Address [address] [place] [address] Care Team Providers Care Truck Bench Mechanic Name Role Phone Name, Ran TAVARES Primary Care Provider [phone] Encounter Details Date Type Department Care Team ([facility] Contact Info) Description 03/17/2023 Orders Only [facility] [address] [place] [address] Wandy Clarke LPN Social History Tobacco Use [...] Care Team (Late st Contact Info) Description 03/27/2025 9:45 AM EDT Office Visit [facility] [address] [place] [address] documented as of this encounter Visit Diagnoses Not on filedocumented in this encounter Care Teams Truck Bench Mechanic Relationship Specialty Start Date End Date Name, MD Ran [address] [place] [address] PCP - General Family Medicine 11/15/18 documented as of this encounter
--- OUTSIDE RECORDS SUMMARY | 2025-03-13 18:35 | XMS_ITS | Encounter Summary ---
Author Organization [facility] Address [address] [facility] [place] [address] Care Team Providers Care English Adjunct Faculty Name Role Phone Name, Ran TAVARES Primary Care Provider Unavailabl e Name, Ran TAVARES Primary Care Provider Unavailabl e Encounter Details Date Type Department Care Team Description 06/11/2015 Business Doc Medical Records [address] [place] [id number] Abstract, Provider Social History Tobacco Use Types [...] on filedocumented in this encounter Care Teams English Adjunct Faculty Relationship Specialty Start Date End Date Ran Carrasquillo MD PCP - General 03/04/09 12/30/15 Ran Carrasquillo MD PCP - General Internal Medicine 12/31/15 documented as of this encounter
--- OUTSIDE RECORDS SUMMARY | 2025-03-13 18:35 | XMS_ITS | Encounter Summary ---
Author Organization [facility] Address [address] [place] [address] Care Team Providers Care Child Care Attendant Name Role Phone Name, Ran TAVARES Primary Care Provider Unavailabl e Name, Ran TAVARES Primary Care Provider Unavailabl e Encounter Details Date Type Department Care Team Description 05/30/2014 Business Doc Medical Records [address] [place] [id number] Abstract, Provider Social History Tobacco Use Types [...] on filedocumented in this encounter Care Teams Child Care Attendant Relationship Specialty Start Date End Date Ran Carrasquillo MD PCP - General 03/04/09 12/30/15 Ran Carrasquillo MD PCP - General Internal Medicine 12/31/15 documented as of this encounter
--- OUTSIDE RECORDS SUMMARY | 2025-03-13 18:35 | XMS_ITS | Clinical Summary ---
Author Organization [employer] Address [address] [facility] [address] [place] [address] Care Team Providers Care Merchandising Professor Name Role Phone Name, Ran TAVARES Primary Care Provider [phone] Allergies Active Allergy Reactions Criticality Noted Date Comments Octacosanol 11/19/2021 Other reaction(s): Unknown Other reaction(s): Unknown Other 03/21/2009 Pollen,dust. Medications * This document contains information received from the source organization and may not represent a complete record from that organization. fluticasone (Flonase) 50 MCG/ACT nasal sprayIndications :Seasonal allergic rhinitis, unspecified trigger Administer 1-2 sprays into each nostril in the morning. Shake gently. Before first use, prime pump. After use, clean tip and replace cap. 16 g 2 023 Active atorvastatin (Lipitor) 20 MG tablet Take 1 tablet (20 mg) by mouth in the morning. 30 tablet 11 Active Blood Glucose Monitoring Suppl (FreeStyle Alum Bank Lite) w/Device kit Use to test blood sugar 1 times daily 1 kit Active Alcohol Swabs (Alcohol Prep) 70 % pads USE TO TEST BLOOD SUGAR 1 TIME EVERY DAY 100 each 5 Active FreeStyle lancetsIndicatio ns:Diabetic polyneuropathy associated with type 2 diabetes mellitus (CMS/HCC) USE TO TEST BLOOD SUGAR DAILY 100 each 11 Active polyethylene glycol, PEG, 3350 (Glycolax) 17 GM/SCOOP powder MIX 17 GMS IN 8 OZ OF LIQUID AND DRINK EVERY DAY 238 g 3 024 Active amitriptyline (Elavil) 10 MG tablet TAKE 1 TABLET(10 MG) BY MOUTH AT BEDTIME 30 tablet 5 024 Active albuterol 108 (90 Base) MCG/ACT inhaler INHALE 2 PUFFS BY MOUTH EVERY 4 TO 6 HOURS NEEDED 8.5 g 3 Active loratadine (Claritin) 10 MG tabletIndication s:Seasonal allergic rhinitis, unspecified trigger TAKE 1 TABLET BY MOUTH EVERY MORNING 90 tablet 1 Active oxyCODONE (Roxicodone) 10 MG immediate release tabletIndication s:Cervical spondylosis without myelopathy Take 1 tablet (10 mg) by mouth every 6 (six) hours if needed for severe pain for up to 28 days. Do not start before February 28, 2025. 112 tablet 2024 Active Dulaglutide (Trulicity) 3 MG/0.5ML solution auto-injectorInd ications:Type 2 diabetes mellitus without complication, without long-term current use of insulin ([facility]),Weight gain Inject 3 mg under the skin 1 (one) time per week. 2 mL Active SUMAtriptan (Imitrex) 50 MG tablet Take 1 tablet (50 mg) by mouth See administration instructions for 1 dose. May repeat dose once in 2 hours if no relief. Do not exceed 2 doses in 24 hours. 10 tablet Active DULoxetine (Cymbalta) [address] capsule Take 1 capsule (30 mg) by mouth 2 times daily. Do not crush or chew. 60 capsule 2025 Active gabapentin (Neurontin) 600 MG tablet Take 1 tablet (600 mg) by mouth 2 times daily. 60 tablet 025 2024 Active lisinopril 10 MG tabletIndication s:Essential hypertension Take 1 tablet (10 mg) by mouth Once per day. 30 tablet 11 2025 Active SUMAtriptan (Imitrex) 50 MG tablet TAKE 1 TABLET BY MOUTH AT ONSET OF MIGRAINE. MAY REPEAT AFTER 2 HOURS. IF HEADACHE RETURNS. NOT TO EXCEED 200 MG IN 24 HOURS 10 tablet 3 023 2024 Discontinued(R eorder (will not trigger notification to Pharmacy)) DULoxetine (Cymbalta) [address] capsule Take 1 capsule (30 mg) by mouth 2 times daily. Do not crush or chew. 60 capsule 11 024 2024 Discontinued(R eorder (will not trigger notification to Pharmacy)) gabapentin (Neurontin) 600 MG tablet Take 1 tablet (600 mg) by mouth 2 times daily. 60 tablet 3 024 2024 Discontinued(R eorder (will not trigger notification to Pharmacy)) FREESTYLE LITE test strip 1Use to test blood sugar 1 times daily 100 each 12 024 2024 lisinopril 10 MG tabletIndication s:Essential hypertension Take 1 tablet (10 mg) by mouth Once per day. 30 tablet 11 024 2024 Discontinued(R eorder (will not trigger notification to Pharmacy)) Dulaglutide (Trulicity) 1.5 MG/0.5ML solution auto-injectorInd ications:Type 2 diabetes mellitus without complication, without long-term current use of insulin ([facility]),Chest tightness Inject 0.5 mL (1.5 mg) under the skin 1 (one) time per week. 2 mL 11 024 2024 Discontinued(D ose adjustment) oxyCODONE (Roxicodone) 10 MG immediate release tabletIndication s:Cervical spondylosis without myelopathy Take 1 tablet (10 mg) by mouth every 6 (six) hours if needed for severe pain for up to 28 days. Do not start before January 31, 2025. 112 tablet 025 2024 Discontinued(R eorder (will not trigger notification to Pharmacy)) Active Problems Problem Noted Date Diagnosed Date assisted (current) use of opiate analgesic 09/15 Overview (12/28/2024): Medication: oxycodone 10mg Q6H PRN Indication: cervical radiculitis, fibromyositis Last CONCRETE SPREADER Agreement: 09/26/24 Tier II (visit every 3 [...] diabetes mellitus 03/28/2024 Colon cancer screening 09/21/2023 Epigastric pain 06/24/2023 Gastro-esophageal reflux disease without [...] has 6 she forgot at home. See engineering specialist technician for details) -DME request for 10-in-1 pillow [...] and Medication management. At this time Sophy Turner meets criteria for Visit Diagnoses: Problem List Items Addressed This Visit Other ALCON (generalized anxiety disorder) Recurrent major depressive disorder, in remission ([facility]) Patient ready to address current needs Yes Strengths include willing to seek treatment. PLAN: 1. Follow up with [facility]: Not recommended for follow-up 2. Patient goal is to engage in OP services. 3. Behavioral Recommendations a. Ind. Therapy, referral will be placed b. Medication Management, referral will be placed. c. Use of coping skills provided Current moderate episode of major depressive dis order 03/21/2009 Overview (06/24/2023): Patient is follows at [facility]. She is prescribed antidepressant and Seroquel Resolved Problems Problem Noted Date Diagnosed Date Resolved Date Chronic hoarseness 10/22/2022 4 Prediabetes 09/23/2016 01/20/2023 Secondary hypertension 02/03/201601/20 Abnormal mammogram 12/13/2015 4 Heartburn 08/10/2014 02/15/2024 Hyperglycemia 08/18/2012 02/15/2024 Abnormal brain MRI 03/10/2011 3 Encounters Date Type Department Care Team Description 03/12/2025 11:15 AM EDT Office Visit [facility] [address] [place] [address] Ran Carrasquillo MD Type 2 diabetes mellitus without complication, without long-term current use of insulin ([facility]) (Primary Dx); Weight gain; ALCON (generalized anxiety disorder); Essential hypertension 03/12/2025 Travel 03/09/2025 Telephone [facility] [address] [place] [address] Ran Carrasquillo MD CHART PREP 03/06/2025 Orders Only [facility] External Provider, [facility] 02/26/2025 Telephone [facility] [address] [place] [address] Ran Carrasquillo MD Med Refill 02/23/2025 Refill [facility] [address] [place] [address] Ran Carrasquillo MD Cervical spondylosis without myelopathy 02/20/2025 9:45 AM EDT Office Visit [facility] [address] [place] [address] Roxane Farr FNP Cervical spondylosis without myelopathy (Primary Dx); terminal clerk (current) use of opiate analgesic 02/20/2025 Travel 01/26/2025 Refill [facility] [address] [place] [address] Ran Carrasquillo MD Cervical spondylosis without myelopathy 01/26/2025 Telephone [facility] [address] [place], [place] [phone] Ran Carrasquillo MD Durable Medical Equipment (10 in 1 pillow ) 01/23/2025 9:45 AM EDT Office Visit [facility] [place] [address] Phalen, Roxane, MANAGER PRIMARY CARE Cervical spondylosis without myelopathy (Primary Dx); assisted (current) use of opiate analgesic 01/23/2025 Telephone [facility] [address] [place] [address] Jania Oliveira, RN Oxycodone count 01/23/2025 Travel 01/19/2025 Orders Only GENERIC EXTERNAL DATA DEPARTMENT Provider, Generic External Data 01/16/2025 Refill [facility] [address] [place] [phone] Ran Carrasquillo MD Seasonal allergic rhinitis, unspecified trigger 01/15/2025 Refill [facility] [address] [place] [address] Ran Carrasquillo MD Seasonal allergic rhinitis, unspecified trigger 12/29/2024 Refill [facility] [address] [place] [phone] Ran Carrasquillo MD Cervical spondylosis without myelopathy 12/29/2024 Refill [facility] [address] [place] [address] Ran Carrasquillo MD 12/26/2024 9:45 AM EST Office Visit [facility] [place] [address] Lionel Farrle, MANAGER PRIMARY CARE Cervical spondylosis without myelopathy (Primary Dx); assisted (current) use of opiate analgesic 12/26/2024 Refill [facility] [address] [place] [phone] Jania Oliveira RN 12/26/2024 Travel 12/21/[address] [address] Ran Carrasquillo MD Prior Authorization 12/21/[address] [address] Ran Carrasquillo MD Med Refill from Last [...] Answer Date Recorded Patient Health Questionnaire-9 Score 16 03/12/2025 Patient Health Questionnaire-9 Score 16 03/12/2025 Last PHQ-9: Questionnaire Data Not on file 0 03/12/2025 Housing Stability Answer Date Recorded What is [...] Date Recorded Patient Health Questionnaire-2 Score 5 03/12/2025 Internet Access Answer Date Recorded Internet Access [...] Sign Reading Time Taken Comments Blood Pressure 132/85 03/12/2025 11:33 AM EDT Pulse 103 03/12/2025 11:11 AM EDT Temperature 35.8 ??C (96.5 ??F) 03/12/2025 11:11 AM E DT Respiratory Rate 18 03/12/2025 11:11 AM EDT Oxygen Saturation 98% 03/12/2025 11:11 AM EDT Inhaled Oxygen Concentration - - Weight 59.6 kg (131 lb 6.4 oz) 03/12/2025 11:11 AM EDT Height 157.5 cm (5' 2 ) 03/12/2025 11:11 AM EDT Body Mass Index 24.03 03/12/2025 11:11 AM EDT Plan of Treatment Upcoming Encounters Date Type Department Care Team (Late st Contact Info) Description 03/27/2025 9:45 AM EDT Office Visit [facility] [address] [place] [phone] Health Maintenance Due Date Last Done Comments CT Colonography 1960 FIT DNA/Cologuard 1960 FIT 1960 FOBT 1960 HIV Screening 1960 Sigmoidoscopy 1960 Hepatitis C Screening 1980 Pneumococcal Vaccine: 50+ Years (1 of 2 - PCV) 1981 Zoster Vaccines (1 of 2) 2012 COVID-19 Vaccine ( season) 2024 05/06/2021, 04/22/2021, 03/25/2021 Influenza Vaccine (#1) 2024 08/22/2009 Cervical Cancer Screening 01/20/2025 Colposcopy 01/20/2025 05/27/2023 HPV/Cotest 01/20/2025 01/19/2025, 07/15/2022 Pap Smear 01/20/2025 01/19/2025, 08/11/2021, 07/15/2022 Diabetes: Urine Protein Screening 07/25/2025 07/25/2024, 08/25/2023, 10/16/2020 Lipid Panel 07/25/2025 07/25/2024, 08/15, 10/16/2020 Diabetes: Foot Exam 07/28/2025 07/28/2024, 07/28/2024, 07/28/2024, Additional history exists Diabetes: Hemoglobin A1C 09/11/2025 025, 07/28/2024, 09/21/2023, Additional history exists SDOH Screening 10/26/2025 10/26/2024 Alcohol/Substance Use Screening 11/03/2025 11/03/2024 Depression Screening 03/12/2026 03/12/2025, 03/12/20 Tobacco Screening 03/12/2026 03/12/2025 DTaP/Tdap/Td Vaccines (2 - Td or Tdap) 10/19/2026 10/19/2016, 03/21/2013, 03/21/2013 Eye Exam 11/10/2026 11/10/2024, 10/16, 11/10/2024, Additional history exists Mammogram 03/06/2027 03/06/2025, 04/17, 04/22/2023 Colonoscopy 12/30/2031 01/12/2022, 12/30/2021 Colorectal Cancer Screening 12/30/2031 RSV Patients and Patients Aged 60 years [...] Name Priority Date/Time Associated Diagnosis Comments POCT GLYCATED HEMOGLOBIN, TOTAL Routine 03/12/2025 11:13 AM EDT Type 2 diabetes mellitus without complication, without long-term current use of insulin ([facility]) POCT GLUCOSE Routine 03/12/2025 11:12 AM EDT Type 2 diabetes mellitus without complication, without long-term current use of insulin (CMS/HCC) BI MAMMOGRAM SCREENING TOMOSYNTHESIS BILATERAL Routine 03/06/2025 2:28 PM EDT POCT SHAY-14 URINE DRUG SCREEN Routine 02/20/2025 10:50 AM EDT Cervical spondylosis without myelopathy assisted (current) use of opiate analgesic POCT SHAY-14 URINE DRUG SCREEN Routine 01/23/2025 11:38 AM EDT Cervical spondylosis without myelopathy PAP SMEAR Routine 01/19/2025 3:52 PM EST HPV DNA, LOW/HIGH RISK Routine 3:52 PM EST POCT SHAY-14 URINE DRUG SCREEN Routine 12/26/2024 1:56 PM EST terminal clerk (current) use of opiate analgesic ALBUMIN, RANDOM URINE W/CREATININE Routine 07/25/2024 11:47 AM EDT Type 2 diabetes mellitus without complication, without long-term current use of insulin (CMS/HCC) LIPID PANEL, STANDARD Routine 07/25/2024 11:30 AM EDT Type 2 diabetes mellitus without complication, without long-term current use of insulin (CMS/HCC) Cervical dystonia Chronic neck pain COLPOSCOPY Routine 05/27/2023 HM COLONOSCOPY Routine 01/12/2022 3:24 PM EST from Last 3 Months or Most Recently Relevant to Health Maintenance Results * (ABNORMAL) POCT HGB A1C (03/12/2025 11:13 AM EDT) Hemoglobin A1C 6.2(A) 4.0 - 6.0 % QC Media Lot # [id number] Lot# Expiration Date [id number] Blood 03/12/2025 11:1 3 AM EDT us Ran Name POINT OF CARE TEST ENTER/EDIT OR DERABLES Final Result * POCT Glucose (03/12/2025 11:12 AM EDT) Glucose Blood, POC 113 60 - 200 mg/dL QC Media Lot # [id number] Lot# Expiration Date [id number] Blood Capillary blood specimen / Unknown 03/12/2025 11:12 AM EDT us Ran Name MD POINT OF CARE TEST ENTER/EDIT OR DERABLES Final Result * BI Mammogram Screening Tomosynthesis Bilateral (03/06/2025 2:28 PM EDT) Anatomical Region Laterality Modality Breast Bilateral Mammography 03/06/2025 2:28 PM EDT Narrative 03/12/2025 5:04 PM EDT ? [facility] ? [address] ?[place] [address] ?[phone] ? Mammography Report ? Signed ? Patient: Rolan,Sophy L ? MR#: [id number] ? : 1960 ?Acct:[id number] ? Age/Sex: 64 / F ?ADM Date: 04/22/25 ? Loc: HO.MAMMO ? Attending Dr: Viet Mario MD ? Ordering Physician: Viet Mario MD ?Results: 2Benign ?? Findings ? Date of Service: //25 ?Follow Up: 1 Year From Orig ?? inal Mammogram ? Procedure(s): MM tomosynthesis screening BI ?? Accession Number(s): [id number] ? cc: Foreign,Ran TAVARES; Viet Mario MD ? EXAMINATION: ?? MM SCREENING DIGITAL BREAST TOMOSYNTHESIS, BILATERAL ? CLINICAL INFORMATION: ? Screening. Asymptomatic. ? COMPARISON: ?? Mammography: Comparison is made with available priors ? TECHNIQUE: ?? Digital breast mammography with tomosynthesis is performed in both the ?? craniocaudal and mediolateral oblique views along with computer-aided ?? detection (CAD). ? FINDINGS: ?? There are scattered areas of fibroglandular density (ACR BI-RADS breast ?? composition Category b). ?? Bilateral reduction mammoplasty. ?? There are no significant masses, abnormal calcifications, or other ?? abnormalities. ? MM/MM tomosynthesis screening BI ?? IMPRESSION: ?? No mammographic evidence of malignancy. ? ASSESSMENT: ? BI-RADS BI-RADS 2 - Benign Findings ? RECOMMENDATION: ?? Routine annual mammography screening. ? 1 year F/U ? This examination should not preclude the clinical evaluation of a ?? suspicious palpable abnormality. ? This patient's information was entered into a reminder system with a ?? target due date for their next mammogram. ? Electronically signed by: ??Sandra Camejo DO ??03/12/2025 05:01 PM EDT ? Dictated By: ?Sandra Camejo DO ? Signed By: ?<Electronically signed by Sandra Camejo, DO in OV> ? 03/12/25 1701 ? DD/ 1428 ? TD/TT: 03/06/25 1445 ? Railroad Shop Inspector: ? Procedure Note Corry Carrington - 03/12/2025 [place] [facility] [address] [place], [place] [address] Mammography Report Signed Patient: Sophy Gongora MR#: [id number] : 2Acct:[id number] Age/Sex: 64 / FADM Date: 03/06/25 Loc: HO.MAMMO Attending Dr: Viet Mario MD Ordering Physician: Viet Mario MDResults: 2Benign Findings Date of Service: 03/06/25Follow Up: 1 Year From [facility]a Mammogram Procedure(s): MM tomosynthesis screening BI Accession Number(s): [id number] cc: Name,Ran TAVARES; Viet Mario MD EXAMINATION: MM SCREENING DIGITAL BREAST TOMOSYNTHESIS, BILATERAL CLINICAL INFORMATION: Screening. Asymptomatic. COMPARISON: Mammography: Comparison is made with available priors TECHNIQUE: Digital breast mammography with tomosynthesis is performed in both the craniocaudal and mediolateral oblique views along with computer-aided detection (CAD). FINDINGS: There are scattered areas of fibroglandular density (ACR BI-RADS breast composition Category b). Bilateral reduction mammoplasty. There are no significant masses, abnormal calcifications, or other abnormalities. MM/MM tomosynthesis screening BI IMPRESSION: No mammographic evidence of malignancy. ASSESSMENT: BI-RADS BI-RADS 2 - Benign Findings RECOMMENDATION: Routine annual mammography screening. 1 year F/U This examination should not preclude the clinical evaluation of a suspicious palpable abnormality. This patient's information was entered into a reminder system with a target due date for their next mammogram. Electronically signed by: Sandra Camejo DO 03/12/2025 05:01 PM EDT Dictated By: Sandra Camejo DO Signed By: <Electronically signed by Sandra Camejo DO in OV> 03/12/25 1701 DD/ 1428 TD/TT: 03/06/25 1445 Railroad Shop Inspector: [facility] External Provider IMG BI PROCEDURES Final Result * POCT SHAY-14 Urine Drug Screen (02/20/2025 10:50 AM EDT) Only the most recent of3 resultswithin the time period is included. TCA, Urine Positive Oxycodone Screen, Urine Positive Urine Urine specimen obtained by clean catch procedure / Unknown 02/20/2025 10:50 AM EDT Narrative Sugey Solorio RN - 02/20/2025 10:50 AM EDT .UT[employer] cup Lot#[id number] Exp. 07/04/26 Internal Pass Control Roxane Farr MANAGER PRIMARY CARE POINT OF CARE TEST ENTER/EDIT ORDERABLES Final Result * (ABNORMAL) HPV DNA, Low/High Risk (01/19/2025 3:52 PM EST) HPV High Risk Positive(A) Negative [facility] HPV Genotype 16 Negative Negative [facility] HPV Genotype 18 Negative Negative [facility] Comment:HPV testing performe d at [facility] (CLIA#[id number]), [address] [place] [address].Testing for HPV was performed using the Marsha [...] Provider LAB BLOOD ORDERAB LES Final Result [facility] [address] [place] [phone] * Pap Smear (01/19/2025 3:52 PM EST) 01/19/2025 3:52 PM EST 01/22/2025 6:25 AM EDT Narrative [facility] - 01/25/2025 10:34 AM EDT ----- ------- Name: Sophy Gongora ? Age/Sex: 64/F ? : 1960 Unit#: [id number] ?? Attend Dr: Viet Mario MD ?Re01/19/25 ?Status: DEP REF ? Location: HO.LNP ?Disch: ? ----- ------- SPEC : [id number] ? RECD: 01/22/25 ? STATUS: ??SOUT ? REQ NUM: [id number] ? SIGIFREDO: 01/19/25-1551 ? SUBM DR: Viet [...] Copies To: ?? Name,Ran TAVARES ?? [address] ?? [place] [address] ?? [phone] ?? Viet Mario MD ?? [facility] ?? [address] ?? [place] [address] ?? [phone] ----- ------- Signed (signature on file) Mauricio Santamaria MD 01/25/25 1034 ? ----- ------- ? END OF REPORT ? us Generic External Data Provider LAB CYTOLOGY ORDE YENIFER Final Result Performing Organization Address [facility] de Phone Number [facility] [address] [place] [phone] * Albumin, Random Urine W/Creatinine (07/25/2024 11:47 AM EDT) Creatinine, Urine 123.17 mg/dL [facility] Microalbumin Urine 13.0 mg/L [facility] Microalbum Creatinine Ratio Ur 10.5 <30 ug/mg cr [facility] Comment:Albumin/Creatinine R atio Reference Ranges: Normal: < 30 ug/mg creatinine Microalbuminuria: 30 - 300 ug/mg creatinineClinical Albuminuria: > 300 ug/mg creatinine Urine (Urine, Random) 07/25/2024 11:47 AM EDT 07/25/2024 1:03 PM EDT Ran Carrasquillo MD LAB URINE ORDERABLES Final Resul t Performing Organization Address [facility] Co de Phone Number [facility] [address] [place] [phone] * (ABNORMAL) Lipid Panel, Standard (07/25/2024 11:30 AM EDT) Triglycerides 259(H) <150 mg/dL [facility] Comment:Desirable Triglyceri de: less than 150 mg/dLBorderline High Triglyceride 150-199 mg/dLHigh Triglyceride: 200-499 mg/dLVery High Triglyceride: greater than or equal to 5OO mg/dL Cholesterol 224(H) <200 mg/dL [facility] Comment:Desirable Cholestero l: less than 200 mg/dLBorderline High Cholesterol: 200-239 mg/dLHigh Cholesterol: greater than 239 mg/dL LDL Cholesterol Calculated 128(H) <100 mg/dL [facility] Comment:Desirable LDL: less than 100 mg/dLNear Optimal/Above Optimal LDL: 110- 129 mg/dLBorderline High LDL: 130-159 mg/dLHigh LDL: 160-189 mg/dLVery High LDL: greater than or equal to 190 mg/dL HDL Cholesterol 45 >40 mg/dL [facility] Comment:Desirable HDL: great er than 40 mg/dL Note: This HDL assay may give artificially low results in patients with liver disease. Blood Venous blood specimen / Unknown 07/25/2024 11:30 AM EDT 07/25/2024 1:15 PM EDT us Ran Carrasquillo MD LAB BLOOD ORDERABLES Final Resul t [facility] [address] [place] [phone] * Colposcopy (05/27/2023) Historical Provider IN CLINIC/BEDSIDE ORDERAB LES Final Result * Hm Colonoscopy (01/12/2022 3:24 PM EST) Colonoscopy Normal Normal Narrative Magalis Layton - 01/12/2022 3:24 PM EST Recommended 10 year follow up Historical Provider HEALTH MAINTENANCE Final Result from Last 3 Months or Most Recently Relevant to Health Maintenance Insurance [facility] PPO Care Teams Merchandising Professor Relationship Specialty Start Date End Date Name, MD Ran [address] [place] [phone] PCP - General Family Medicine 11/15/18
--- OUTSIDE RECORDS SUMMARY | 2025-03-13 18:35 | XMS_ITS | Encounter Summary ---
Author Organization [employer] Address [address] [place] [address] Care Team Providers Care Informatics Developer Name Role Phone Name, Ran TAVARES Primary Care Provider [phone] Reason for Visit * Reason Comments Med Refill Encounter Details Date Type Department Care Team ([facility] st Contact Info) Description 11/03/2023 Refill [facility] [address] [place], [place] [phone] Name, MD Ran [address] [place] [address] Essential hypertension Social History Tobacco Use Types [...] the past 12 months, has t he [employer], oil or water company threatened to shut [...] Description 03/27/2025 9:45 AM EDT Office Visit [facility] [address] [place] [address] documented as of this encounter Visit Diagnoses Diagnosis Essential hypertension Unspecified essential hypertension documented in this encounter Additional Health Concerns Assessment Noted Time PHQ-9 Depression Total Score: 19 023 4:10 PM EDT documented as of this encounter Care Teams Informatics Developer Relationship Specialty Start Date End Date Name, MD Ran [address] [place] [address] PCP - General Family Medicine 11/15/18 documented as of this encounter
--- OUTSIDE RECORDS SUMMARY | 2025-03-13 18:35 | XMS_ITS | Encounter Summary ---
Author Organization [facility] [employer] Address [address] 7t [place] [address] Care Team Providers Care Welding Machine Operator Electroslag Name Role Phone Name, Ran TAVARES Primary Care Provider [phone] Reason for Visit * Reason Comments Med Refill Encounter Details Date Type Department Care Team ([facility] st Contact Info) Description 11/12/[address] [facility] MEDICINE [address] [place], [place] [phone] Name, MD Ran [address] [place] [address] Seasonal allergic rhinitis, unspecified trigger Social History [...] Description 03/27/2025 9:45 AM EDT Office Visit [facility] MEDICINE [address] [place] [address] documented as of this encounter Visit Diagnoses Diagnosis Seasonal allergic rhinitis, unspecified trigger documented in this encounter Additional Health Concerns Assessment Noted Time PHQ-9 Depression Total Score: 19 023 4:10 PM EDT documented as of this encounter Care Teams Welding Machine Operator Electroslag Relationship Specialty Start Date End Date Name, MD Ran [address] [place] [address] PCP - General Family Medicine 11/15/18 documented as of this encounter
--- OUTSIDE RECORDS SUMMARY | 2025-03-13 18:35 | XMS_ITS | Encounter Summary ---
Author Organization [employer] Address [address] 7[address] [place] [address] Care Team Providers Care Fabricator Artificial Breast Name Role Phone Name, Ran TAVARES Primary Care Provider [phone] Reason for Visit * Reason Comments Med Refill Encounter Details Date Type Department Care Team ([facility] st Contact Info) Description 02/19/2024 Refill [facility] MED[facility] [address] [place], [place] [phone] Name, MD aRn [address] [place] [address] Social History Tobacco Use Types Packs/Day Years [...] Description 03/27/2025 9:45 AM EDT Office Visit [facility] MED[facility]INE [address] [place] [address] documented as of this encounter Visit Diagnoses Not on filedocumented in this encounter Additional Health Concerns Assessment Noted Time PHQ-9 Depression Total Score: 19 023 4:10 PM EDT documented as of this encounter Care Teams Fabricator Artificial Breast Relationship Specialty Start Date End Date Name, MD Ran [address] [place] [address] PCP - General Family Medicine 11/15/18 documented as of this encounter
--- OUTSIDE RECORDS SUMMARY | 2025-03-13 18:35 | XMS_ITS | Encounter Summary ---
Author Organization [facility] Address [address] [address] Care Team Providers Care Color Paste Mixing Supervisor Name Role Phone Name, Ran TAVARES Primary Care Provider Unavailabl e Name, Ran TAVARES Primary Care Provider Unavailabl e Encounter Details Date Type Department Care Team Description 01/16/2014 [facility] Medical Records [address] [place] [address] Frank Holden MD [address] [place] [address] Social History Tobacco Use Types Packs/Day Years [...] on filedocumented in this encounter Care Teams Color Paste Mixing Supervisor Relationship Specialty Start Date End Date Ran Carrasquillo MD PCP - General 03/04/09 12/30/15 Ran Carrasquillo MD PCP - General Internal Medicine 12/31/15 documented as of this encounter
--- OUTSIDE RECORDS SUMMARY | 2025-03-13 18:35 | XMS_ITS | Encounter Summary ---
Author Organization [employer] Address [address] 7[address] [place] [address] Care Team Providers Care Fast Food Manager Name Role Phone Name, Ran TAVARES Primary Care Provider [phone] Reason for Visit * Reason Onset Date Comments Appointment Request 02/10/2023 Encounter Details Date Type Department Care Team ([facility] st Contact Info) Description 02/10/2023 Telephone [facility] MEDICINE [address] [place] [address] [phone] Name, MD Ran [address] [place], [place] [phone] Appointment Request Social History Tobacco Use Types [...] r/s once again. Please contact pt at [phone]. PCP Dr. Name * Telephone Encounter - Michelle Ghosh - 02/10/2023 11:50 AM EDT Tc from pt requesting to r/s appt for DERM NEW on 02/12/2023 Please contact pt at [phone] Sami Speaker documented in this encounter Plan of Treatment Upcoming Encounters Date Type Department Care Team (Late st Contact Info) Description 03/27/2025 9:45 AM EDT Office Visit [facility] MEDICINE [address] [place] [address] documented as of this encounter Visit Diagnoses Not on filedocumented in this encounter Care Teams Fast Food Manager Relationship Specialty Start Date End Date Name, MD Ran [address] [place] [address] PCP - General Family Medicine 11/15/18 documented as of this encounter
--- OUTSIDE RECORDS SUMMARY | 2025-03-13 18:35 | XMS_ITS | Encounter Summary ---
Author Organization [employer] Address [address] 7[address] [place] [address] Care Team Providers Care Cable Installer Repairer Name Role Phone Name, Ran TAVARES Primary Care Provider [phone] Encounter Details Date Type Department Care Team (Late Contact Info) Description 04/26/2023 Abstract [facility] MEDICINE [address] [place] [address] [phone] Name, MD Ran [address] [place] [address] [phone] Social History Tobacco Use Types Packs/Day Years [...] Department Care Team (Late Contact Info) Description 03/27/2025 9:45 AM EDT Office Visit [address] [phone] documented as of this encounter Procedures Procedure Name Priority Date/Time Associated Diagnosis Comments COLONOSCOPY Routine 01/12/2022 3:24 PM EST documented in this encounter Results * Colonoscopy (01/12/2022 3:24 PM EST) Colonoscopy Normal Normal Narrative Magalis Layton - 01/12/2022 3:24 PM EST Recommended 10 year follow up us Historical Provider HEALTH MAINTENANCE Final Result documented in this encounter Visit Diagnoses Not on filedocumented in this encounter Care Teams Cable Installer Repairer Relationship Specialty Start Date End Date Name, MD Ran [address] [place] [address] PCP - General Family Medicine 11/15/18 documented as of this encounter
--- OUTSIDE RECORDS SUMMARY | 2025-03-13 18:35 | XMS_ITS | Encounter Summary ---
Author Organization [employer] Address [address] [place] [address] Care Team Providers Care Historical Guide Name Role Phone Name, Ran TAVARES Primary Care Provider [phone] Reason for Visit * Reason Comments Med Refill Encounter Details Date Type Department Care Team ([facility] st Contact Info) Description 10/06/2023 Refill [facility] MEDICINE [address] [place], [place] [phone] [facility] [address] [place], [place] [phone] Social History Tobacco Use Types Packs/Day Years [...] the past 12 months, has t he [employer], oil or water company threatened to shut [...] Description 03/27/2025 9:45 AM EDT Office Visit [facility] MEDICINE [address] [place] [address] documented as of this encounter Visit Diagnoses Not on filedocumented in this encounter Additional Health Concerns Assessment Noted Time PHQ-9 Depression Total Score: 19 023 4:10 PM EDT documented as of this encounter Care Teams Historical Guide Relationship Specialty Start Date End Date Name, MD Ran [address] [place] [address] PCP - General Family Medicine 11/15/18 documented as of this encounter
--- OUTSIDE RECORDS SUMMARY | 2025-03-13 18:35 | XMS_ITS | Encounter Summary ---
Author Organization [facility] Address [address] [place] [address] Care Team Providers Care Ticket Clerk Name Role Phone Ran Carrasquillo MD Primary Care Provider Unavailabl e NameRan MD Primary Care Provider Unavailabl e Encounter Details Date Type Department Care Team Description 11/20/2014 [facility] [address] [address] Ran Carrasquillo MD Social History Tobacco Use Types Packs/Day [...] on filedocumented in this encounter Care Teams Ticket Clerk Relationship Specialty Start Date End Date Ran Carrasquillo MD PCP - General 03/04/09 12/30/15 Ran Carrasquillo MD PCP - General Internal Medicine 12/31/15 documented as of this encounter
--- OUTSIDE RECORDS SUMMARY | 2025-03-13 18:36 | XMS_ITS | Encounter Summary ---
Author Organization [employer] Address [address] 7[address] [place] [address] Care Team Providers Care Nut Packer Name Role Phone Ran Carrasquillo MD Primary Care Provider [phone] Reason for Referral * Consultation (Routine) - Authorized Specialty Diagnoses / Procedures Referred By Mohit t Referred To Contact Behavioral Health Diagnoses ALCON (generalized anxiety disorder) Ran Carrasquillo MD [address] [place] [address] Phone: tel: fax: Referral ID Status Reason Start Date Expiration Date Visits Requested Visits Authorized [id number] Authorized Specialty Services Required 03/12/2025 03/12/2026 1 1 Reason for Visit * Reason Comments Diabetes Encounter Details Date Type Department Care Team (Late st Contact Info) Description 03/12/2025 11:15 AM EDT Office Visit [facility] MEDICINE [address] [place] [address] [phone] Ran Carrasquillo MD [address] [place] [address] [phone] Type 2 diabetes mellitus without complication, without long-term current use of insulin ([facility]) (Primary Dx); Weight gain; ALCON (generalized anxiety disorder); Essential hypertension Social History Tobacco Use Types [...] AM EDT documented as of this encounter Last Filed Vital Signs Vital Sign Reading [...] Mass Index 24.03 03/12/2025 11:11 AM EDT documented in this encounter Progress Notes * Ran Carrasquillo MD - 03/12/2025 11:15 AM EDT Images from the original note were not included. Subjective Patient ID: Sophy Turner is a 64 y.o. female who presents for Diabetes. Patient comes for follow-up visit. Blood sugar is well-controlled based on the hemoglobin A1c but she describes hyperglycemia at home. She has noted Trulicity is not suppressing her appetite as much as it used to and she gained weight in the past year. She would like to increase her dose of Trulicity and I agreed. She is not having any GI side effects of the medication. BP was initially elevated but repeat was much better. Patient complains of a lot of anxiety. She is interested in meeting with a behavioral health therapist again. She denies severe depression. She is not suicidal. Review of Systems Constitutional: Negative for chills and fever. HENT: Negative for sore throat. Respiratory: Negative for cough, shortness of breath and wheezing. Cardiovascular: Negative for chest pain, palpitations and leg swelling. Gastrointestinal: Negative for abdominal pain. Visit Vitals BP 132/85 Pulse 103 Temp 96.5 ??F (35.8 ??C) (Temporal) Resp 18 Ht 5' 2 (1.575 m) Wt 131 lb 6.4 oz (59.6 kg) SpO2 98% BMI 24.03 kg/m?? Smoking Status Never BSA 1.61 m?? Objective Physical Exam Constitutional: Appearance: Normal appearance. Cardiovascular: Rate and Rhythm: Normal rate and regular rhythm. Heart sounds: No murmur heard. No gallop. Pulmonary: Effort: Pulmonary effort is normal. No respiratory distress. Breath sounds: Normal breath sounds. No wheezing. Musculoskeletal: Right lower leg: No edema. Left lower leg: No edema. Neurological: Mental Status: She is alert. Lab Results Component Value Date HGBA1C 6.2 (A) 03/12/2025 HGBA1C 6.1 (A) 07/28/2024 HGBA1C 6.1 (A) 09/21/2023 HGBA1C 7.5 (A) 06/29/2023 HGBA1C 7.1 (A) 01/20/2023 HGBA1C 7.2 (H) 09/24/2021 [facility] Reference Range & Units 07/25/24 11:30 Glucose 60 - 115 mg/dL 101 Urea Nitrogen (BUN) 9 - 16 mg/dL 14 Creatinine, Serum 0.5 - 1.4 mg/dL 0.79 Sodium 135 - 145 mmol/L 138 Potassium 3.3 - 5.1 mmol/L 4.5 Chloride 96 - 108 mmol/L 105 Carbon Dioxide 22 - 29 mmol/L 26 Calcium 8.4 - 10.2 mg/dL 9.6 Albumin Level 3.5 - 5.0 g/dL 4.3 Bilirubin, Total 0.0 - 1.0 mg/dL 0.2 AST 5 - 31 U/L 15 ALT 0 - 31 U/L 12 Anion Gap 12 - 20 12 Total Protein 6.5 - 8.0 g/dL 7.3 Cholesterol <200 mg/dL 224 (H) HDL Cholesterol >40 mg/dL 45 LDL Cholesterol Calculated <100 mg/dL 128 (H) Triglycerides <150 mg/dL 259 (H) Red Blood Count 4.20 - 5.50 X10*6/uL 4.57 Hemoglobin 12.0 - 16.0 g/dl 13.5 Hematocrit 37.0 - 47.0 % 40.8 Mean Corpuscular Volume 80.0 - 98.0 fL 89.3 Mean Corpuscular Hemoglobin 27.0 - 33.0 pg 29.5 Mean Corpuscular HGB Conc 31.0 - 35.0 g/dl 33.1 Red Cell Distribution Width 11.0 - 16.0 % 13.8 Platelet Count 160 - 400 X10*3/uL 298 Eosinophils Percent Auto 0 - 4 % 0.4 Lymphocytes Absolute Auto 1.2 - 4.9 X10*3/uL 2.5 Basophils Absolute Auto 0.0 - 0.2 X10*3/uL 0.1 Monocytes Absolute Auto 0.1 - 1.2 X10*3/uL 0.6 Neutrophils Absolute Auto 2.0 - 8.3 x10*3/uL 5.0 Neutrophils Percent Auto 45 - 73 % 60.6 Basophils Percent Auto 0 - 2 % 1.4 Eosinophils Absolute Auto 0.0 - 0.4 X10*3/uL 0.0 Lymphocytes Percent Auto 20 - 40 % 30.1 Monocytes Percent Auto 2 - 11 % 7.1 Imm Gran Abs Auto 0.00 - 0.03 X10*3/uL 0.03 Imm Gran Pct Auto 0.0 - 0.4 % 0.4 Alkaline Phosphatase 39 - 117 U/L 90 Estimated Glomerular Filt Rate >60 Mean Platelet Volume 9.4 - 12.3 fL 11.8 NRBC Abs Auto 0.0 - 0.012 X10*3/uL 0.000 NRBC Pct Auto 0.0 - 0.2 /100WBC 0.0 White Blood Count 4.8 - 10.8 X10*3/uL 8.3 (H): Data is abnormally high Assessment/Plan Diagnoses and all orders for this visit: Type 2 diabetes mellitus without complication, without long-term current use of insulin ([facility]) Comments: I will double her dose of Trulicity. She is recommended to walk after meals, avoid sweets and soda,continue current dose of GITA inhibitor, statin. Orders: - POCT Glucose - POCT HGB A1C - Dulaglutide (Trulicity) 3 MG/0.5ML solution auto-injector; Inject 3 mg under the skin 1 (one) time per week. Weight gain Comments: See above Orders: - Dulaglutide (Trulicity) 3 MG/0.5ML solution auto-injector; Inject 3 mg under the skin 1 (one) time per week. ALCON (generalized anxiety disorder) Comments: Referral to for couseling Orders: - Referral to Behavioral Health; Future Essential hypertension Comments: Continue on her current dose of lisinopril Orders: - lisinopril 10 MG tablet; Take 1 tablet (10 mg) by mouth Once per day. Other orders - SUMAtriptan (Imitrex) 50 MG tablet; Take 1 tablet (50 mg) by mouth See administration instructions for 1 dose. May repeat dose once in 2 hours if no relief. Do not exceed 2 doses in 24 hours. - DULoxetine (Cymbalta) [address] capsule; Take 1 capsule (30 mg) by mouth 2 times daily. Do not crush or chew. - gabapentin (Neurontin) 600 MG tablet; Take 1 tablet (600 mg) by mouth 2 times daily. documented in this encounter Plan of Treatment Upcoming Encounters Date Type Department Care Team (Late st Contact Info) Description 03/27/2025 9:45 AM EDT Office Visit [facility] MEDICINE [address] [place] [address] Scheduled Referrals Name Type Priority Associated Diagnoses Order Schedule Referral to Behavioral Health Outpatient Referral Routine ALCON (generalized anxiety disorder) Expected: 03/12/2025 (Approximate), Expires: 03/12/2026 documented as of this encounter Procedures Procedure Name Priority Date/Time Associated Diagnosis Comments POCT GLYCATED HEMOGLOBIN, TOTAL Routine 03/12/2025 11:13 AM EDT Type 2 diabetes mellitus without complication, without long-term current use of insulin ([facility]) POCT GLUCOSE Routine 03/12/2025 11:12 AM EDT Type 2 diabetes mellitus without complication, without long-term current use of insulin ([facility]) documented in this encounter Results * (ABNORMAL) POCT HGB A1C (03/12/2025 11:13 AM EDT) Hemoglobin A1C 6.2(A) 4.0 - 6.0 % QC Media Lot # [id number] Lot# Expiration Date 110,426 Blood 03/12/2025 11:1 3 AM EDT Result Lucian Carrasquillo MD POINT OF CARE TEST ENTER/EDIT OR DERABLES Final Result * POCT Glucose (03/12/2025 11:12 AM EDT) Glucose Blood, POC 113 60 - 200 mg/dL QC Media Lot # [id number] Lot# Expiration Date 82,625 Blood Capillary blood specimen / Unknown 03/12/2025 11:12 AM EDT Result Lucian Carrasquillo MD POINT OF CARE TEST ENTER/EDIT OR DERABLES Final Result documented in this encounter Visit Diagnoses Diagnosis Type 2 diabetes mellitus without complication, without long-term current use of insulin ([facility])- Primary Weight gain Other symptoms concerning nutrition, metabolism, and development ALCON (generalized anxiety disorder) Generalized anxiety disorder Essential hypertension Unspecified essential hypertension documented in this encounter Additional Health Concerns Assessment Noted Time PHQ-9 Depression Total Score: 16 025 11:37 AM EDT documented as of this encounter Care Teams Nut Packer Relationship Specialty Start Date End Date Name, MD Ran [address] [place] [address] PCP - General Family Medicine 11/15/18 documented as of this encounter
--- OUTSIDE RECORDS SUMMARY | 2025-03-13 18:36 | XMS_ITS | Encounter Summary ---
Author Organization [employer] Address [address] [place] [address] Care Team Providers Care Hat Band Attacher Name Role Phone Name, Ran TAVARES Primary Care Provider [phone] Reason for Visit * Reason Comments Med Refill Encounter Details Date Type Department Care Team ([facility] st Contact Info) Description 12/29/2024 Refill [facility] MEDICINE [address] [place], [place] [phone] Name, MD Ran [address] [place] [address] Social History Tobacco Use Types Packs/Day Years [...] Description 03/27/2025 9:45 AM EDT Office Visit [facility]ICINE [address] [place] [address] documented as of this encounter Visit Diagnoses Not on filedocumented in this encounter Additional Health Concerns Assessment Noted Time PHQ-9 Depression Total Score: 11 024 9:57 AM EST documented as of this encounter Care Teams Hat Band Attacher Relationship Specialty Start Date End Date Name, MD Ran [address] [place] [address] PCP - General Family Medicine 11/15/18 documented as of this encounter
--- OUTSIDE RECORDS SUMMARY | 2025-03-13 18:36 | XMS_ITS | Encounter Summary ---
Author Organization [employer] Address [address] [place] [address] Care Team Providers Care Property Man Name Role Phone Name, Ran TAVARES Primary Care Provider Reason for Visit * Reason Comments Med Refill Encounter Details Date Type Department Care Team ([facility] st Contact Info) Description 03/17/2024 Refill [facility] MEDICINE [address] [place], [place] [phone] Name, MD Ran [address] [place] [address] Social History Tobacco Use Types Packs/Day Years [...] Description 03/27/2025 9:45 AM EDT Office Visit [facility] MEDICINE [address] [place] [address] documented as of this encounter Visit Diagnoses Not on filedocumented in this encounter Additional Health Concerns Assessment Noted Time PHQ-9 Depression Total Score: 19 023 4:10 PM EDT documented as of this encounter Care Teams Property Man Relationship Specialty Start Date End Date Name, MD Ran [address] [place] [address] PCP - General Family Medicine 11/15/18 documented as of this encounter
--- OUTSIDE RECORDS SUMMARY | 2025-03-13 18:36 | XMS_ITS | Encounter Summary ---
Author Organization [facility] Address [address] [place] [address] Care Team Providers Care Transport Manager Name Role Phone Name, Ran TAVARES Primary Care Provider Unavailabl e Encounter Details Date Type Department Care Team Description 06/08/2017 [facility] Medical Records [address] [place] [id number] Abstract, Provider Social History Tobacco Use Types [...] on filedocumented in this encounter Care Teams Transport Manager Relationship Specialty Start Date End Date Name, MD Ran PCP - General Internal Medicine 12/31/15 documented as of this encounter
--- OUTSIDE RECORDS SUMMARY | 2025-03-13 18:36 | XMS_ITS | Encounter Summary ---
Author Organization [email or web address] Address [address] [place] [address] Care Team Providers Care Scrap Shear Operator Name Role Phone Name, Ran TAVARES Primary Care Provider [phone] Reason for Visit * Reason Onset Date Comments Med Refill 06/01/2024 Encounter Details Date Type Department Care Team ([facility] st Contact Info) Description 06/01/2024 Telephone [facility] MEDICINE [address] [place], [place] [phone] Name, MD Ran [address] [place], [place] [phone] Med Refill Social History Tobacco Use Types [...] mg immediate release tablet rx. Filled at [facility] [place], for qty - 112 for 28 days supply. Meds. [facility] for approval. * Telephone Encounter - Aure Ferreira - 06/01/2024 1:20 PM EDT TC from pt requesting medication refill. Medications needing refill : oxyCODONE (Roxicodone) 10 MG immediate release tablet To be sent to: [id number] - [address] [facility] documented in this encounter Plan of Treatment Upcoming Encounters Date Type Department Care Team ([facility] st Contact Info) Description 03/27/2025 9:45 AM EDT Office Visit [facility] MEDICINE [address] [place] [address] documented as of this encounter Visit Diagnoses Not on filedocumented in this encounter Additional Health Concerns Assessment Noted Time PHQ-9 Depression Total Score: 19 023 4:10 PM EDT documented as of this encounter Care Teams Scrap Shear Operator Relationship Specialty Start Date End Date Name, MD Ran [address] [place] [address] PCP - General Family Medicine 11/15/18 documented as of this encounter
--- OUTSIDE RECORDS SUMMARY | 2025-03-13 18:36 | XMS_ITS | Encounter Summary ---
Author Organization [employer] Address [address] [place] [address] Care Team Providers Care Strap Folding Machine Operator Name Role Phone Name, Ran TAVARES Primary Care Provider [phone] Reason for Visit * Reason Comments Med Refill Encounter Details Date Type Department Care Team ([facility] st Contact Info) Description 01/15/2025 Refill [facility] MEDICINE [address] [place], [place] [phone] Name, MD Ran [address] [place] [address] Seasonal allergic rhinitis, unspecified trigger Social History [...] 9:45 AM EDT Office Visit [facility] MEDICINE [address] [place] [address] documented as of this encounter Visit Diagnoses Diagnosis Seasonal allergic rhinitis, unspecified trigger documented in this encounter Additional Health Concerns Assessment Noted Time PHQ-9 Depression Total Score: 11 024 9:57 AM EST documented as of this encounter Care Teams Strap Folding Machine Operator Relationship Specialty Start Date End Date Name, MD Ran [address] [place] [address] PCP - General Family Medicine 11/15/18 documented as of this encounter
--- OUTSIDE RECORDS SUMMARY | 2025-03-13 18:36 | XMS_ITS | Encounter Summary ---
Author Organization [employer] Address [address] [facility] [address] [address] 7[address] [place] [address] Care Team Providers Care Minister Helper Name Role Phone Name, Ran TAVARES Primary Care Provider [phone] Reason for Visit * Reason Onset Date Comments appt change 01/21/2023 Encounter Details Date Type Department Care Team ([facility] Contact Info) Description 01/21/2023 Telephone [facility] [address] [place], [place] [phone] Name, MD Ran [address] [place] [address] appt change Social History Tobacco Use Types [...] Upcoming Encounters Date Type Department Care Team ([facility] Contact Info) Description 03/27/2025 9:45 AM EDT Office Visit [facility] [address] [place] [address] documented as of this encounter Visit Diagnoses Not on filedocumented in this encounter Care Teams Minister Helper Relationship Specialty Start Date End Date Name, MD Ran [address] [place] [address] PCP - General Family Medicine 11/15/18 documented as of this encounter
--- OUTSIDE RECORDS SUMMARY | 2025-03-13 18:36 | XMS_ITS | Encounter Summary ---
Author Organization [employer] Address [address] [facility] [address] 7[address] [place] [address] Care Team Providers Care Drill Sergeant Name Role Phone Name, Ran TAVARES Primary Care Provider [phone] Reason for Visit * Reason Comments Med Refill Encounter Details Date Type Department Care Team ([facility] st Contact Info) Description 06/22/2024 Refill [facility] [address] [place], [place] [phone] Name, MD Ran [address] [place] [address] Social History Tobacco Use Types Packs/Day Years [...] 03/27/2025 9:45 AM EDT Office Visit [facility] [address] [place] [address] documented as of this encounter Visit Diagnoses Not on filedocumented in this encounter Additional Health Concerns Assessment Noted Time PHQ-9 Depression Total Score: 19 023 4:10 PM EDT documented as of this encounter Care Teams Drill Sergeant Relationship Specialty Start Date End Date Name, MD Ran [address] [place] [address] PCP - General Family Medicine 11/15/18 documented as of this encounter
--- OUTSIDE RECORDS SUMMARY | 2025-03-13 18:36 | XMS_ITS | Encounter Summary ---
Author Organization [employer] Address [address] [facility] [address] 7[address] [place] [address] Care Team Providers Care Fur Remodeler Name Role Phone Name, Ran TAVARES Primary Care Provider [phone] Encounter Details Date Type Department Care Team (Latest Contact Info) Description 03/12/2025 Travel Social History Tobacco Use Types Packs/Day [...] Description 03/27/2025 9:45 AM EDT Office Visit [facility] MEDICINE [address] [place] [address] documented as of this encounter Visit Diagnoses Not on filedocumented in this encounter Additional Health Concerns Assessment Noted Time PHQ-9 Depression Total Score: 16 03/12/2 025 11:37 AM EDT documented as of this encounter Care Teams Fur Remodeler Relationship Specialty Start Date End Date Name, MD Ran 230 [place] [address] PCP - General Family Medicine 11/15/18 documented as of this encounter
--- OUTSIDE RECORDS SUMMARY | 2025-03-13 18:36 | XMS_ITS | Encounter Summary ---
Author Organization [employer] Address [address] [facility] [address] [facility] [address] 7[address] [place] [address] Care Team Providers Care Leisure Travel Agent Name Role Phone Name, Ran TAVARES Primary Care Provider [phone] Reason for Visit * Reason Onset Date Comments Appointment Request 08/24/2024 Encounter Details Date Type Department Care Team ([facility] st Contact Info) Description 08/24/2024 Telephone [facility] MEDICINE [address] [place], [place] [phone] Name, MD Ran [address] [place] [address] Appointment Request Social History Tobacco Use Types [...] pain management appt. Please contact pt at [phone]. (Danish Speaker) documented in this encounter Plan of Treatment Upcoming Encounters Date Type Department Care Team (Late st Contact Info) Description 03/27/2025 9:45 AM EDT Office Visit [facility] MEDICINE [address] [place] [address] documented as of this encounter Visit Diagnoses Not on filedocumented in this encounter Additional Health Concerns Assessment Noted Time PHQ-9 Depression Total Score: 19 023 4:10 PM EDT documented as of this encounter Care Teams Leisure Travel Agent Relationship Specialty Start Date End Date Name, MD Ran [address] [place] [address] PCP - General Family Medicine 11/15/18 documented as of this encounter
--- OUTSIDE RECORDS SUMMARY | 2025-03-13 18:36 | XMS_ITS | Encounter Summary ---
Author Organization [employer] Address [address] [facility] [facility] [address] 7[address] [place] [address] Care Team Providers Care Hot Molder Name Role Phone Name, Ran TAVARES Primary Care Provider [phone] Encounter Details Date Type Department Care Team (Late st Contact Info) Description 03/06/2025 Orders Only [facility] External Provider, [facility] Social History Tobacco Use Types Packs/Day Years [...] Description 03/27/2025 9:45 AM EDT Office Visit [facility] [address] [facility] [place] [address] documented as of this encounter Procedures Procedure Name Priority Date/Time Associated Diagnosis Comments BI MAMMOGRAM SCREENING TOMOSYNTHESIS BILATERAL Routine 03/06/2025 2:28 PM EDT documented in this encounter Results * BI Mammogram Screening Tomosynthesis Bilateral (03/06/2025 2:28 PM EDT) Anatomical Region Laterality Modality Breast Bilateral Mammography 03/06/2025 2:28 PM EDT Narrative 03/12/2025 5:04 PM EDT ? [facility] ? [address] ?[place] [address] ?[phone] ? Mammography Report ? Signed ? Patient: Rolan,Sophy L ? MR#: [id number] ? : 1960 ?Acct:[id number] ? Age/Sex: 64 / F ?ADM Date: 04/22/25 ? Loc: HO.MAMMO ? Attending Dr: Viet Mario MD ? Ordering Physician: Viet Mario MD ?Results: 2Benign ?? Findings ? Date of Service: 03/06/25 ?Follow Up: 1 Year From Orig ?? inal Mammogram ? Procedure(s): MM tomosynthesis screening BI ?? Accession Number(s): [id number] ? cc: Ran Carrasquillo MD; Viet Mario MD ? EXAMINATION: ?? MM [...] ??Sandra Camejo DO ??03/12/2025 05:01 PM EDT ?? RP ? Dictated By: ?Sandra Camejo DO ? Signed By: ?<Electronically signed by Sandra Camejo, DO in OV> ? 03/12/25 1701 ? DD/ 1428 ? TD/TT: 03/06/25 1445 ? Lobbyist: ? Procedure Note Donotuseinterpreter, Image - 03/12/2025 [facility] [address] [place], [place] [address] Mammography Report Signed Patient: Sophy Gongora MR#: [id number] : 2Acct:[id number] Age/Sex: 64 / FADM Date: 03/06/25 Loc: HO.MAMMO Attending Dr: Viet Mario MD Ordering Physician: Viet Mario MDResults: 2Benign Findings Date of Service: 03/06/25Follow Up: 1 Year From Orig inal Mammogram Procedure(s): MM tomosynthesis screening BI Accession Number(s): [id number] cc: Ran Carrasquillo MD; Viet Mario MD EXAMINATION: MM SCREENING DIGITAL [...] for their next mammogram. Electronically signed by: aSndra Camejo DO 03/12/2025 05:01 PM EDT Dictated By: Sandra Camejo DO Signed By: <Electronically signed by Sandra Camejo DO in OV> 03/12/25 1701 DD/ 1428 TD/TT: 03/06/25 1445 Lobbyist: [facility] External Provider IMG BI PROCEDURES Final Result documented in this encounter Visit Diagnoses Not on filedocumented in this encounter Additional Health Concerns Assessment Noted Time PHQ-9 Depression Total Score: 11 024 9:57 AM EST documented as of this encounter Care Teams Hot Molder Relationship Specialty Start Date End Date Name, MD Ran [address] [place] [address] PCP - General Family Medicine 11/15/18 documented as of this encounter
--- OUTSIDE RECORDS SUMMARY | 2025-03-13 18:36 | XMS_ITS | Encounter Summary ---
Author Organization [employer] Address [address] [facility] [address] 7[address] [place] [address] Care Team Providers Care Palaeontologist Name Role Phone Name, Ran TAVARES Primary Care Provider [phone] Reason for Visit * Reason Onset Date Comments CHART PREP 03/09/2025 Encounter Details Date Type Department Care Team ([facility] st Contact Info) Description 03/09/2025 Telephone [facility] [address] [place] [address] [phone] Name, MD Ran 230 [place], [place] [phone] CHART PREP Social History Tobacco Use Types Packs/Day Years [...] encounter Miscellaneous Notes * Telephone Encounter - Lily Moya [place] - 03/09/2025 10:47 AM EDT Chart Prep Labs: not applicable Images: not applicable Referrals: not applicable Vaccines due: yes Pneumo, Zoster Screenings: pap smear mammo done 03/06/25 report not sign Overdue care gaps: A1c, Glucose, ALCON-7, and Disability screen documented in this encounter Plan of Treatment Upcoming Encounters Date Type Department Care Team (Late st Contact Info) Description 03/27/2025 9:45 AM EDT Office Visit [facility] 230 [place] [address] documented as of this encounter Visit Diagnoses Not on filedocumented in this encounter Additional Health Concerns Assessment Noted Time PHQ-9 Depression Total Score: 11 024 9:57 AM EST documented as of this encounter Care Teams Palaeontologist Relationship Specialty Start Date End Date Name, MD Ran [address] [place] [address] PCP - General Family Medicine 11/15/18 documented as of this encounter
--- OUTSIDE RECORDS SUMMARY | 2025-03-13 18:36 | XMS_ITS | Encounter Summary ---
Author Organization [facility] Address [address] [facility] [place] [address] Care Team Providers Care Woodwind Instrument Repairer Name Role Phone Name, Ran TAVARES Primary Care Provider Unavailabl e Encounter Details Date Type Department Care Team Description 09/03/2016 Business Doc Medical Records [address] [place] [id number] Abstract, Provider Social History Tobacco Use Types [...] on filedocumented in this encounter Care Teams Woodwind Instrument Repairer Relationship Specialty Start Date End Date Name, MD Ran PCP - General Internal Medicine 12/31/15 documented as of this encounter
--- OUTSIDE RECORDS SUMMARY | 2025-03-13 18:36 | XMS_ITS | Encounter Summary ---
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 (CMS/HCC) Social History Tobacco Use Types Packs/Day Years [...] Description 03/27/2025 9:45 AM EDT Office Visit [facility]INE [address] [place] [address] [phone] documented as of this encounter Visit Diagnoses Diagnosis Type 2 diabetes mellitus without complication, 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
--- OUTSIDE RECORDS SUMMARY | 2025-03-13 18:36 | XMS_ITS | Encounter Summary ---
Author Organization [employer] Address [address] [facility] [facility] [address] 7[address] [place] [address] Care Team Providers Care Manager Of Merchandising Name Role Phone Name, Ran TAVARES Primary Care Provider [phone] Reason for Visit * Reason Onset Date Comments Med Refill 12/21/2024 Encounter Details Date Type Department Care Team ([facility] st Contact Info) Description 12/21/2024 Telephone [facility] MEDICINE [address] [place], [place] [phone] Name, MD Ran 230 [place], [place] [phone] Med Refill Social History Tobacco Use Types [...] 12:41 PM EST Medication was sent to [id number] on 11/03/24 with 11 refills. * Telephone Encounter - Sunday Hinojosa - 12/21/2024 12:08 PM EST TC from pt requesting medication refill. Medications needing refill : Dulaglutide (Trulicity) 1.5 MG/0.5ML solution auto-injector To be sent to: [facility] #[id number] [facility] documented in this encounter Plan of Treatment Upcoming Encounters Date Type Department Care Team ([facility] st Contact Info) Description 03/27/2025 9:45 AM EDT Office Visit [facility] MEDICINE [address] [place] [phone] documented as of this encounter Visit Diagnoses Not on filedocumented in this encounter Additional Health Concerns Assessment Noted Time PHQ-9 Depression Total Score: 11 024 9:57 AM EST documented as of this encounter Care Teams Manager Of Merchandising Relationship Specialty Start Date End Date Name, MD Ran [address] [place] [address] PCP - General Family Medicine 11/15/18 documented as of this encounter
--- OUTSIDE RECORDS SUMMARY | 2025-03-13 18:36 | XMS_ITS | Encounter Summary ---
Author Organization [facility] Address [address] [place] [address] Care Team Providers Care Lens Block Gauger Name Role Phone Name, Ran TAVARES Primary Care Provider Unavailabl e Name, Ran TAVARES Primary Care Provider Unavailabl e Encounter Details Date Type Department Care Team Description 12/13/2015 Release of Information Medical Records [address] [place] [id number] Abstract, Provider Social History Tobacco Use Types [...] on filedocumented in this encounter Care Teams Lens Block Gauger Relationship Specialty Start Date End Date Ran Carrasquillo MD PCP - General 03/04/09 12/30/15 Ran Carrasquillo MD PCP - General Internal Medicine 12/31/15 documented as of this encounter
--- OUTSIDE RECORDS SUMMARY | 2025-03-13 18:36 | XMS_ITS | Encounter Summary ---
Author Organization [facility] Address [address] [place] [address] Care Team Providers Care Director Of Research And Development Name Role Phone Name, Ran TAVARES Primary Care Provider Unavailabl e Encounter Details Date Type Department Care Team Description 02/07/2021 Orders Only Radiology - [place] [address] [place] [address] Sophy Valdez, CN [address] [place] [address] Social History Tobacco Use Types Packs/Day Years [...] on filedocumented in this encounter Care Teams Director Of Research And Development Relationship Specialty Start Date End Date Name, MD Ran PCP - General Internal Medicine 12/31/15 documented as of this encounter
--- OUTSIDE RECORDS SUMMARY | 2025-03-13 18:36 | XMS_ITS | Encounter Summary ---
Author Organization [employer] Address [address] [facility] [facility] [address] 7[address] [place] [address] Care Team Providers Care Director Field Services Name Role Phone Name, Ran TAVARES Primary Care Provider Reason for Visit * Reason Onset Date Comments Appointment Request 12/01/2024 Encounter Details Date Type Department Care Team ([facility] st Contact Info) Description 12/01/2024 Telephone [facility] MEDICINE [address] [place], [place] [phone] Name, MD Ran [address] [place], [place] [phone] Appointment Request Social History Tobacco Use Types [...] Description 03/27/2025 9:45 AM EDT Office Visit [facility] MEDICINE [address] [place] [address] documented as of this encounter Visit Diagnoses Not on filedocumented in this encounter Additional Health Concerns Assessment Noted Time PHQ-9 Depression Total Score: 11 024 9:57 AM EST documented as of this encounter Care Teams Director Field Services Relationship Specialty Start Date End Date Name, MD Ran [address] [place] [address] PCP - General Family Medicine 11/15/18 documented as of this encounter
--- OUTSIDE RECORDS SUMMARY | 2025-03-13 18:37 | XMS_ITS | Encounter Summary ---
Author Organization [facility] Address [address] [place] [address] Care Team Providers Care Computer Network Support Specialist Name Role Phone Name, Ran TAVARES Primary Care Provider Unavailabl e Encounter Details Date Type Department Care Team Description 06/12/2019 Business Doc Medical Records [address] [place] [address] Abstract, Provider Social History Tobacco Use Types [...] on filedocumented in this encounter Care Teams Computer Network Support Specialist Relationship Specialty Start Date End Date Name, MD Ran PCP - General Internal Medicine 12/31/15 documented as of this encounter
--- OUTSIDE RECORDS SUMMARY | 2025-03-13 18:37 | XMS_ITS | Encounter Summary ---
Author Organization [facility] Address [address] [place] [address] Care Team Providers Care Lockstitch Sleeve Maker Name Role Phone Name, Ran TAVARES Primary Care Provider Unavailabl e Name, Ran TAVARES Primary Care Provider Unavailabl e Reason for Visit * Reason Onset Date Comments medication problems 06/03/2012 Encounter Details Date Type Department Care Team Description 06/03/2012 Telephone Adult Medicine [address] [address] Name, MD Ran medication problems Social History [...] EDT Who is calling? A pharmacist: Pharmacy: [facility] Pharmacist Name: [facility] Pharmacy Phone # [...] on filedocumented in this encounter Care Teams Lockstitch Sleeve Maker Relationship Specialty Start Date End Date Name, MD Ran PCP - General 03/04/09 12/30/15 Name, MD Ran PCP - General Internal Medicine 12/31/15 documented as of this encounter
--- OUTSIDE RECORDS SUMMARY | 2025-03-13 18:37 | XMS_ITS | Clinical Summary ---
Author Organization [facility] Address [address] [facility] [place] [address] Care Team Providers Care Bakery And Deli Sales Manager Name Role Phone Name, Ran TAVARES Primary Care Provider Unavailabl e Allergies Active Allergy Reactions Severity Noted Date Comments Seasonal Allergies 03/21/2009 Pollen,dust. Medications Medication Sig Dispensed Refills Start Date End Date Status omeprazole (PRILOSEC) 40 MG capsule Take 1 Cap by mouth daily. 30 Cap 11 08/10/2014 Active sumatriptan (IMITREX) 50 MG tablet TAKE 1 TABLE BY MOUTH NEEDED FOR MIGRAINE. MAY REPEAT DOSE ONCE AFTER 2 HOURS, IF NEEDED. 9 Tab 4 02/07/2015 Active ALBUTEROL SULFATE (PROAIR HFA) 108 (90 BASE) MCG/ACT Aero Soln Inhale 2 Puffs into the lungs every 6 hours as needed for Cough or Wheezing. 1 Inhaler 8 08/22/2015 Active fluticasone (FLONASE) 50 MCG/ACT nasal spray 1 Ord by Nasal route daily. 1 Bottle 5 09/27/2015 Active amitriptyline (ELAVIL) 100 MG tablet Take 1 Tab by mouth at bedtime. 30 Tab 0 10/02/2015 Active gabapentin (NEURONTIN) 300 MG capsuleIndications:Depr ession,Fibromyalgia Take 2 Caps by mouth 3 times daily. Take 300 mg by mouth 2 times daily. 0 10/02/2015 Active loratadine (CLARITIN) 10 MG tablet TAKE 1 TABLET BY MOUTH ONCE DAILY 30 Tab 4 11/13/2015 Active OxyCODONE HCl 10 MG TabIndications:Fibromya lgia,Neck pain,Chronic pain,Radiculitis, cervical,Chronic cholecystitis Take 1 Tab by mouth 4 times daily as needed (pain). 112 Tab 0 11/22/2015 Active duloxetine (CYMBALTA) 60 MG capsule Take 1 Cap by mouth daily. 30 Cap 2 11/22/2015 Active polyethylene glycol (GLYCOLAX) powder Take 17 g by mouth daily. 255 g 2 11/22/2015 Active METOPROLOL TARTRATE OR Take by mouth. 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 Patient was operated by Dr. Thompson on 2006 but the pain persists. Patient was also seen by Dr. Kerr and she had another MRI on the neck on 10/2008. She has been recommended operation or continue on narcotics. The patient is currently disabled. Depression 03/21/2009 Overview: Patient is follows at [facility]. She is prescribed antidepressant and Seroquel Anxiety 03/21/2009 Resolved Problems Problem Noted Date Resolved Date Chronic cholecystitis 12/22/2013 10/02/2015 Gallstone 12/19/2013 08/10/2014 Knee pain 04/01/2010 10/29/2011 Overview: Bilateral and anterior. Chondromalacia patella on MRI of the knees Headache 04/26/2009 10/29/2011 Overview: Photophobia/nausea Immunizations Name Administration Dates Next Due Influenza (> 6 Months) 08/22/2009 TD (STATE SUPPLIED FOR ADULTS AND CHILDREN) 05/2013 Family History Medical History Relation Name Comments Cancer of the Prostate Father Diabetes Father Hypertension Father Stroke Father cardiac Father Diabetes Mother hyperlipidemia Mother CA Breast Other mat aunt Blindness Negative Hx Cataract Negative Hx Glaucoma Negative Hx Macular Degeneration Negative Hx Strabismus Negative Hx Relation Name Status Comments Brother Alive [...] Assigned at Date Recorded Not on file Last Filed Vital Signs Vital Sign Reading Time Taken Comments Blood Pressure 126/82 04/20/2019 2:43 PM EDT Pulse 106 04/20/2019 2:43 PM EDT Temperature 37.1 ??C (98.7 ??F) 04/04/2015 4:10 PM ED T Respiratory Rate 16 11/29/2017 4:02 PM EST Oxygen Saturation 97% 04/20/2019 2:43 PM EDT Inhaled Oxygen Concentration - - Weight 63.1 kg (139 lb 3.2 oz) 04/20/2019 2:43 P M EDT Height 156.2 cm (5' 1.5 ) 04/20/2019 2:43 PM EDT Body Mass Index 25.88 04/20/2019 2:43 PM EDT Plan of Treatment Health Maintenance Due Date Last Done Comments Covid-19 Vaccine (#1) 05/07/1961 DEPRESSION SCREEN 1974 BASELINE HEALTH EXAM 40-64 01/22/201201/21, 10/22/2009, 10/15/2009 SHINGLES VACCINE (1 of 2) 2012 CERVICAL CANCER SCREENING 09/01/20192015, 06/06/2013, 02/22/2012, Additional history exists CHOLESTEROL SCREENING 09/03/2019 09/03/2014 , 09/26/2013, 03/21/2013, Additional history exists MAMMOGRAM 06/08/2020 06/08/2019, 0702/2018, 06/04/2017, Additional history exists COLON CANCER SCREENING 08/24/2021 08/24/2011 BMI CHECK/ADVISE 11/15/2024 04/20/2019, 04/2019, 11/29/2017, Additional history exists DEPRESSION SCREENING/FOLLOWUP 11/15/2024, 10/02/2015, 09/03/2014, Additional history exists SOCIAL NEEDS SCREENING 11/15/2024 INFLUENZA (Season Ended) 2025 08/22/2009 DTAP/TDAP/TD (2 - Td or Tdap) 10/19/2026 10/19/2016, 03/21/2013 PNEUMOCOCCAL VACCINE FOR HIG H RISK PATIENTS (#1) 2027 HEPATITIS C SCREENING Completed 06/20/2014, 010 Care Teams Bakery And Deli Sales Manager Relationship Specialty Start Date End Date Name, MD Ran PCP - General Internal Medicine 12/31/15
--- OUTSIDE RECORDS SUMMARY | 2025-03-13 18:37 | XMS_ITS | Clinical Summary ---
Author Organization [email or web address] Address [address] [place] [address] Care Team Providers Care Burner Technician Name Role Phone Name, Ran TAVARES Primary Care Provider [phone] Surgical History Surgery Date Site/Laterality Comments NECK SURGERY PROCEDURE: HISTORICAL NECK SURGERY; COMMENT: CS disc herniation OTHER SURGICAL HISTORY PROCEDURE: LAPAROSCOPY PROCEDURE NEC; COMMENT: pelvic for endometriosis OTHER SURGICAL HISTORY PROCEDURE: ME BSO W/OMENTECTOMY SARAH&RAD DEBULKING DISSECTION; COMMENT: right sided COLONOSCOPY 08/24/2011 PROCEDURE: ME COLONOSCOPY FLX DX W/COLLJ SPEC WHEN PFRMD; COMMENT: normal BREAST REDUCTION 2011 Bilateral PROCEDURE: ME BREAST REDUCTION; COMMENT: had repeat surgery Medical [...] Recently Relevant to Health Maintenance Care Teams Burner Technician Relationship Specialty Start Date End Date Name, MD Ran [address] [place], [place] PCP - General Internal Medicine 03/04/09
== END 2025-03-13 14:43 | disposition home or self-care (01) ==
LOC: HO.LNP 14:42
PROVIDERS: PCP Internal Medicine Geriatric Medicine; Visit Provider Obstetrics & Gynecology
DX: R87.610 Atypical squamous cells of undetermined significance on cytologic smear of cervix (ASC-US) (principal); R87.810 Cervical high risk human papillomavirus (HPV) DNA test positive
CPT/HCPCS: 57454; 88305; 88341; 88342

== ENCOUNTER 2025-03-13 14:42 | Outpatient (AMB) | payer MEDICARE, SELFPAY ==
--- NOTE | 2025-03-13 15:15 | A.OFFVIS_ITS ---
Intake Visit Reasons: Colposcopy Heating Operators Engineer Required: Yes Heating Operators Engineer Language: Professor Of Apologetics Services: Heating Operators Engineer Present (in person) Heating Operators Engineer Name: ANITA Cohen Information Interpreted: non-clinical & clinical Tool Room Supervisor: Tool Room Supervisor Present Accompanied by: Self / Same As Patient Allergies Seasonal Allergies Allergy (Intermediate, Verified 03/13/25 15:16) Itchy Eyes/nasal congestion HPI Comments Details: Presenting for abnormal Pap smear showing ascus/HPV positive. HPV 16/18 negative PFSH Medical History (Updated 03/13/25 @ 15:26 by Viet Mario MD) ASCUS with positive high risk HPV cervical Elevated cholesterol Osteoarthritis Migraines Fibromyalgia Diabetes HTN (hypertension) Surgical History Hx of cholecystectomy History of left oophorectomy Hx of reduction mammoplasty Hx of cervical discectomy Family History Father Colon cancer Mother Breast cancer Social History Patient Tobacco Use Status: Tobacco use Unknown Female Reproductive History Menstrual Age of Menarche: 14 Review of Systems Const All systems reviewed & are unremarkable except as noted in HPI and below Reports as per HPI and Reports no additional complaints GI Reports no additional complaints Reports no additional complaints Office Procedures Colposcopy Colposcopy: Pre-Procedure Counseling: Before beginning the procedure, I conducted comprehensive counseling with the patient. We thoroughly discussed the procedure itself, including its details, alternatives, and all associated risks. This included but not limited to the following complications such as bleeding, infection, and injury to the vagina, bladder, and vessels, as well as the potential need for transfusion with all its associated risks. Subsequently, the patient sign the consent. Pap smear result: Ascus HPV positive, HPV 16/18 negative Procedure: During the procedure, the following steps were performed: A speculum was inserted, and acetic acid was applied. Colposcopy was conducted, allowing visualization of the transformation zone. Acetowhite lesions were identified at the 7+4 o'clock position. Cervical biopsies were obtained from the 7+4 o'clock position, followed by an endocervical curettage (ECC). Vaginoscopy of the upper vagina revealed no evidence of aceto-white lesions. Hemostasis was achieved using Monsel solution, and the patient tolerated the procedure well. Post-Procedure Instructions: The patient was advised to promptly contact the office or the after hours answering service or go to the emergency room if experiencing a temperature exceeding 100.4?F, abdominal pain, nausea/vomiting, or bleeding. Additionally, the patient was instructed to abstain from vaginal intercourse and bathtub use. The patient confirmed understanding of these instructions. Discharge Instructions: The patient was instructed to schedule a follow-up appointment in 2 weeks for further evaluation and management. Please note that this note was generated using a voice recognition program, and errors may have occurred during beverage host. [id number] of cervix including upper vagina with biopsy and ECC Procedure code (CPT) selection complete Assessment & Plan Assessment & Plan (1) ASCUS with positive high risk HPV cervical: Comment: HPV 16/18 negative Code(s): R87.610 - Atypical squamous cells of undetermined significance on cytologic smear of cervix (ASC-US); R87.810 - Cervical high risk human papillomavirus (HPV) DNA test positive Category: Medical Plan: Discussed with the patient the result of her abnormal pap, its significance, risk of progression, persistence, and regression. the false positive/negative rate of a Pap smear as a screening test in detecting cervical cancer and the indication for a diagnostic test -colposcopy, biopsy, endocervical curettage. The patient verbalized understanding and agreed with the plan, all questions answered. Colpo biopsy ECC done, see procedure note Orders: Orders AMB Colposcopy Today R87.610 - Atypical squamous cells of undetermined significance on cytologic smear of cervix (ASC-US), R87.810 - Cervical high risk human papillomavirus (HPV) DNA test positive Coding Level of Care Code Procedure Only Diagnoses ASCUS with positive high risk HPV cervical R87.610; R87.810 CPT Codes Colposcopy - CPT: 58476-Rmwoyjhhy of cervix including upper vagina with biopsy and ECC ([id number])
== END 2025-03-13 15:40 | disposition home or self-care (01) ==
LOC: HO.HWS 14:42
PROVIDERS: PCP Internal Medicine Geriatric Medicine; Visit Provider Obstetrics & Gynecology
DX: R87.610 Atypical squamous cells of undetermined significance on cytologic smear of cervix (ASC-US) (principal); R87.810 Cervical high risk human papillomavirus (HPV) DNA test positive
CPT/HCPCS: 57454

== ENCOUNTER 2025-04-12 14:17 | Outpatient (AMB) | payer MEDICARE, SELFPAY ==
--- NOTE | 2025-04-12 14:21 | MHC.OFFVIS ---
Vital Signs 04/12/25 14:23 Height 5 ft 1 in Weight 127 lb BMI 24.0 BP 124/72 Intake Visit Reasons: Colpo Results Asset Management Coordinator Required: Yes Asset Management Coordinator Language: Dental Officer Services: Asset Management Coordinator Present (in person) Asset Management Coordinator Name: Missy HOWARD Information Interpreted: non-clinical & clinical Accompanied by: Self / Same As Patient Allergies Seasonal Allergies Allergy (Intermediate, Verified 04/12/25 14:26) Itchy Eyes/nasal congestion Post menopausal: Yes HPI Comments Details: Presenting post colpo for follow-up. The patient is doing well with no complaints. The pathology showed the following: A. Endocervix, curettage: Few superficial strips of endocervical epithelium within normal limits; mucoinflammatory material. B. Cervix, 4 o'clock, biopsy: - Inflamed atrophic squamous mucosa. - No endocervical epithelium identified. C. Cervix, 7 o'clock, biopsy: Squamous atrophy with inflammation; no endocervical epithelium identified; multiple additional levels examined. COMMENT: The findings are concordant with the patient's recent Pap/cytology specimen ([id number]; ASCUS with positive HR HPV) - slide reviewed [facility] Medical History ASCUS with positive high risk HPV cervical Elevated cholesterol Osteoarthritis Migraines Fibromyalgia Diabetes HTN (hypertension) Surgical History Hx of cholecystectomy History of left oophorectomy Hx of reduction mammoplasty Hx of cervical discectomy Family History Father Colon cancer Mother Breast cancer Social History Patient Tobacco Use Status: Tobacco use Unknown Female Reproductive History Menstrual Age of Menarche: 14 Review of Systems Const All systems reviewed & are unremarkable except as noted in HPI and below Reports as per HPI and Reports no additional complaints GI Reports no additional complaints Reports no additional complaints Physical Exam Vital Signs: Last Vital Signs BP 124/72 04/12/25 14:23 BMI result Body Mass Index 24.0 Assessment & Plan Assessment & Plan (1) ASCUS with positive high risk HPV cervical: Comment: Hi ROsk HPV positive HPV 16/18 negative Code(s): R87.610 - Atypical squamous cells of undetermined significance on cytologic smear of cervix (ASC-US); R87.810 - Cervical high risk human papillomavirus (HPV) DNA test positive Category: Medical Plan: Discussed with the patient the pathology results of the colposcopy biopsies & endocervical curettage. Discussed with the patient the sensitivity specificity, positive and negative predictive value in detecting cervical cancer in addition discussed the regression, persistence and progression rates. Recommended co-testing in 12 months, if cytology and or HPV are abnormal will proceed was colposcopy biopsy and endocervical curettage. Instructions given to the patient to schedule a co test appointment in 1 year. All questions answered the patient verbalized understanding. Coding Level of Care Code Est Pt Level 3 (54662) Diagnoses ASCUS with positive high risk HPV cervical R87.610; R87.810
[2025-04-12 14:23] VITALS: BP 124/72; BMI 24.0
--- OUTSIDE RECORDS SUMMARY | 2025-04-12 14:25 | XMS_ITS | Encounter Summary ---
Author Organization [employer] Address [address] [place] [address] Care Team Providers Care Processing Assistant Name Role Phone Name, Ran TAVARES Primary Care Provider [phone] Reason for Visit * Reason Comments Med Refill Encounter Details Date Type Department Care Team ([facility] st Contact Info) Description 11/12/2023 Refill [facility] [address], [place] [phone] Name, MD Ran [address] [place] [address] Seasonal allergic rhinitis, unspecified trigger Social History [...] Care Team (Late st Contact Info) Description 04/24/2025 9:45 AM EDT Office Visit [facility] [address] [place] [phone] 07/02/2025 3:30 PM EDT Office Visit [facility] [address] [place] [phone] Name, MD Ran [address] [place] [id number] documented as of this encounter Visit Diagnoses Diagnosis Seasonal allergic rhinitis, unspecified trigger documented in this encounter Additional Health Concerns Assessment Noted Time PHQ-9 Depression Total Score: 19 023 4:10 PM EDT documented as of this encounter Care Teams Processing Assistant Relationship Specialty Start Date End Date NameRan MD [address] [place] [id number] PCP - General Family Medicine 11/15/18 documented as of this encounter
== END 2025-04-12 14:37 | disposition home or self-care (01) ==
LOC: HO.HWS 14:18
PROVIDERS: PCP Internal Medicine Geriatric Medicine; Visit Provider Obstetrics & Gynecology
DX: R87.610 Atypical squamous cells of undetermined significance on cytologic smear of cervix (ASC-US) (principal); R87.810 Cervical high risk human papillomavirus (HPV) DNA test positive
CPT/HCPCS: 99213

== ENCOUNTER → 2025-04-12 14:17 | Outpatient (BNVA) | payer MEDICARE, SELFPAY | PROVIDERS: PCP Internal Medicine Geriatric Medicine; Visit Provider Obstetrics & Gynecology | DX: R87.610 Atypical squamous cells of undetermined significance on cytologic smear of cervix (ASC-US) (principal); R87.810 Cervical high risk human papillomavirus (HPV) DNA test positive | CPT/HCPCS: 99212 ==